=== PATIENT | male | born 1945 | race Caucasian/White ===

== ENCOUNTER 2019-11-03 12:44 | Emergency (ER) | payer BC, SELFPAY ==
--- NOTE | ~2019-11-03 | XR_ITS ---
EXAMINATION: XR chest 1V portable INDICATION: Weakness and diarrhea TECHNIQUE: Portable AP chest at 1317 hours COMPARISON: None available FINDINGS: The lungs are free of acute opacities. There is no pleural effusion or pneumothorax. The ca rdiomediastinal silhouette is normal. The visualized bones and soft tissues are unremarkable. IMPRESSION: 1. No acute cardiopulmonary abnormality. Reviewed, dictated and finalized at location A.
[2019-11-03 12:49] VITALS: BP 160/79; PULSE 79; RESP 18; TEMP 36.9; O2SAT 100
[2019-11-03] MEDS: LACTATED RINGERS 1,000 ML 999 ML IV CONT ×2 (13:17→15:49)
[2019-11-03 13:22] LABS: Basophils Absolute Auto 0.1 K/mm3 (0.0-0.1); Basophils Percent Auto 0.7 % (0.2-1.2); Eosinophils Absolute Auto 0.4 K/mm3 (0-0.3); Hematocrit 42.8 % (42.0-52.0); Hemoglobin 14.4 g/dL (14.0-18.0); Immature Granulocyte Absolute 0.05 K/mm3 (0.00-0.031); Immature Granulocyte Percent A 0.5 % (0-0.5); Lymphocytes Absolute Auto 2.12 K/mm3 (0.9-3.2); Lymphocytes Percent Auto 22.7 % (18.3-44.2); Mean Corpuscular HGB Conc 33.6 g/dl (32-36); Mean Corpuscular Hemoglobin 29.6 pg (26-34); Mean Corpuscular Volume 87.9 fl (80-100); Monocytes Absolute Auto 1.1 K/mm3 (0.1-0.6); Monocytes Percent Auto 11.5 % (2.6-8.5); Neutrophils Absolute Auto 5.7 K/mm3 (1.3-6.7); Neutrophils Percent Auto 60.6 % (45.5-73.1); Platelet Count Result 369 k/mm3 (150-375); Red Blood Count 4.87 M/mm3 (4.6-6.20); White Blood Count 9.3 K/mm3 (4.5-10.0)
[2019-11-03 14:00] LABS: Alanine Aminotransferase 47 U/L (4-50); Albumin Level 3.7 g/dL (3.5-5.1); Alkaline Phosphatase 71 U/L (38-126); Aspartate Amino Transferase 39 U/L (17-59); Bilirubin,Total 0.2 mg/dL (0.2-1.3); Blood Urea Nitrogen 13 mg/dL (9-20); Calcium 8.3 mg/dL (8.4-10.2); Carbon Dioxide 29 mmol/L (22-30); Chloride 103 mmol/L (98-107); Estimated CRCL calculation 76 ml/min; Estimated Glomerular Filt Rate > 60; Glucose 129 mg/dL (75-110); Lipase 97 U/L (23-300); Potassium 3.8 mmol/L (3.4-5.0); Sodium 138 mmol/L (137-145)
--- NOTE | 2019-11-03 14:07 | ED.NAVMDI ---
HPI - Nausea/Vomiting/Diarrhea General Chief complaint: Nausea/Vomiting/Diarrhea Stated complaint: Diarrhea, Sent From [facility] Time Seen by Provider: 11/03/19 12:51 Source: patient Mode of arrival: ambulatory Limitations: no limitations History of Present Illness HPI Narrative: This patient is a 74 year old male who presents for evaluation fatigue due to diarrhea. PAtient states he developed diarrhea, nausea and vomiting 2 weeks ago. He states these symptoms started after starting Keflex for an abscess on his neck. He was tested for COVID at that time he was found to be negative. He states his symptoms then resolved but they return on Tuesday. He does not have nausea, vomiting or fever any more but he is having multiple episodes of watery, nonbloody diarrhea. He also denies abdominal pain. He called his Primary Care physician, Dr. Barboza because of his symptoms with fatigue. He was informed to come to ER for IV fluids and evaluation for cdiff. Related Data Home Medications Medication Instructions Recorded Confirmed blood-glucose meter,continuous #1 each 04/12/19 10/19/19 losartan 25 mg tablet 25 mg PO DAILY 04/12/19 10/19/19 insulin glargine 100 unit/mL (3 21 unit SUB-Q DAILY ml 06/05/19 10/19/19 mL) subcutaneous pen Allergies Allergy/AdvReac Type Severity Reaction Status Date / Time No Known Allergies Allergy Verified 10/19/19 08:29 Review of Systems Constitutional: Constitutional: Denies chills, Reports fatigue, Reports fever(s) and Reports weakness ENT: Denies epistaxis and Denies sore throat Cardiovascular: Cardiovascular: Denies chest pain Respiratory: Respiratory: Denies cough and Denies dyspnea Gastrointestinal: Gastrointestinal: Reports diarrhea, Reports nausea and Reports vomiting Musculoskeletal: Musculoskeletal: Denies myalgias [facility] Past Medical History Medical History Erectile dysfunction HLD (hyperlipidemia) HTN (hypertension) Lumbar post-laminectomy syndrome Type 2 diabetes mellitus Surgical History Surgical History Subcutaneous mass of back Social History Social History Smoking status: Former smoker Smoking end date: 05/23/99 Alcohol intake: current Drinks per week: 2 Substance use: never Gender identity (if verbalized by the patient): Male Exam Narrative: Exam Narrative: GENERAL: Well-appearing, well-nourished, and in no acute distress. HEAD: Normocephalic, atraumatic EYES: EOMI, conjunctiva clear without discharge THROAT:Mucous membranes moist, NECK: Supple, without lymphadenopathy or mass RESPIRATORY: No respiratory distress, Airway patent, Respirations non-labored, Clear to auscultation without rales, rhonchi or wheeze HEART: Regular rate and rhythm. No murmur heard. Normal peripheral pulses. ABDOMEN: Soft, nontender, nondistended, normal active bowel sounds. No masses. No rebound or guarding, No organomegaly. EXTREMITIES: No edema, normal strength with full range of motion. SKIN: Warm, dry, normal color without rash NEURO: Alert and oriented x3. CN 2-12 grossly intact. No focal deficits. PSYCH: Normal mood and affect. Course Reevaluation(s) Reevaluation #1: Patient states he feels much better after IVF. His labs are unremarkable. He has not had any diarrhea in ER but he will be sent out with cholestyramine at PCP request . Dr. Barboza will follow up with c diff evaluation. Date: 11/03/19 Time: 15:57 Vital Signs Vital signs: Vital Signs Temperature 98.5 F 11/03/19 12:49 Pulse Rate 79 11/03/19 12:49 Respiratory Rate 18 11/03/19 12:49 Blood Pressure 160/79 H 11/03/19 12:49 Pulse Oximetry 100 11/03/19 12:49 Temperature 98.5 F 11/03/19 12:49 Pulse Rate 78 11/03/19 15:26 Respiratory Rate 18 11/03/19 15:26 Blood Pressure 139/77 06
[2019-11-03 14:20] VITALS: BP 146/75; PULSE 76
[2019-11-03 14:21] VITALS: BP 142/73; PULSE 77
[2019-11-03 14:22] VITALS: BP 143/77; PULSE 79
[2019-11-03 15:26] VITALS: BP 139/77; PULSE 78; RESP 18; O2SAT 99
[2019-11-03 15:38] LABS: Add Urine Microscopic? YES; Amorphous Sediment Urine Few; Appearance Urine Clear (Clear); Bilirubin Urine Negative (Negative); Blood Urine Negative (Negative); Color Urine Yellow (Yellow); Glucose Urine UA Negative (Negative); Ketones Urine Trace mg/dL (Negative); Leukocyte Esterase Ur Negative LEU/UL (Negative); Mucus Urine Rare /lpf; Nitrate Urine Negative (Negative); Protein Urine 1+ mg/dL (Negative); RBC Urine 0-2 /hpf (0-2); Specific Grav Ur 1.028 (1.001-1.035); Squamous Epithelial Cell Urine Rare /hpf (Few); WBC Urine 0-3 /hpf
--- NOTE | 2019-11-09 22:40 | PC.NURSE ---
LATE ENTRY This note is being entered to document information to the patient's record. The following information was omitted on [11/09/2019], by [nicolette weeks rn lr stopped at 16:49]
== END 2019-11-03 16:27 | disposition home or self-care (01) ==
PROVIDERS: Emergency Provider General Practice; PCP Internal Medicine
DX: R19.7 Diarrhea, unspecified (principal); E78.5 Hyperlipidemia, unspecified; I10 Essential (primary) hypertension; E11.9 Type 2 diabetes mellitus without complications; Z87.891 Personal history of nicotine dependence; Z79.4 Long term (current) use of insulin
CPT/HCPCS: 36415; 71045; 80053; 81001; 83690; 85025; 96360; 96361; 99283; J7120

== ENCOUNTER 2019-11-16 15:37 | Outpatient (CLI) | payer BC, SELFPAY ==
[2019-11-16 17:31] LABS: Erythrocyte Sedimentation Rate 17 mm/hr (0-20)
[2019-11-20 20:16] LABS: Gliadin AB, IgG 3 Units (<20); Reticulin IgA Negative (Negative); TTG IGA AB 1 U/mL (<4)
== END 2019-11-16 15:38 | disposition home or self-care (01) ==
LOC: ANHLAB 15:37
PROVIDERS: PCP Internal Medicine; Visit Provider Clinical Nurse Specialist
DX: R19.7 Diarrhea, unspecified (principal)
CPT/HCPCS: 36415; 83516; 85652; 86255; 87045; 87046; 87177; 87209; 87427; 89055

== ENCOUNTER 2020-01-02 11:50 | Outpatient (CLI) | payer BC, SELFPAY ==
[2020-01-02 12:03] LABS: Basophils Absolute Auto 0.1 K/mm3 (0.0-0.1); Basophils Percent Auto 0.9 % (0.2-1.2); Eosinophils Absolute Auto 0.4 K/mm3 (0-0.3); Eosinophils Percent Auto 4.1 % (0-4.4); Hematocrit 45.9 % (42.0-52.0); Hemoglobin 15.3 g/dL (14.0-18.0); Immature Granulocyte Absolute 0.03 K/mm3 (0.00-0.031); Immature Granulocyte Percent A 0.3 % (0-0.5); Lymphocytes Absolute Auto 2.12 K/mm3 (0.9-3.2); Lymphocytes Percent Auto 23.1 % (18.3-44.2); Mean Corpuscular HGB Conc 33.3 g/dl (32-36); Mean Corpuscular Hemoglobin 29.4 pg (26-34); Mean Corpuscular Volume 88.1 fl (80-100); Mean Platelet Volume 8.5 fl (7.4-10.4); Monocytes Absolute Auto 0.9 K/mm3 (0.1-0.6); Monocytes Percent Auto 9.5 % (2.6-8.5); Neutrophils Absolute Auto 5.7 K/mm3 (1.3-6.7); Neutrophils Percent Auto 62.1 % (45.5-73.1); Platelet Count Result 339 k/mm3 (150-375); Red Blood Count 5.21 M/mm3 (4.6-6.20); Red Cell Distribution Width 13.8 % (11.5-14.5); White Blood Count 9.2 K/mm3 (4.5-10.0)
[2020-01-02 12:15] LABS: Anion Gap 9 mmol/L (8-16); Blood Urea Nitrogen 15 mg/dL (9-20); Calcium 8.9 mg/dL (8.4-10.2); Carbon Dioxide 29 mmol/L (22-30); Chloride 99 mmol/L (98-107); Estimated Glomerular Filt Rate > 60; Glucose 179 mg/dL (75-110); Hemoglobin A1C 6.1 % (<5.7); Potassium 4.3 mmol/L (3.4-5.0); Sodium 137 mmol/L (137-145)
== END 2020-01-02 11:51 | disposition home or self-care (01) ==
PROVIDERS: PCP Internal Medicine; Visit Provider Internal Medicine
DX: E11.9 Type 2 diabetes mellitus without complications (principal); Z79.4 Long term (current) use of insulin
CPT/HCPCS: 36415; 80048; 83036; 85025

== ENCOUNTER 2020-02-23 01:27 | Outpatient (CLI) | payer BC, SELFPAY ==
[2020-02-23 17:59] LABS: SARS-CoV-2 RNA PCR Negative
== END 2020-02-23 01:28 | disposition home or self-care (01) ==
LOC: ANHCOVIDDT 01:28
PROVIDERS: PCP Internal Medicine; Visit Provider Surgery
DX: Z01.812 Encounter for preprocedural laboratory examination (principal); Z20.828 Contact with and (suspected) exposure to other viral communicable diseases
CPT/HCPCS: 87635; C9803; U0003

== ENCOUNTER 2020-02-23 08:51 | Outpatient (CLI) | payer BC, SELFPAY ==
--- NOTE | 2020-02-23 09:06 | ECG_ITS ---
Measurements Intervals [place] Rate: 72 P: 45 CO: 185 QRS: 1 QRSD: 99 T: 10 QT: 387 QTc: 425 Interpretive Statements SINUS RHYTHM BORDERLINE T WAVE ABNORMALITY- INFERIOR LEADS BORDERLINE ECG Electronically Signed On 02-23-2020 15:05:28 CDT by Jose De Jesus Gould D.O.
== END 2020-02-23 08:52 | disposition home or self-care (01) ==
LOC: ANHIMG 08:52
PROVIDERS: PCP Internal Medicine; Visit Provider Nurse Practitioner
DX: Z01.818 Encounter for other preprocedural examination (principal); I10 Essential (primary) hypertension
CPT/HCPCS: 93005

== ENCOUNTER 2020-02-25 01:58 | Day surgery (SDC) | payer BC, SELFPAY ==
[2020-02-22 14:24] VITALS: BMI 28.1
--- NOTE | 2020-02-25 08:01 | PM.HPGS ---
History of Present Illness History of Present Illness Consent: Risks, benefits, and alternatives of excision of 2 subcutaneous masses on his back have been discussed and questions answered. Patient agrees to proceed with procedure. Chief complaint: Back Mass times two Narrative: Jermain Scanlon is a 74 year old male who has been seen in the office several times since September of this year. Initially he had developed what appeared to be infected epidermal cyst and 1 site on his back. This had to be drained in the office and subsequently packed. After that he was dealing with some low back pain and some diarrhea which she had to get situated with his medical doctor. He now has these under better control and wishes to proceed with complete excision of the subcutaneous masses thought to be possible epidermal cyst on his mid back. At the time of his last office visit in late September of this year-----Jermain returned to the office 5 weeks after an I&D of a back abscess on 10/12/2019. Patient reported at that time that he was doing well. Patient reported that he had finished the antibiotics that were prescribed for him. He reported two weeks before that he had to go to the ER due to having persistent diarrhea x 2 weeks and was placed on antibiotics and Questrin powder. He reported that he finished these medications and then he was starting to have diarrhea again. He reports that the problem that day may have been that he ate the wrong food the day before. He last had a Cologaurd test he believes last year (2018) through his PCP. He reports that he is no longer packing the area on the back. Denies any complaints or issues with his back incision and states it is no longer tender or bothering him. Once these issues were under control the patient called our office and he is now scheduled to have complete excision of the non inflamed subcutaneous masses on its back. Review of Systems Constitutional: Constitutional: Reports no additional constitutional complaints, Reports fatigue and Denies malaise Eyes: Eyes: Denies change in vision and Denies loss of vision ENT: Reports Normal hearing present, Denies change in voice, Denies dizziness, Denies hoarseness and Denies sore throat Cardiovascular: Cardiovascular: Denies chest pain, Denies leg edema and Denies dyspnea Comments: Known history of hyperlipidemia and hypertension under control with medication. Respiratory: Respiratory: Denies cough, Denies dyspnea and Denies wheezing Gastrointestinal: Gastrointestinal: Denies hematochezia, Denies change in bowel habits and Denies heartburn Genitourinary: Genitourinary: Denies urinary frequency and Denies urinary incontinence Musculoskeletal: Comments: Patient has been having some back pain. This is somewhat improved with physical therapy. He will be having an MRI of the back in 2 days. Neurologic: Reports Normal hearing present, Denies confusion, Denies dizziness, Denies loss of vision, Denies memory loss and Denies seizure-like activity Psychiatric: Psychiatric: Denies confusion, Denies depression and Denies memory loss Endocrine: Endocrine: Denies cold intolerance and Reports fatigue Comments: Has known diabetes mellitus takes insulin and blood sugars are under fairly good control. Hematologic/Lymphatic: Hematologic/Lymphatic: Denies easy bleeding and Denies easy bruising Allergic/Immunologic: Allergic/Immunologic: Denies wheezing PMFSH Past Medical History Medical History Erectile dysfunction HLD (hyperlipidemia) HTN (hypertension) Lumbar post-laminectomy syndrome Type 2 diabetes mellitus Family History Family History Father Family history of malignant neoplasm of bone, Onset Age: 76 Mother Family history of malignant neoplasm of breast in first degree relative, Onset Age: 68 Sibling Benign brain tumor Social History Social History (Re
--- NOTE | 2020-02-25 12:19 | WPDANESEPPF ---
Anes - Initial Pre Proc Eval Procedure: Operation Date: 02/25/20 13:30 Proposed Procedures p Excision Upper Back Mass Times Two - Michael Gallagher MD Date/Time: 02/25/20 12:19 Surgeon: Michael Gallagher MD Pre Op Diagnosis: Back Mass times two Patient Data Age: 74 Gender: M Height: 1.7 m Weight: 81.65 kg Allergies Allergy/AdvReac Type Severity Reaction Status Date / Time aspirin Allergy Unknown Hives Verified 02/22/20 14:09 cephalexin AdvReac Unknown Gastrointestinal Verified 02/22/20 14:08 Upset Home Medications Medication Instructions Recorded Confirmed Type blood-glucose sensor #3 each 06/22/19 02/14/20 Rx pen needle, diabetic 30 gauge x #100 each 07/09/19 02/14/20 Rx 5/16 atorvastatin 20 mg tablet 20 mg PO DAILY #90 tablet 10/08/19 02/22/20 Rx blood-glucose meter,continuous #1 each 11/16/19 02/14/20 Rx blood-glucose transmitter #1 each 11/19/19 02/14/20 Rx metformin 500 mg tablet 1,000 mg PO BID #120 tablet 12/05/19 02/22/20 Rx insulin glargine 100 unit/mL (3 16 unit SUB-Q .HS #15 ml 01/03/20 02/22/20 Rx mL) subcutaneous pen losartan 25 mg tablet 25 mg PO DAILY #90 tablet 02/19/20 02/22/20 Rx Patient hx anesthesia problems: none Family hx anesthesia problems: none PMFSH Past Medical History Medical History Erectile dysfunction HLD (hyperlipidemia) HTN (hypertension) Lumbar post-laminectomy syndrome Type 2 diabetes mellitus Family History Family History Father Family history of malignant neoplasm of bone, Onset Age: 76 Mother Family history of malignant neoplasm of breast in first degree relative, Onset Age: 68 Sibling Benign brain tumor Social History Social History Smoking status: Never smoker Smoking end date: 05/23/99 Alcohol intake: current Drinks per week: 2 Alcohol use details: WINE Substance use: never Living arrangements: with family Gender identity (if verbalized by the patient): Male Spiritual care concerns: No Anes - Eval Final PreProcedure Day of Procedure 02/25/20 12:19 Patient weight: overweight Heart: regular rate and rhythm Lungs: clear to auscultation and normal air movement Airway: Mallampati scale class III Neurological: alert and oriented Last oral intake: >/= 8 hours ASA classification: III Emergent: no Anesthetic plan: proceed Anesthesia type and monitoring: general GIVS and standard monitoring Informed Consent: The patient's anesthetic plan and its attendant risks and benefits were discussed with the patient/family/POA. Questions were solicited and answers provided to the satisfaction of the patient/family/POA.
[2020-02-25 12:38] VITALS: BP 172/83; PULSE 72; RESP 16; TEMP 36.2; O2SAT 99
[2020-02-25 12:38] LABS: Glucose Point of Care 106 (65-105)
[2020-02-25] MEDS: LACTATED RINGERS 1,000 ML 30 ML IV CONT (12:57)
--- NOTE | 2020-02-25 13:05 | WPDHPUPDATE1 ---
History and Physical Update Update Date/Time: 02/25/20 13:05 History and Physical has been reviewed, including an updated exam of the patient. There are NO changes in the patient's condition. Risks, benefits, and alternatives of excision of 2 subcutaneous masses upper mid back have been discussed and questions answered. Patient agrees to proceed with procedure.
[2020-02-25] MEDS: CLINDAMYCIN 900 MG/NS 50 ML 900 MG/50 ML PIGGYBACK 50 MG IVPB (13:17)
[2020-02-25] MEDS: BUPIVACAINE/EPINEPHRINE 0.5% 10 ML VIAL INFILTRATE (13:30)
--- NOTE | 2020-02-25 14:20 | PM.PROC ---
Procedure Note - Detailed Date of procedure: 02/25/20 Pre-op diagnosis: Back Mass times two 1. 3 x 5 cm epidermal cyst( just to left of spinous processes upper back) 2. 3 x 2.5 cm epidermal cyst ( overlying the spinous processes mid upper back). Post-op diagnosis: same Procedure performed: Excision of 2 subcutaneous masses upper mid back. Description of procedure: The patient was placed in the right lateral decubitus position. prior to rolling into that position and LMA was placed by anesthesia and G IV S anesthesia induced. After a surgical time out confirming patient and procedure the patient was prepped and draped in the usual sterile fashion. Local anesthetic was administered subcutaneously. The 2 lesions measured The more superior: 5 x 3 cm and the more inferior midline lesion 3 x 2.5 cm. I 1st addressed the more superior lesion which was the larger. Elliptical excision dyan was made around this with the lesion centered in a vertical oriented ellipse. An elliptical incision was made around the lesion taking a thin margin circumferentially. I dissected down to the deep subcutaneous tissues and then completely excised the lesion. Bleeding was controlled with electrocautery. The wound was closed in two layers. An un-dyed 2-0 vicryl deep dermal and then a 4-0 undyed Monocryl running subcuticular closure was completed. I then addressed the more midline lesion which had previously been infected but had an indentation in it. I outlined in oriented ellipse somewhat angled in order to center the lesion and the previous site of drainage in the ellipse. An elliptical incision was made around the lesion taking a thin margin circumferentially. I dissected down to the deep subcutaneous tissues and then completely excised the lesion. Bleeding was controlled with electrocautery. The wound was closed in two layers. An un-dyed 2-0 vicryl deep dermal and then a 4-0 undyed Monocryl running subcuticular closure was completed. Surgical glue applied as dressing On top of both incisions. Estimated blood loss approximately 10 cc Patient tolerated this well. Implants: none Anesthesia: GLMA Surgeon: Michael Gallagher MD Medical Technologist Prn: ALEJANDRO Gambino, OR 1st assist Estimated blood loss (mL): 10 Drains: No Packing: No Pathology: yes ( both subcutaneous cysts sent for pathology ( suspected epidermal cysts)) Complications: No immediate complications Condition: stable Disposition: same day Findings: 2 non- infected epidermal cysts of the skin and subcutaneous tissue of upper back the more superior 1 without previous infection the more central 1 slightly more inferior with previous history of infection and some scarring in indentation at its upper right corner
[2020-02-25 14:21] VITALS: BP 102/60; PULSE 68; RESP 15; O2SAT 94
[2020-02-25 14:32] LABS: Glucose Point of Care 92 (65-105)
[2020-02-25 14:50] VITALS: BP 139/75; PULSE 65; O2SAT 96
[2020-02-25 15:20] VITALS: BP 152/78; PULSE 60
== END 2020-02-25 15:35 | disposition home or self-care (01) ==
PROVIDERS: PCP Internal Medicine; Visit Provider Surgery
PROC: (CPT 11406; principal; 2020-02-25 13:30)
DX: L72.0 Epidermal cyst (principal); I10 Essential (primary) hypertension; E11.9 Type 2 diabetes mellitus without complications; E78.5 Hyperlipidemia, unspecified; Z79.84 Long term (current) use of oral hypoglycemic drugs; Z79.4 Long term (current) use of insulin
CPT/HCPCS: 11406 ×2; 12032; 88304; J2704; J3010; J7120

== ENCOUNTER 2020-02-27 16:52 | Outpatient (CLI) | payer BC, SELFPAY ==
--- NOTE | ~2020-02-27 | MR_ITS ---
EXAMINATION: MR lumbar spine wo [facility] EXAM DATE: 02/27/2020 17:38 INDICATION: Postlaminectomy syndrome. TECHNIQUE: Multi-sequential, multiplanar MR images of the lumbar spine were obtained without contrast . Sagittal T1, T2, T2 fat saturation images. Axial T2 weighted images. Comparison is made to prior examination from 04/17/2010. FINDINGS: Evidence of remote right laminotomy at L2-3. There is heterogeneous bone marrow signal, wit h some small scattered hemangiomas as well. Moderate to severe disc disease L1-2, L2-3 and L4-5, mode rate at L3-4 and mild to moderate at L5-S1. There is 2 mm retrolisthesis L2 on L3, 3 mm anterolisthes is L5 on S1 without spondylolysis suspected. The conus medullaris terminates at the T12-L1 level and has normal signal intensity and morphology. There is mild diffuse loss of lumbar vertebral body heig hts. Bilateral renal fluid signal intensity lesions consistent with cysts. Level by level evaluation: T12-L1: Disc does not extend beyond the endplate margin. Facet arthropathy: Mild bilateral. Neural foraminal stenosis: No stenosis. Central canal stenosis: No stenosis. L1-L2: There is a mild to moderate diffuse disc bulge. Facet arthropathy: Mild to moderate. Neural foraminal stenosis: Mild to moderate right, mild left. Central canal stenosis: Mild. L2-L3: There is a moderate diffuse disc bulge. Facet arthropathy: Mild to moderate. Neural foraminal stenosis: Moderate bilateral. Central canal stenosis: Mild to moderate. L3-L4: There is a moderate diffuse disc bulge. Facet arthropathy: Mild to moderate . Ligamentum flavum enlargement. Neural foraminal stenosis: Moderate left, mild to moderate right. Central canal stenosis: Moderate. L4-L5: There is a large diffuse disc bulge. Facet arthropathy: Moderate . Ligamentum flavum enlargement. Neural foraminal stenosis: Moderate to severe left, moderate right. Central canal stenosis: Moderate to severe. L5-S1: There is a moderate diffuse disc bulge. Facet arthropathy: Severe. Neural foraminal stenosis: Moderate left, mild to moderate right. Central canal stenosis: Mild to moderate. IMPRESSION: 1. L4-5 moderate to severe central canal stenosis, moderate at L3-4. 2. Moderate to severe multilevel disc disease. Reviewed, dictated and finalized at location B.
== END 2020-02-27 16:53 | disposition home or self-care (01) ==
PROVIDERS: PCP Internal Medicine; Visit Provider Nurse Practitioner
DX: M96.1 Postlaminectomy syndrome, not elsewhere classified (principal)
CPT/HCPCS: 72148

== ENCOUNTER 2020-03-25 09:57 | Outpatient (CLI) | payer BC, SELFPAY ==
--- NOTE | ~2020-03-25 | US_ITS ---
EXAMINATION: US abdomen limited EXAM DATE: 03/25/2020 10:47 INDICATION: R10.11 - Right upper quadrant pain . TECHNIQUE: Multiple grayscale and Doppler images of the abdomen right upper quadrant were obtained (b y a technologist who performed the scan) and subsequently reviewed. There is no prior study for ashley ceballos. FINDINGS: The pancreatic head and body are normal in appearance. The pancreatic tail is not visualized. The l iver has normal echogenicity and contour. Suspect left liver lobe lesion measuring 3.6 cm. Liver les ions are nonspecific by ultrasound. There is no evidence of intrahepatic biliary duct dilation. Por je venous flow was seen in the hepatopedal, normal direction and has normal Doppler waveform. No ri ght-sided hydronephrosis. There is 3 cm right renal cyst. Common bile duct measures 2 mm, which is normal. The gallbladder is moderately distended with severel y thickened wall at 6 mm, possible trace pericholecystic fluid. There is cholelithiasis suspected at the gallbladder neck. Patient didn't demonstrate a sonographic Reddy's sign. IMPRESSION: 1. Probable nonspecific left liver lobe lesion; follow-up CT or MRI with contrast. 2. Findings consistent with acute cholecystitis. STAT hold and call. I confirmed with Genia that patient is in waiting room, and who is notifying ord ering doctor of results. Patient will be given instructions at that time. Reviewed, dictated and finalized at location B. DRAFTSMAN IMPRESSION: 1. Probable nonspecific left liver lobe lesion; follow-up CT or MRI with contr ast. 2. Findings consistent with acute cholecystitis. STAT hold and call. I confirmed with Genia that patient is in waiting room, an d who is notifying ordering doctor of results. Patient will be given instructio ns at that time.
== END 2020-03-25 09:58 | disposition home or self-care (01) ==
LOC: ANHIMG 09:58
PROVIDERS: PCP Internal Medicine; Visit Provider Nurse Practitioner
DX: R10.11 Right upper quadrant pain (principal); R93.89 Abnormal findings on diagnostic imaging of other specified body structures
CPT/HCPCS: 76705

== ENCOUNTER 2020-03-25 12:27 | Day surgery (SDC) | payer BC, SELFPAY ==
[2020-03-25] VITALS (13 sets, daily range): BP systolic 129–156; BP diastolic 63–94; PULSE 84–106; RESP 16–20; TEMP 36.2–36.7; O2SAT 94–100
--- NOTE | 2020-03-25 12:48 | ED.ABDPAIN ---
HPI - Abdominal Pain General Chief Complaint: Abdominal Pain Stated Complaint: Inflanned Gallbladder Time Seen by Provider: 03/25/20 12:40 Source: patient History of Present Illness HPI narrative: 74-year-old male presents to emergency department for cholecystitis. Patient states he has had epigastric pain that has moved to the right upper quadrant since Tuesday. Has not had this type of pain before in the past. Took ibuprofen this morning to help with the pain. Patient saw his family doctor this morning, and was sent in for an ultrasound today, which showed cholecystitis. Patient denies nausea and vomiting. No fever or chills. No chest pain or shortness of breath. Related Data Allergies Allergy/AdvReac Type Severity Reaction Status Date / Time aspirin Allergy Unknown Hives Verified 03/25/20 15:25 cephalexin AdvReac Unknown Gastrointestinal Verified 03/25/20 15:25 Upset Review of Systems Review of Systems: Narrative: CONSTITUTIONAL: Denies fever, chills, or sweats. EYES: Denies visual changes, redness, or discharge. ENT: Denies rhinorrhea, congestion, sore throat, or otalgia. CARDIOVASCULAR: Denies chest pain, palpitations, or edema. RESPIRATORY: Denies cough or dyspnea. GASTROINTESTINAL: Denies abdominal pain, nausea, vomiting, or diarrhea. GENITOURINARY: Denies dysuria or hematuria. SKIN: Denies rash or itching. MUSCULOSKELETAL: Denies back pain, joint pain, or myalgia. NEUROLOGIC: Denies headache, numbness, dizziness, or weakness. PSYCHIATRIC: Denies anxiety or depression. All systems reviewed & are unremarkable except as noted in HPI and below (ROS) [facility] Past Medical History Medical History (Updated 03/25/20 @ 20:59 by Raffi Camargo DO) Erectile dysfunction HLD (hyperlipidemia) HTN (hypertension) Lumbar post-laminectomy syndrome Type 2 diabetes mellitus (Unknown) Surgical History Surgical History Subcutaneous mass of back Family History Family History Father Family history of malignant neoplasm of bone, Onset Age: 76 Mother Family history of malignant neoplasm of breast in first degree relative, Onset Age: 68 Sibling Benign brain tumor Social History Social History Smoking status: Never smoker Smoking end date: 05/23/99 Alcohol intake: current Drinks per week: 2 Substance use: never Gender identity (if verbalized by the patient): Male Spiritual care concerns: No Exam Narrative: Exam Narrative: GENERAL: Well-appearing, well-nourished, and in no acute distress. HEAD: Normocephalic, atraumatic. EYES: PERRLA and EOMI. ENT: Nares clear, no rhinorrhea or epistaxis. Mucous membranes moist. NECK: Supple. CHEST: Clear to auscultation. No respiratory distress. HEART: Regular rate and rhythm. No murmur heard. Normal peripheral pulses. ABDOMEN: Right upper quadrant TTP EXTREMITIES: Normal range of motion. No edema. SKIN: Warm, dry, no rash. NEURO: No focal deficits. Alert and oriented x3. PSYCH: Normal mood and affect. Course Consultations Consultation #1: [id number] - discussed case wtih Dr. Fritz, accepts admission [id number] - discussed case with Dr. Gallagher, agrees to consult Vital Signs Vital signs: Vital Signs Temperature 36.2 C L 03/25/20 12:33 Pulse Rate 106 H 03/25/20 12:33 Respiratory Rate 18 03/25/20 12:33 Blood Pressure 136/71 03/25/20 12:33 Pulse Oximetry 98 03/25/20 12:33 Temperature 36.7 C 03/25/20 17:58 Pulse Rate 86 03/25/20 19:50 Respiratory Rate 20 03/25/20 19:50 Blood Pressure 134/84 03/25/20 19:50 Pulse Oximetry 94 03/25/20 18:50 MDM - Abdominal Pain Medical Records Attestation: I reviewed the patient's medical records. Lab Data Attestation: I reviewed the patient's lab results. Result diagrams: 03/25/20 13:01 03/25/20 13:01
[2020-03-25 13:16] LABS: Basophils Absolute Auto 0.1 K/mm3 (0.0-0.1); Basophils Percent Auto 0.3 % (0.2-1.2); Eosinophils Absolute Auto 0.1 K/mm3 (0-0.3); Eosinophils Percent Auto 0.9 % (0-4.4); Hematocrit 43.5 % (42.0-52.0); Immature Granulocyte Absolute 0.05 K/mm3 (0.00-0.031); Immature Granulocyte Percent A 0.3 % (0-0.5); Lymphocytes Absolute Auto 1.49 K/mm3 (0.9-3.2); Mean Corpuscular HGB Conc 34.5 g/dl (32-36); Mean Corpuscular Hemoglobin 29.6 pg (26-34); Mean Platelet Volume 8.7 fl (7.4-10.4); Monocytes Absolute Auto 1.5 K/mm3 (0.1-0.6); Monocytes Percent Auto 9.7 % (2.6-8.5); Neutrophils Absolute Auto 11.7 K/mm3 (1.3-6.7); Neutrophils Percent Auto 78.8 % (45.5-73.1); Platelet Count Result 312 k/mm3 (150-375); Red Blood Count 5.06 M/mm3 (4.6-6.20); Red Cell Distribution Width 12.8 % (11.5-14.5); White Blood Count 14.9 K/mm3 (4.5-10.0)
[2020-03-25 13:28] LABS: Alanine Aminotransferase 20 U/L (4-50); Albumin Level 4.2 g/dL (3.5-5.1); Alkaline Phosphatase 107 U/L (38-126); Anion Gap 12 mmol/L (8-16); Aspartate Amino Transferase 23 U/L (17-59); Bilirubin,Total 0.7 mg/dL (0.2-1.3); Blood Urea Nitrogen 22 mg/dL (9-20); Calcium 9.2 mg/dL (8.4-10.2); Carbon Dioxide 29 mmol/L (22-30); Chloride 96 mmol/L (98-107); Estimated CRCL calculation 58 ml/min; Estimated Glomerular Filt Rate > 60; Glucose 160 mg/dL (75-110); Potassium 3.7 mmol/L (3.4-5.0); Sodium 137 mmol/L (137-145)
[2020-03-25 13:29] LABS: Lactic Acid Reflex 1.3 mmol/L (0.7-2.1); Lipase 16 U/L (23-300)
[2020-03-25] MEDS: SODIUM CHLORIDE 0.9% IV 1,000 ML 999 ML IV CONT (14:11)
--- NOTE | 2020-03-25 14:45 | PM.IMHP ---
H&P: HPI History of Present Illness Date/Time: 03/25/20 14:45 Chief complaint: Leslye Narrative: Jermain Scanlon is a 74 year old male who is well-known to me as a recent patient now presents to emergency department for acute cholecystitis with cholelithiasis noted on an outpatient ultrasound done today when ordered by his PCP.. Patient states he has had epigastric pain that has moved to the right upper quadrant since Tuesday. Patient states that he had pulled pork and a cheese potato salad on Tuesday evening around 7:00 p.m. and then was awakened from sleep with epigastric and mid abdominal pain about midnight Tuesday night and Tuesday. He has not had this type of pain before in the past. He stated that he took ibuprofen this morning to help with the pain. Patient saw his family doctor this morning, and was sent in for an ultrasound today, which showed cholecystitis With cholelithiasis. Patient denies nausea and vomiting. No fever or chills. No chest pain or shortness of breath. he is also not noted any dark-colored urine or yellowing of the skin. Also seen on the ultrasound and discussed with the patient and his in the ER is a pox possible 3.5 cm mass on the left lobe of the liver. I will plan to evaluate this during surgery and decide whether not is Sineff it is appropriate to do a wedge or a core needle biopsy of this. It could be a hemangioma of the liver and I explained to the patient his that I would not biopsy it if it looks like that Review of Systems Constitutional: Constitutional: Reports as per HPI and Denies headache(s) Eyes: Eyes: Denies loss of vision and Denies eye pain ENT: Reports Normal hearing present, Denies change in voice, Denies dizziness and Denies headache(s) Cardiovascular: Cardiovascular: Denies chest pain and Denies dyspnea Comments: Known history of elevated lipids an on Atorvstatin 20 mg once a day. Respiratory: Respiratory: Denies dyspnea and Denies wheezing Gastrointestinal: Gastrointestinal: Reports abdominal pain ( Mainly in the upper mid and right upper quadrant of the abdomen), Denies nausea and Denies vomiting Musculoskeletal: Musculoskeletal: Denies back pain and Denies arthralgias Integumentary/Breasts: Comments: history of 2 large epidermal cyst on his back which have now been excised. He still has a small opening 1 of the incision sites that is draining serosanguineous fluid. Neurologic: Reports Normal hearing present, Denies dizziness, Denies headache(s), Denies loss of vision and Denies memory loss Psychiatric: Psychiatric: Denies memory loss and Denies panic attacks Endocrine: Endocrine: Reports no additional endocrine complaints Comments: Known type 2 diabetes mellitus on metformin. Also takes insulin at HS. Hematologic/Lymphatic: Hematologic/Lymphatic: Reports no additional hematologic/lymphatic complaints Allergic/Immunologic: Allergic/Immunologic: Denies wheezing PMFSH Past Medical History Medical History (Updated 03/25/20 @ 15:02 by Michael Gallagher MD) Erectile dysfunction HLD (hyperlipidemia) HTN (hypertension) Lumbar post-laminectomy syndrome Type 2 diabetes mellitus (Unknown) Surgical History Surgical History Subcutaneous mass of back Family History Family History Father Family history of malignant neoplasm of bone, Onset Age: 76 Mother Family history of malignant neoplasm of breast in first degree relative, Onset Age: 68 Sibling Benign brain tumor Social History Social History Smoking status: Never smoker Smoking end date: 05/23/99 Alcohol intake: current Drinks per week: 2 Substance use: never Gender identity (if verbalized by the patient): Male Spiritual care concerns: No Meds Home Medications and Allergies Home Medications Medication I
--- NOTE | 2020-03-25 14:59 | WPDANESEPPF ---
Anes - Initial Pre Proc Eval Procedure: Operation Date: 03/25/20 15:00 Proposed Procedures p Laparoscopic Cholecystectomy, Possible Intraoperative Cholangiograms, Possible Liver Biopsy - Michael Gallagher MD Date/Time: 03/25/20 14:59 Surgeon: Michael Gallagher MD Pre Op Diagnosis: Leslye Patient Data Age: 74 Gender: M Height: 1.68 m Weight: 81.6 kg Last Vital Signs Temp 36.2 C L 03/25/20 12:33 Pulse 90 03/25/20 14:15 Resp 16 03/25/20 14:15 BP 129/79 03/25/20 14:15 Pulse Ox 99 03/25/20 14:15 Allergies Allergy/AdvReac Type Severity Reaction Status Date / Time aspirin Allergy Unknown Hives Verified 03/25/20 09:02 cephalexin AdvReac Unknown Gastrointestinal Verified 03/25/20 09:02 Upset Home Medications Medication Instructions Recorded Confirmed Type atorvastatin 20 mg tablet 20 mg PO DAILY #90 tablet 10/08/19 03/13/20 Rx blood-glucose meter,continuous #1 each 11/16/19 03/13/20 Rx insulin glargine 100 unit/mL (3 16 unit SUB-Q .HS #15 ml 01/03/20 03/13/20 Rx mL) subcutaneous pen losartan 25 mg tablet 25 mg PO DAILY #90 tablet 02/19/20 03/13/20 Rx blood-glucose sensor #3 each 02/26/20 03/13/20 Rx metformin 500 mg tablet 1,000 mg PO BID #120 tablet 02/26/20 03/13/20 Rx pen needle, diabetic 30 gauge x #100 each 02/26/20 03/13/20 Rx 10/05 blood-glucose transmitter #1 each 03/25/20 03/25/20 Rx Laboratory Tests 03/25/20 03/25/20 03/25/20 13:01 13:01 13:01 WBC 14.9 K/mm3 H K/mm3 (4.5-10.0) RBC 5.06 M/mm3 M/mm3 (4.6-6.20) Hgb 15.0 g/dL g/dL (14.0-18.0) Hct 43.5 % % (42.0-52.0) MCV 86.0 fl fl (80-100) MCH 29.6 pg pg (26-34) MCHC 34.5 g/dl g/dl (32-36) RDW 12.8 % % (11.5-14.5) Plt Count 312 k/mm3 k/mm3 (150-375) MPV 8.7 fl fl (7.4-10.4) Immature Gran % (Auto) 0.3 % % (0-0.5) Neut % (Auto) 78.8 % H % (45.5-73.1) Lymph % (Auto) 10.0 % L % (18.3-44.2) Banner % (Auto) 9.7 % H % (2.6-8.5) Eos % (Auto) 0.9 % % (0-4.4) Baso % (Auto) 0.3 % % (0.2-1.2) Lymph # (Auto) 1.49 K/mm3 K/mm3 (0.9-3.2) Banner # (Auto) 1.5 K/mm3 H K/mm3 (0.1-0.6) Eos # (Auto) 0.1 K/mm3 K/mm3 (0-0.3) Baso # (Auto) 0.1 K/mm3 K/mm3 (0.0-0.1) Abs Immat Gran (auto) 0.05 K/mm3 H K/mm3 (0.00-0.031) Absolute Neuts (auto) 11.7 K/mm3 H K/mm3 (1.3-6.7) Absolute Nucleated RBC 0.0 K/mm3 K/mm3 (0.0-0.012) Nucleated RBC % 0.0 % % (0.0-0.2) Sodium 137 mmol/L mmol/L (137-145) Potassium 3.7 mmol/L mmol/L (3.4-5.0) Chloride 96 mmol/L L mmol/L (98-107) Carbon Dioxide 29 mmol/L mmol/L (22-30) Anion Gap 12 mmol/L mmol/L (8-16) BUN 22 mg/dL H mg/dL (9-20) Creatinine 0.90 mg/dL mg/dL (0.7-1.3) Estim Creat Clear Calc 58 ml/min ml/min Estimated GFR > 60 (59 - ) Glucose 160 mg/dL H mg/dL (75-110) Lactic Acid 1.3 mmol/L mmol/L (0.7-2.1) Calcium 9.2 mg/dL mg/dL (8.4-10.2) Total Bilirubin 0.7 mg/dL mg/dL (0.2-1.3) AST 23 U/L U/L (17-59) ALT 20 U/L U/L (4-50) Alkaline Phosphatase 107 U/L U/L (38-126) Total Protein 8.0 g/dL g/dL (6.3-8.2) Albumin 4.2 g/dL g/dL (3.5-5.1) Lipase 03/25/20 13:01 WBC RBC Hgb Hct MCV MCH MCHC RDW Plt Count MPV Immature Gran % (Auto) Neut % (Auto) Lymph % (Auto) Banner % (Auto) Eos % (Auto) Baso % (Auto) Lymph # (Auto) Banner # (Auto) Eos # (Auto) Baso # (Auto) Abs Immat Gran (auto) Absolute Neuts (auto) Absolute Nucleated RBC Nucleated RBC % Sodium Potas
[2020-03-25] MEDS: LACTATED RINGERS 1,000 ML 30 ML IV CONT ×2 (15:00→17:58)
[2020-03-25] MEDS: AMPICILLIN SULB 3 GM/NS 100 ML 3 GM/100 ML VIAL IVPB (15:08)
--- NOTE | 2020-03-25 15:28 | WPDHPUPDATE1 ---
History and Physical Update Update Date/Time: 03/25/20 15:28 History and Physical has been reviewed, including an updated exam of the patient. There are NO changes in the patient's condition. Risks, benefits, and alternatives have been discussed and questions answered. Patient agrees to proceed with procedure.
[2020-03-25] MEDS: BUPIVACAINE/EPINEPHRINE 0.25% 50 ML VIAL INFILTRATE (16:01)
--- NOTE | 2020-03-25 16:33 | SUR.OPER ---
Bile culture and sensitivity handed off to Lilliam @ [phone]
--- NOTE | 2020-03-25 18:07 | PM.PROC ---
Procedure Note - Detailed Date of procedure: 03/25/20 Pre-op diagnosis: Leslye Acute Cholecystitis with Cholelithiasis Skin lesion slightly below left of umbilicus anterior abdomen Post-op diagnosis: same Procedure performed: Laparoscopic Cholecystectomy Excision of skin lesion left lower abdomen Description of procedure: Patient was seen preoperatively in the holding area and risks, benefits and alternatives confirmed. Patient was taken to the operating room and general anesthesia was induced. A time out was then preformed with the surgery team confirming patient and site of surgery. The abdomen was prepped and draped in the usual sterile fashion. Incision was made just below the umbilicus with an 11 blade knife. I placed 2 stay sutures of O- Vicryl on either side of the mid-line fascia beneath the umbilicus and was then able to slide in the Tovar cannula through the fascial defect into the peritoneum. First under low flow and then under high flow the abdomen was insufflated with carbon dioxide never exceeding a pressure of 14. Three 5 mm trocars were then introduced under direct vision. The following trocars were introduced under direct vision: a 5 mm in the epigastrium and two 5 mm trocars along the right costal margin laterally in the subcostal area. There was significant omental adhesions to the underside of the gallbladder. These were taken down with blunt and sharp dissection using some Bovie cautery for hemostasis. We were able to dissect this completely away from the neck of the gallbladder. I then carefully used the L-shaped cautery, the 10 mm Right angle instrument and the [place] dissector to dissect out the triangle of Calot. I then was able to dissect out both the cystic duct and cystic artery and identify a window of safety. There was significant inflammation in the area of the triangle of DOLLY also pole with diligent careful dissection the structures appeared to be well delineated. The gall bladder was grasped and the cystic duct and artery were dissected free and clipped with an 10 mm endo-clip early childhood specialist. The cystic duct and artery were clipped with use of 2 clips on the patient's side 1 on the gallbladder side utilizing a 10 mm endoclip-early childhood specialist. The cystic duct was then transected. The cystic artery was also transected at this point. The gall bladder was removed using electrocautery and then removed from the abdomen using an endobag . In order to get the large stone out of the abdomen within the gallbladder I did make the fascial defect slightly larger with Driscoll scissors. Following this the defect in the fascia was about 3 cm. At this point with all the trocar still in we carefully inspected both the anterior and posterior surface of the left lobe of the liver and no obvious lesions could be identified. Therefore no liver biopsy was done. (will ask for the patient to get a CT scan of the abdomen with a hemangioma protocol approximately 1 month after his procedure). The trocars were removed visualizing hemostasis and the remaining gas evacuated. The large trocar site at the umbilicus was closed with use of the 2 stay sutures of 0 Vicryl mentioned above and also a total of 300 and 1. Vicryl sutures to bring the fascial defect back together in the midline. The 2 stay sutures mentioned above on either side of the fascia were also tied together to help approximate this midline fascia. Further local anesthetic was placed into each incision for postop pain control. The skin incisions were closed with subcuticular suture of 4-0 Monocryl. Surgical glue then was applied to all the incisions. There was an approximate 6 x 5 mm skin lesion with a 5 mm base that was amputated with a 15 blade at the end of the procedure. Local anesthetic was infiltrated underneath the prior to excision and it bled hardly at all. Surgical glue was applied over the wound and will heal in by secondary intention. Patient tolerated the procedure well was taken to the r
[2020-03-25 18:12] LABS: Glucose Point of Care 165 (65-105)
--- NOTE | 2020-03-25 18:43 | SUR.PHASEI ---
1835 - Dr. Gallagher at bedside talking with patient
--- NOTE | 2020-03-25 23:51 | PM.EVENT ---
Event Note Event Note Event Note: The patient was initially admitted to the hospitalist service with general surgery consulting, however he went to the OR from the emergency department and was able to be discharged home post cholecystectomy. Thus the patient was not seen or evaluated by the hospitalist service.
== END 2020-03-25 20:07 | disposition home or self-care (01) ==
LOC: ANHED 14:32 → ANHSURGERY 14:51
PROVIDERS: Emergency Provider Emergency Medicine; PCP Internal Medicine; Visit Provider Surgery
PROC: 0FT44ZZ Resection of Gallbladder, Percutaneous Endoscopic Approach (ICD-10-PCS; CPT 47562; principal; 2020-03-25 15:00)
DX: K80.00 Calculus of gallbladder with acute cholecystitis without obstruction (principal); L91.8 Other hypertrophic disorders of the skin; I10 Essential (primary) hypertension; E78.5 Hyperlipidemia, unspecified; E11.9 Type 2 diabetes mellitus without complications; N52.9 Male erectile dysfunction, unspecified; Z79.4 Long term (current) use of insulin; Z79.84 Long term (current) use of oral hypoglycemic drugs
CPT/HCPCS: 47562; 11403; 36415; 80053; 83605; 83690; 85025; 87040; 87070; 87075; 87205; 88304; 88305; 99285; C1713; J0295; J1100; J1165; J2405; J2704; J2710; J3010; J7030; J7120

== ENCOUNTER 2020-04-25 10:59 | Outpatient (CLI) | payer BC, SELFPAY ==
--- NOTE | ~2020-04-25 | CT_ITS ---
EXAMINATION: CT abdomen wo/w con EXAM DATE: 04/25/2020 11:52 INDICATION: Hepatomegaly. Liver mass. TECHNIQUE: Spiral CT of the abdomen was performed without and then with intravenous injection of 100 mL Omnipaque 350. Axial, coronal and sagittal images were reviewed. The dose-length product (DLP) for this examination was 1279.75 mGy-cm. The exposure was tailored according to patient size (auto m A exposure control), and iterative reconstruction (ASIR) was used as additional dose reduction techni que. Correlation is made to ultrasound dated 03/25/2020. FINDINGS: There is hypervascular arterially enhancing mass in the left liver lobe measuring up to 4.1 cm. This could be a malignancy such as primary hepatocellular cancer, carcinoid or other hypervascul ar metastatic lesion. Consider ultrasound-guided biopsy. There are cholecystectomy clips. Portal an d splenic veins are patent. Kidneys enhance symmetrically. There is no hydronephrosis. Bilateral re nal cysts, largest in the superior pole of the left kidney measuring 3.9 cm. There is no retroperit aguilera lymphadenopathy. The stomach and small bowel are unremarkable. There is expected amount of colonic stool. No free i ntraperitoneal gas. The heart is normal in size. There are no pericardial or pleural effusions. T he lung bases are unremarkable. There are no osteoblastic or osteolytic lesions identified. There is advanced lumbar spondylosis and mild to moderate thoracolumbar levoscoliosis. IMPRESSION: Hypervascular left liver lobe mass suspicious for malignancy; consider ultrasound-guided biopsy. Reviewed, dictated and finalized at location A. OR VIDEOTAPE EDITOR IMPRESSION: Hypervascular left liver lobe mass suspicious for malignancy; consi arnoldo ultrasound-guided biopsy.
[2020-04-25 11:30] LABS: Estimated Glomerular Filt Rate > 60
== END 2020-04-25 11:00 | disposition home or self-care (01) ==
LOC: ANHIMG 11:00
PROVIDERS: PCP Internal Medicine; Visit Provider Surgery
DX: K76.89 Other specified diseases of liver (principal)
CPT/HCPCS: 74170; Q9967

== ENCOUNTER 2020-05-02 11:00 | Outpatient (CLI) | payer BC, SELFPAY ==
[2020-05-02 11:49] LABS: Hemoglobin A1C 6.7 % (<5.7)
[2020-05-02 11:54] LABS: Anion Gap 8 mmol/L (8-16); Blood Urea Nitrogen 17 mg/dL (9-20); Calcium 9.1 mg/dL (8.4-10.2); Carbon Dioxide 31 mmol/L (22-30); Chloride 101 mmol/L (98-107); Cholesterol 155 mg/dL (0-200); Estimated Glomerular Filt Rate > 60; Glucose 143 mg/dL (75-110); HDL Direct 35 mg/dL; Potassium 4.2 mmol/L (3.4-5.0); Sodium 140 mmol/L (137-145); Triglycerides 119 mg/dL (<150)
[2020-05-02 12:05] LABS: LDL Cholesterol Direct 94 mg/dL
[2020-05-02 12:06] LABS: Creatinine Urine 173.5 mg/dL
[2020-05-02 12:10] LABS: MALB Creatinine Ratio 23.3 mg/g (0-30); Microalbumin Urine Random 40.4 mg/L (0-16.7)
== END 2020-05-02 11:01 | disposition home or self-care (01) ==
PROVIDERS: PCP Internal Medicine; Visit Provider Internal Medicine
DX: E11.9 Type 2 diabetes mellitus without complications (principal)
CPT/HCPCS: 36415; 80048; 80061; 82043; 83036

== ENCOUNTER 2020-05-05 02:00 | Outpatient (CLI) | payer BC, SELFPAY ==
[2020-05-05 18:35] LABS: SARS-CoV-2 RNA PCR Negative
== END 2020-05-05 02:01 | disposition home or self-care (01) ==
LOC: ANHCOVIDDT 02:00
PROVIDERS: PCP Internal Medicine; Visit Provider Surgery
DX: Z01.812 Encounter for preprocedural laboratory examination (principal); Z20.828 Contact with and (suspected) exposure to other viral communicable diseases
CPT/HCPCS: 87635; C9803; U0003

== ENCOUNTER 2020-05-09 10:50 | Outpatient (CLI) | payer BC, SELFPAY ==
--- NOTE | ~2020-05-09 | MR_ITS ---
EXAMINATION: MR abdomen wo/w con DATE: 05/09/2020 12:20 INDICATION: Liver mass. Hepatomegaly. TECHNIQUE: Magnetic resonance imaging (MRI) of the abdomen was performed without and with 15 mL Multi Jen intravenous contrast. Sequences included coronal T2-weighted FS FSE, coronal and axial FS FIEST A, axial T2-weighted FSE, coronal LAVA-flex, axial STIR FSE, axial DWI, axial dual-echo T1-weighted F SPGR, and axial LAVA. Postcontrast sequences included coronal LAVA-flex and a time course of axial LA VA. COMPARISON: CT abdomen 04/25/20, ultrasound 03/25/2020 FINDINGS: There is a 4.7 cm mass in left hepatic lobe. The mass demonstrates heterogeneous arterial hyperenhanc ement and washout. The gallbladder is absent. The spleen, pancreas, and adrenal glands are normal. Th ere are cysts in the kidneys measuring up to 4.2 cm on the left. There are no dilated loops of bowel. There are no pathologically enlarged lymph nodes. There is no free intraperitoneal fluid. IMPRESSION: 1. 4.7 cm liver mass suspicious for malignancy such as hepatocellular carcinoma or metastatic disease . Ultrasound-guided core needle biopsy is recommended. Reviewed, dictated and finalized at location A. T HISTORY CLERK IMPRESSION: 1. 4.7 cm liver mass suspicious for malignancy such as hepatocellular carcinoma or metastatic disease. Ultrasound-guided core needle biopsy is recommended.
== END 2020-05-09 10:51 | disposition home or self-care (01) ==
PROVIDERS: PCP Internal Medicine; Visit Provider Internal Medicine
DX: R16.0 Hepatomegaly, not elsewhere classified (principal)
CPT/HCPCS: 74183; A9577

== ENCOUNTER 2020-05-13 14:48 | Outpatient (CLI) | payer BC, SELFPAY ==
[2020-05-13 15:13] LABS: Hematocrit 43.3 % (42.0-52.0); Hemoglobin 14.9 g/dL (14.0-18.0); Mean Corpuscular HGB Conc 34.4 g/dl (32-36); Mean Corpuscular Hemoglobin 30.1 pg (26-34); Mean Corpuscular Volume 87.5 fl (80-100); Mean Platelet Volume 8.3 fl (7.4-10.4); Platelet Count Result 380 k/mm3 (150-375); Red Blood Count 4.95 M/mm3 (4.6-6.20); Red Cell Distribution Width 12.8 % (11.5-14.5); White Blood Count 8.3 K/mm3 (4.5-10.0)
[2020-05-13 15:24] LABS: Prothrombin Time 13.6 Seconds (11.1-14.7)
[2020-05-13 15:25] LABS: Partial Thromboplastin Time 28.1 SECONDS (22.3-36.8)
== END 2020-05-13 14:49 | disposition home or self-care (01) ==
LOC: ANHLAB 14:49
PROVIDERS: PCP Internal Medicine; Visit Provider Internal Medicine
DX: Z01.812 Encounter for preprocedural laboratory examination (principal)
CPT/HCPCS: 36415; 85027; 85610; 85730

== ENCOUNTER → 2020-07-28 06:57 | Outpatient (CLI) | payer BC, SELFPAY ==
[2020-07-29 22:47] LABS: SARS-CoV-2 RNA PCR Negative
== END ==
PROVIDERS: PCP Internal Medicine; Visit Provider Internal Medicine
DX: Z01.812 Encounter for preprocedural laboratory examination (principal); Z20.822 Contact with and (suspected) exposure to COVID-19
CPT/HCPCS: C9803; U0003; U0005

== ENCOUNTER 2021-04-26 15:51 | Observation (INO) | payer BC, SELFPAY ==
[2021-04-26] VITALS (29 sets, daily range): BP systolic 152–177; BP diastolic 73–101; PULSE 63–80; RESP 12–20; TEMP 36.2; O2SAT 92–100
--- NOTE | ~2021-04-26 | CT_ITS ---
EXAMINATION: CTA brain carotid DATE: 04/26/2021 17:23 INDICATION: Left-sided numbness. TECHNIQUE: Computed tomographic angiography (CTA) of the head was performed without and with 100 mL O mnipaque-350 intravenous contrast. CTA of the neck was performed with intravenous contrast. Automated exposure control and iterative reconstruction technique were employed. The dose-length product was 1 917.11 mGy-cm. Maximum intensity projection and volume rendered 3D-reconstructions were created by gretel sawant technologist on a separate workstation. COMPARISON: None. FINDINGS: HEAD CTA: There is no intracranial hemorrhage, acute infarction, or abnormal intracranial mass lesion . The ventricles are normal in size. There is mucosal thickening in the paranasal sinuses. The orbits are normal. The mastoid air cells are normal. Right vertebral artery is dominant. There is no signif icant stenosis of basilar artery or the posterior cerebral arteries. There is no significant stenosis of the intracranial internal carotid arteries or anterior or middle cerebral arteries. Anterior comm unicating artery is normal. The posterior communicating arteries are normal. There is no aneurysm. NECK CTA: There are no pathologically enlarged lymph nodes. There is no significant stenosis of the v ertebral arteries. There is plaque in the proximal internal carotid arteries. There is 0% stenosis of the proximal right internal carotid artery relative to normal distal artery lumen diameter (NASCET c riteria). There is 0% stenosis of the proximal left internal carotid artery relative to normal distal artery lumen diameter. There is moderate cervical spondylosis. IMPRESSION: 1. Normal brain. No aneurysm or significant intracranial arterial stenosis. 2. 0% stenosis of the proximal internal carotid arteries relative to normal distal artery lumen diame ters (NASCET criteria). Reviewed, dictated and finalized at location A. CORE DRILL OPERATOR IMPRESSION: 1. Normal brain. No aneurysm or significant intracranial arterial stenosis. 2. 0% stenosis of the proximal internal carotid arteries relative to normal dis je artery lumen diameters (NASCET criteria).
--- NOTE | ~2021-04-26 | US_ITS ---
EXAMINATION: US carotid duplex BI DATE: 04/27/2021 10:00 INDICATION: Left-sided hemiparesis and disturbance of skin sensation TECHNIQUE: Grayscale, color Doppler, and pulsed Doppler images of the cervical carotid arteries were obtained. The degree of vessel stenosis is placed in one of the following categories: normal, <50%, 5 0-69%, >=70% but less than near-occlusion, near-occlusion, or total occlusion. Note that percent sten osis relative to normal distal artery lumen diameter is indirectly measured from velocity measurement s as described by Tre, et al. Radiology 2003; 229:340-346. COMPARISON: Carotid CT angiogram dated 04/26/2021 FINDINGS: RIGHT: The right common carotid artery (CCA) peak systolic velocity (PSV) is 67 cm/s. The right internal car otid artery (ICA) PSV is 64 cm/s. The right ICA end-diastolic velocity (EDV) is 20 cm/s. The right IC A/CCA PSV ratio is 1.0. Grayscale and color Doppler images yield an estimate of <50% diameter reducti on from plaque in the ICA. The external carotid artery (ECA) PSV is 44 cm/s. There is antegrade flow in the right vertebral artery. LEFT: The left CCA PSV is 83 cm/s. The left ICA PSV is 65 cm/s. The left ICA EDV is 10 cm/s. The left ICA/C CA PSV ratio is 0.8. Grayscale and color Doppler images yield an estimate of <50% diameter reduction from plaque in the ICA. The ECA PSV is 56 cm/s. There is antegrade flow in the left vertebral artery. IMPRESSION: 1. Mild stenosis in the right internal carotid artery. 2. Mild stenosis in the left internal carotid artery. Reviewed, dictated and finalized at location B. S AND EVENTS COORDINATOR
--- NOTE | ~2021-04-26 | XR_ITS ---
EXAMINATION: XR knee LT 2V DATE: 04/26/2021 21:13 INDICATION: Left knee numbness. Difficulty ambulating. TECHNIQUE: 2 views of left knee were obtained. COMPARISON: None. FINDINGS: Bone alignment is normal. No fracture. There is mild osteoarthritis of medial and patellofe moral compartments characterized by tiny marginal osteophytes. No joint space narrowing. No knee join t effusion. IMPRESSION: 1. Mild left knee osteoarthritis. Reviewed, dictated and finalized at location A. 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
--- NOTE | ~2021-04-26 | XR_ITS ---
EXAMINATION: XR chest 1V portable DATE: 04/26/2021 16:16 INDICATION: Hand and knee numbness. TECHNIQUE: A single frontal view of the chest was obtained. COMPARISON: Chest single view 11/03/2019, CT abdomen 04/25/2020 FINDINGS: The chest demonstrates clear lungs without pneumonia, pleural effusion, or pneumothorax. Th e heart size is normal. IMPRESSION: 1. No acute cardiopulmonary disease. Reviewed, dictated and finalized at location A. GY MEMBER
--- NOTE | ~2021-04-26 | MR_ITS ---
EXAMINATION: MR brain/brain stem wo/w con DATE: 04/27/2021 09:19 INDICATION: Left-sided numbness. TECHNIQUE: Magnetic resonance imaging (MRI) of the brain and brainstem was performed without and with 15 mL MultiHance intravenous contrast. Sequences included sagittal and axial T1-weighted FSE, axial diffusion-weighted FS EPI, axial T2*-weighted GRE, axial T2-weighted FLAIR Propeller, and axial T2-we ighted Propeller. Postcontrast sequences included axial, sagittal, and coronal T1-weighted FSE. Appar ent diffusion coefficient (ADC) maps were created. COMPARISON: Head CT 04/26/2021 FINDINGS: There is an acute infarct in right thalamus. There are scattered areas of nonspecific incre ased T2-weighted signal intensity in the cerebral white matter. There is no intracranial hemorrhage o r abnormal mass lesion. The ventricles are normal in size. There is mucosal thickening in the paranas al sinuses. The orbits are normal. There is a trace right mastoid effusion. IMPRESSION: 1. Acute infarct in right thalamus. 2. Mild nonspecific cerebral white matter disease, which likely represents chronic small vessel ische jeff disease. Reviewed, dictated and finalized at location A. ICE TECH/WELDER IMPRESSION: 1. Acute infarct in right thalamus. 2. 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
--- NOTE | 2021-04-26 15:59 | ECG_ITS ---
Measurements Intervals [place] Rate: 77 P: 40 IN: 169 QRS: 4 QRSD: 92 T: 13 QT: 357 QTc: 406 Interpretive Statements SINUS RHYTHM INCOMPLETE RIGHT BUNDLE BRANCH BLOCK BASELINE ARTIFACT- II, III, AVR, AVF, V1-V6 BORDERLINE ECG Electronically Signed On 04-26-2021 17:09:54 LEAD NITRATE PROCESSOR by Jose De Jesus Gould D.O.
[2021-04-26 16:22] LABS: Basophils Absolute Auto 0.1 K/mm3 (0.0-0.1); Basophils Percent Auto 0.8 % (0.2-1.2); Eosinophils Absolute Auto 0.3 K/mm3 (0-0.3); Hematocrit 40.3 % (42.0-52.0); Immature Granulocyte Absolute 0.02 K/mm3 (0.00-0.031); Immature Granulocyte Percent A 0.2 % (0-0.5); Lymphocytes Absolute Auto 1.76 K/mm3 (0.9-3.2); Lymphocytes Percent Auto 21.1 % (18.3-44.2); Mean Corpuscular HGB Conc 34.7 g/dl (32-36); Mean Corpuscular Hemoglobin 30.5 pg (26-34); Mean Corpuscular Volume 87.8 fl (80-100); Mean Platelet Volume 8.4 fl (7.4-10.4); Monocytes Absolute Auto 0.7 K/mm3 (0.1-0.6); Monocytes Percent Auto 8.6 % (2.6-8.5); Neutrophils Absolute Auto 5.5 K/mm3 (1.3-6.7); Neutrophils Percent Auto 66.3 % (45.5-73.1); Platelet Count Result 287 k/mm3 (150-375); Red Blood Count 4.59 M/mm3 (4.6-6.20); Red Cell Distribution Width 12.6 % (11.5-14.5); White Blood Count 8.3 K/mm3 (4.5-10.0)
--- NOTE | 2021-04-26 16:31 | ED.GENADULT ---
HPI - General Adult General Chief complaint: Suspected CVA Stated complaint: left side numbness since yesterday Time Seen by Provider: 04/26/21 16:05 Source: patient History of Present Illness HPI narrative: Patient is a 75 y/o male complaining of left side numbness he notice yesterday morning when he woke up. He states that he was fine when he went to sleep around 11:00 PM 2 days ago (04/24/21). There is no known alleviating or exacerbating factor. He has not difficulty with speech. He noticed some left knee weakness today. However, he is able to walk. Related Data Allergies Allergy/AdvReac Type Severity Reaction Status Date / Time cephalexin AdvReac Unknown Diarrhea Verified 04/26/21 19:16 Review of Systems Constitutional: Constitutional: Denies chills, Denies fever(s), Denies headache(s) and Denies weakness Eyes: Eyes: Denies blurry vision ENT: Denies headache(s) and Denies neck pain Cardiovascular: Cardiovascular: Denies chest pain and Denies dyspnea Respiratory: Respiratory: Denies cough and Denies dyspnea Gastrointestinal: Gastrointestinal: Denies abdominal pain, Denies diarrhea, Denies nausea and Denies vomiting Genitourinary: Genitourinary: Denies hematuria and Denies dysuria Musculoskeletal: Musculoskeletal: Denies back pain and Denies neck pain Neurologic: Denies headache(s), Reports paresthesias and Reports weakness PMFSH Past Medical History Medical History (Updated 04/26/21 @ 23:30 by Pia Rudd MD) Erectile dysfunction Hepatocellular carcinoma determined by biopsy of liver HLD (hyperlipidemia) HTN (hypertension) Lumbar post-laminectomy syndrome Type 2 diabetes mellitus (Unknown) Surgical History Surgical History (Updated 04/26/21 @ 21:03 by Stephanie Raymundo NP) H/O laminectomy Hx laparoscopic cholecystectomy Subcutaneous mass of back Family History Family History Father Family history of malignant neoplasm of bone, Onset Age: 76 Mother Family history of malignant neoplasm of breast in first degree relative, Onset Age: 68 Sibling Benign brain tumor Social History Social History (Updated 04/26/21 @ 21:05 by Stephanie Raymundo NP) Social History: The patient lives with his and has 4 children. 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 Patient's lifelong nonsmoker does not use any alcohol marijuana or illicit drugs. Smoking end date: 05/23/99 Alcohol intake: current Drinks per week: 2 Alcohol use details: WINE Substance use: never Gender identity (if verbalized by the patient): Male Spiritual care concerns: No Exam Const: General: no acute distress and well developed Orientation/consciousness: oriented to person, oriented to place, oriented to time and patient oriented x3 HENMT: Head: normocephalic Ears: external ears normal General nose exam: Normal external nose present Eyes: General: appearance normal, both eyes and all related structures Conjunctivae: conjunctivae normal Neck: Neck: normal visual inspection and full ROM Chest: Chest palpation & inspection: normal inspection of the chest and no tenderness Resp: Effort & Inspection: normal respiratory effort Auscultation: clear to auscultation bilaterally Cardio: Rate: regular rate Rhythm: regular rhythm GI: GI Palp: No abdominal tenderness and Yes Soft to palpation Skin: General skin exam: normal color and turgor normal Neuro: General: oriented to person, oriented to place, oriented to time and patient oriented x3 Cognition (Neuro): normal cognition Extrem: General: normal to inspection, full ROM and no pedal edema Psych: Appearance: grossly normal Mental Status: mental status grossly normal Affect: normal affect Course Consultations Consultation #1: Discussed with LADONNA Brown, who agrees to admit. Date: 04/26/21 Time: 18:22 Vital Signs Vital signs: Vital Signs Temperature 36.2 C L 04/26/21 15:56 Pulse Rate 77
[2021-04-26 16:37] LABS: INR 0.9; Prothrombin Time 11.7 Seconds (11.1-14.7)
[2021-04-26 16:44] LABS: Troponin I < 0.012 ng/mL (0.000-0.034)
[2021-04-26 16:55] LABS: Alanine Aminotransferase 16 U/L (4-50); Albumin Level 4.3 g/dL (3.5-5.1); Alkaline Phosphatase 62 U/L (38-126); Anion Gap 9 mmol/L (8-16); Aspartate Amino Transferase 26 U/L (17-59); Bilirubin,Total 0.4 mg/dL (0.2-1.3); Blood Urea Nitrogen 16 mg/dL (9-20); Calcium 8.7 mg/dL (8.4-10.2); Carbon Dioxide 25 mmol/L (22-30); Chloride 101 mmol/L (98-107); Estimated CRCL calculation 55 ml/min; Estimated Glomerular Filt Rate > 60; Glucose 107 mg/dL (65-110); Potassium 4.2 mmol/L (3.4-5.0); Sodium 135 mmol/L (137-145)
--- NOTE | 2021-04-26 20:53 | PM.IMHP ---
H&P: HPI History of Present Illness Date/Time: 04/26/21 20:53 this is a 75-year-old male patient has a history of diabetes type 2. The patient came to the emergency room because he started having numbness and tingling to his left hand yesterday morning when he woke up. The patient's last known normal was around 11:00 p.m. 2 days. The patient stated that he was doing something in the ER today and his left knee felt like it was going out. He stated that he was just feeling weak on his left side. He has no prior history of TIAs or CVAs. He does not take a daily aspirin. Head neck CTA was read as normal brain. No aneurysm and significant intracranial arterial stenosis. 0% stenosis in the proximal internal carotid arteries relative to normal distal artery lumen diameters. Chest x-ray read as no acute cardiopulmonary disease. The patient is being admitted to observation on 04/26/2020. Chief Complaint: Left knee weakness Review of Systems Review of Systems: All systems reviewed & are unremarkable except as noted in HPI and below Constitutional: Constitutional: Reports as per HPI and Reports no additional constitutional complaints Eyes: Eyes: Reports as per HPI and Reports no additional eye complaints ENT: Reports system reviewed and no additional complaints, except as documented and Reports Normal hearing present Cardiovascular: Cardiovascular: Reports no additional cardiovascular complaints Respiratory: Respiratory: Reports no additional respiratory complaints and Reports no additional respiratory complaints Gastrointestinal: Gastrointestinal: Reports as per HPI and Reports no additional gastrointestinal complaints Musculoskeletal: Musculoskeletal: Reports no additional musculoskeletal complaints Integumentary/Breasts: Skin/Breast: Reports system reviewed and no additional complaints, except as docu and Reports as per HPI Neurologic: Reports system reviewed and no additional complaints, except as documented, Reports as per HPI and Reports Normal hearing present Psychiatric: Psychiatric: Reports no additional psychiatric complaints and Reports as per HPI Endocrine: Endocrine: Reports no additional endocrine complaints Hematologic/Lymphatic: Hematologic/Lymphatic: Reports no additional hematologic/lymphatic complaints Allergic/Immunologic: Allergic/Immunologic: Reports no additional allergic/immunologic complaints [facility] Past Medical History Medical History (Updated 04/26/21 @ 21:09 by Stephanie Raymundo NP) Erectile dysfunction Hepatocellular carcinoma determined by biopsy of liver HLD (hyperlipidemia) HTN (hypertension) Lumbar post-laminectomy syndrome Type 2 diabetes mellitus (Unknown) Surgical History Surgical History (Updated 04/26/21 @ 21:03 by Stephanie Raymundo NP) H/O laminectomy Hx laparoscopic cholecystectomy Subcutaneous mass of back Family History Family History Father Family history of malignant neoplasm of bone, Onset Age: 76 Mother Family history of malignant neoplasm of breast in first degree relative, Onset Age: 68 Sibling Benign brain tumor Social History Social History (Updated 04/26/21 @ 21:05 by Stephanie Raymundo NP) Social History: The patient lives with his and has 4 children. 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 Patient's lifelong nonsmoker does not use any alcohol marijuana or illicit drugs. Smoking end date: 05/23/99 Alcohol intake: current Drinks per week: 2 Alcohol use details: WINE Substance use: never Gender identity (if verbalized by the patient): Male Spiritual care concerns: No Meds Home Medications and Allergies Home Medications Medication Instructions Recorded Confirmed Type pen needle, diabetic 30 gauge x #100 each 02/26/20 03/17/21 Rx 5/16 lancets #100 ea 06/30/20 03/17/21 Rx blood sugar diagnostic #100 ea 07/03/20 03/17/21 Rx blood-glucose meter #1 ea 07/03/2002/21
[2021-04-26] MEDS: ATORVASTATIN 20 MG TABLET PO (22:22)
[2021-04-26] MEDS: LOSARTAN POTASSIUM 25 MG TABLET PO (22:22)
[2021-04-26 22:23] LABS: Glucose Point of Care 100 mg/dl (65-105)
[2021-04-26] MEDS: INSULIN GLARGINE (*BKC) 100 UNITS/ML 16 UNITS SUB-Q (23:56)
[2021-04-27] VITALS (15 sets, daily range): BP systolic 147–162; BP diastolic 67–80; PULSE 60–84; RESP 17–19; TEMP 36–36.6; O2SAT 93–98; BMI 27.4
--- NOTE | 2021-04-27 04:32 | ADMGEN ---
This patient, Jermain Scanlon, was admitted to Medical Room 345-01. Patient/family oriented to hospital policies and general routines including ID bracelet, bed and alarms, visiting hours, pain management, procedures, bathroom and other care routines, personal items, smoking policy, room service/diet, and visiting hours. Information on how to activate the Rapid Response Team has been discussed. Patient/Family are encouraged to report perceived risks to care and to ask questions if they do not understand what they are told or what they should do.
[2021-04-27 04:54] LABS: Glucose Point of Care 131 mg/dl (65-105)
--- NOTE | 2021-04-27 06:00 | ECHO_ITS ---
Patient Info Name: Jermain Scanlon Age: 75 years : 1945 Gender: Male Ht: 68 in Wt: 174 lbs BSA: 1.96 m2 HR: 69 bpm BP: 147 / 67 mmHg Technical Quality: Good Exam Date: 04/27/2021 10:30 AM Exam Location: [facility] Patient Status: Outpatient Admit Date: 04/26/2021 Staff Ordering Physician: Pia Rudd MD Gear Changer: Katarina Dickson RDCS Attending Provider: Livia Cole MD Referring Physician: Tobin CAMPOS; Exam Type: CA echo doppler color flow Study Info Indications - TIA Complete two-dimensional, color flow and Doppler transthoracic echocardiogram is performed. Summary 1. Complete two-dimensional, color flow and Doppler transthoracic echocardiogram is performed. 2. Left ventricular chamber dimension is normal. 3. Left ventricular systolic function is normal, estimated at 60-65%. 4. The left ventricular diastolic function is grade I diastolic dysfunction. 5. E/e' 11 is mildly elevated. 6. Left atrial chamber dimension is mildly enlarged. 7. There is mild aortic valve sclerosis. 8. The mitral valve has mildly calcified annulus. 9. There is trace tricuspid valve regurgitation. 10. No pulmonary hypertension, estimated pulmonary arterial systolic pressure is 34 mmHg. Left Ventricle E/e' 11 is mildly elevated. Left ventricular chamber dimension is normal. Left ventricular systolic function is normal, estimated at 60-65%. The left ventricular diastolic function is grade I diastolic dysfunction. Right Ventricle Right ventricular chamber dimension is normal. Right ventricular systolic function is normal. Left Atria Left atrial chamber dimension is mildly enlarged. Right Atria Right atrial chamber dimension is normal. Aortic Valve The aortic valve is trileaflet. There is mild aortic valve sclerosis. There is no aortic valve stenosis. There is no aortic valve regurgitation. Pulmonic Valve There is no pulmonic regurgitation. Mitral Valve The mitral valve has mildly calcified annulus. There is no mitral valve stenosis. There is no mitral valve regurgitation. Tricuspid Valve There is trace tricuspid valve regurgitation. No pulmonary hypertension, estimated pulmonary arterial systolic pressure is 34 mmHg. Pericardium/Pleural There is no pericardial effusion. Inferior Vena Cava Normal inferior vena cava with >50% collapse upon inspiration consistent with normal right atrial pressure, 5 mmHg. Aorta The aortic root size at the sinus of Valsalva is normal. Left Ventricular Outflow Tract Name Value Normal LVOT 2D LVOT Diameter 2.0 cm LVOT Doppler LVOT Peak Gradient 4 mmHg LVOT Mean Gradient 2 mmHg LVOT VTI 26 cm LVOT VTI/AV VTI Ratio 0.9 LVOT Stroke Volume 83 ml LVOT CO 5.5 l/min LVOT CI 2.8 l/min/m2 Pulmonic Valve Name Value Norm
[2021-04-27 06:03] LABS: Basophils Absolute Auto 0.1 K/mm3 (0.0-0.1); Eosinophils Absolute Auto 0.3 K/mm3 (0-0.3); Eosinophils Percent Auto 4.3 % (0-4.4); Hematocrit 41.1 % (42.0-52.0); Hemoglobin 14.1 g/dL (14.0-18.0); Immature Granulocyte Absolute 0.02 K/mm3 (0.00-0.031); Immature Granulocyte Percent A 0.3 % (0-0.5); Lymphocytes Absolute Auto 1.86 K/mm3 (0.9-3.2); Mean Corpuscular HGB Conc 34.3 g/dl (32-36); Mean Corpuscular Hemoglobin 29.7 pg (26-34); Mean Corpuscular Volume 86.5 fl (80-100); Mean Platelet Volume 8.5 fl (7.4-10.4); Monocytes Absolute Auto 0.7 K/mm3 (0.1-0.6); Monocytes Percent Auto 9.7 % (2.6-8.5); Neutrophils Percent Auto 57.7 % (45.5-73.1); Platelet Count Result 307 k/mm3 (150-375); Red Blood Count 4.75 M/mm3 (4.6-6.20); Red Cell Distribution Width 12.1 % (11.5-14.5); White Blood Count 6.9 K/mm3 (4.5-10.0)
--- NOTE | 2021-04-27 06:05 | PCDIET ---
CONTACTED DR. CRUMP 0600 FOR PT CONSULT PUT IN BY MARCELO 04/26. DR STATED HE WOULD BE IN TO SEE PT
[2021-04-27 06:12] LABS: Lactic Acid Reflex 0.8 mmol/L (0.7-2.1)
[2021-04-27 06:15] LABS: Alanine Aminotransferase 14 U/L (4-50); Alkaline Phosphatase 66 U/L (38-126); Anion Gap 7 mmol/L (8-16); Aspartate Amino Transferase 21 U/L (17-59); Bilirubin,Total 0.3 mg/dL (0.2-1.3); Blood Urea Nitrogen 16 mg/dL (9-20); Calcium 8.6 mg/dL (8.4-10.2); Carbon Dioxide 27 mmol/L (22-30); Chloride 99 mmol/L (98-107); Estimated CRCL calculation 61 ml/min; Estimated Glomerular Filt Rate > 60; Glucose 128 mg/dL (65-110); Lactate Dehydrogenase 329 U/L (313-618); Lipase 52 U/L (23-300); Magnesium 1.8 mg/dL (1.6-2.3); Potassium 3.8 mmol/L (3.4-5.0); Sodium 133 mmol/L (137-145)
[2021-04-27 07:49] LABS: Glucose Point of Care 129 mg/dl (65-105)
[2021-04-27 07:56] LABS: Free T4 Free Thyroxine Reflex 0.92 ng/dL (0.78-2.19)
[2021-04-27] MEDS: metFORMIN HCL 500 MG TABLET 1000 MG PO (08:13)
[2021-04-27] MEDS: ASPIRIN 81 MG ENTERIC TABLET PO (08:13)
--- NOTE | 2021-04-27 11:18 | WPDNEUROPN ---
Progress Note: A&P Additional Plan 1. Right thalamic acute infarct with negative evaluation for the large vessel disease needs to be treated for with aspirin, antihypertensive medication and anticholesterol medication if necessary Time Spent With Patient Time with patient: 25 - 35 minutes Subjective Date/time seen: 04/27/21 11:18 75 years old has been admitted to the hospital through the emergency room for the complaints of tingling and numbness of his left hand and giving out weakness of left lower extremity at the knee initial CTA of the head and neck was normal without aneurysm or any extra or intracranial disease chest x-ray was normal as well, patient does have ongoing history of 1. Type 2 diabetes mellitus 2. 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 Hypertension 4. Hepatocellular carcinoma documented by the biopsy of liver and has undergone laparoscopic cholecystectomy as well Review of Systems Review of Systems: All systems reviewed & are unremarkable except as noted in HPI and below Exam Const: General: cooperative, healthy appearing, comfortable and no acute distress Nutritional Appearance: average body habitus and well nourished Orientation/consciousness: oriented to person, oriented to place and oriented to time Limitations: no limitations HENMT: Head: normal to inspection Ears: hearing grossly normal bilaterally General nose exam: Normal external nose present Face and sinus: normal facial exam Mouth: Yes Normal oral and palatal mucosa present Eyes: General: appearance normal, both eyes and all related structures Visual Parada: normal visual parada by confrontation Alignment and Position: alignment normal Periorbital: periorbital findings normal Eyelids: eyelids normal Conjunctivae: conjunctivae normal Sclera: sclerae normal Cornea: corneas normal Pupils: Equal, round and reactive pupils present EOM: EOMs intact bilaterally Neck: Neck: normal visual inspection, full ROM and no lymphadenopathy Carotids: normal carotid upstroke Lymphatic: no lymphadenopathy noted Resp: Effort & Inspection: normal respiratory effort and able to speak in complete sentences Auscultation: clear to auscultation bilaterally Cardio: Jugular venous distension: no JVD Rate: regular rate Rhythm: regular rhythm Neuro: General: oriented to person, oriented to place and oriented to time Cranial nerves: Yes CN's II-XII intact bilaterally Cognition (Neuro): normal cognition Speech: normal speech Motor exam (neuro): Pronator motor function not present, No tremor noted and Normal motor muscle tone present throughout Sensory Exam: Sensory deficit (Neuro) Deep tendon reflexes (DTR's): Right triceps reflex intensity grade: 1+, Left triceps reflex intensity grade: 1+, Rt Biceps (C5, C6): 1+, Left biceps reflex intensity grade: 1+, Right brachioradialis reflex intensity grade: 1+, Left brachioradialis reflex intensity grade: 1+, Right patellar reflex intensity grade: 1+, Left patellar reflex intensity grade: 1+, Right ankle reflex intensity grade: 1+ and Left ankle reflex intensity grade: 1+ Plantar Reflex Responses: downgoing: right and left Coordination: [id number] test normal Objective Data Vital Signs Vital Signs: Vital Signs - 24 hr 04/26/21 15:56 04/26/21 16:06 04/26/21 16:07 Temperature 36.2 C L Pulse Rate 77 79 78 Respiratory Rate 18 16 15 Blood Pressure 174/81 H 177/89 H 177/89 H Pulse Oximetry 98 04/26/21 16:15 04/26/21 16:30 04/26/21 17:00 Temperature Pulse Rate 79 74 71 Respiratory Rate 19 18 17 Blood Pressure Pulse Oximetry 99 96 04/26/21 19:16 04/26/21 20:42 04/26/21 20:44 Temperature Pulse Rate 80 74 68 Respiratory Rate 16 19 14 Blood Pressure 168/74 H Pulse Oximetry 100 97 98 04/26/21 20:45 04/26/21 20:46 04/26/21 20:47 Temperature Pulse Rate 65 67 65 Respiratory Rate 17 15 Blood Pressure 175/101 H Pulse Oximetry 92 96 96 04/26/21 20:50 04/26/21
[2021-04-27 11:34] LABS: Glucose Point of Care 124 mg/dl (65-105)
--- NOTE | 2021-04-27 13:25 | PM.IMPN ---
Progress Note: A&P Assessment and Plan (1) Weakness: Code(s): R53.1 - Weakness Status: Acute Assessment and Plan: The patient does not appear to have any significant neurological deficits. The patient stated when he walks his left knee gives out, which is likely related to knee arthritis, which was conformed with an x-ray of his left knee. Patient i was evaluated by Neurology. echo reported normal systolic function. MRI reveals acute right thalamic stroke. Carotid Dopplers were was only significant for mild bilateral start oral status of the internal carotid arteries. (2) HTN (hypertension): Qualifiers: Hypertension type: essential hypertension Qualified Code(s): I10 - Essential (primary) hypertension Code(s): I10 - Essential (primary) hypertension Status: Acute Assessment and Plan: Currently blood pressure is uncontrolled. BP measured at 147/67-162/80. Continue with losartan. 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 Accu-Chek in the 124-131 range. Check accu-Cheks AC and HS. Continue with glargine Subjective Date/time seen: 75-year-old male patient has a history of diabetes type 2 admitted with numbness and tingling to his left hand yesterday morning when he woke up. He does not take a daily aspirin. Head neck CTA was read as normal brain. MRI reveals right thalamic ischemic stroke. 04/27/21 13:25 S: -Examined at the bedside. He reports persistent numbness and tingling of his left hand. No other complaint. There is no muscular weakness. Review of Systems Review of Systems: All systems reviewed & are unremarkable except as noted in HPI and below Constitutional: Constitutional: Reports as per HPI and Reports no additional constitutional complaints Eyes: Eyes: Reports as per HPI and Reports no additional eye complaints ENT: Reports system reviewed and no additional complaints, except as documented and Reports Normal hearing present Cardiovascular: Cardiovascular: Reports no additional cardiovascular complaints Respiratory: Respiratory: Reports no additional respiratory complaints and Reports no additional respiratory complaints Gastrointestinal: Gastrointestinal: Reports as per HPI and Reports no additional gastrointestinal complaints Musculoskeletal: Musculoskeletal: Reports no additional musculoskeletal complaints Integumentary/Breasts: Skin/Breast: Reports system reviewed and no additional complaints, except as docu and Reports as per HPI Neurologic: Reports system reviewed and no additional complaints, except as documented, Reports as per HPI and Reports Normal hearing present Psychiatric: Psychiatric: Reports no additional psychiatric complaints and Reports as per HPI Endocrine: Endocrine: Reports no additional endocrine complaints Hematologic/Lymphatic: Hematologic/Lymphatic: Reports no additional hematologic/lymphatic complaints Allergic/Immunologic: Allergic/Immunologic: Reports no additional allergic/immunologic complaints Exam Const: General: cooperative, healthy appearing, comfortable, no acute distress, well developed, alert, awake and Physically active Nutritional Appearance: average body habitus and well nourished Orientation/consciousness: oriented to person,
--- NOTE | 2021-04-27 13:33 | PM.DS ---
DS: Admitting Diagnosis Discharge Date 04/27/2021 Admitting Diagnosis (1) Acute thalamic stroke. (2) HTN (hypertension): (3) HLD (hyperlipidemia): (4) Type 2 diabetes mellitus: DS: Discharge Diagnosis Discharge Diagnosis (1) Thalamic stroke: Code(s): I63.9 - Cerebral infarction, unspecified Status: Acute Assessment and Plan: Head CT shows normal brain no aneurysm or significant intracranial arterial stenosis. there is zero % stenosis of the proximal internal carotid arteries relative to normal distal artery lumen diameters (NASCET criteria). Acute infarct in right thalamus. Mild nonspecific cerebral white matter disease, which likely represents chronic small vessel ischemic disease. Brain MRI: 1. Acute infarct in right thalamus. 2. Mild nonspecific cerebral white matter disease, which likely represents chronic small vessel ischemic disease. (2) Weakness: Code(s): R53.1 - Weakness Status: Acute Assessment and Plan: The patient does not appear to have any significant neurological deficits. The patient stated when he walks his left knee gives out, which is likely related to knee arthritis, which was conformed with an x-ray of his left knee. Patient i was evaluated by Neurology. echo reported normal systolic function. MRI reveals acute right thalamic stroke. Carotid Dopplers were was only significant for mild bilateral start oral status of the internal carotid arteries. (3) HTN (hypertension): Qualifiers: Hypertension type: essential hypertension Qualified Code(s): I10 - Essential (primary) hypertension Code(s): I10 - Essential (primary) hypertension Status: Acute Assessment and Plan: Currently blood pressure is uncontrolled. BP measured at 147/67-162/80. Continue with losartan. 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 Accu-Chek in the 124-131 range. Check accu-Cheks AC and HS. Continue with glargine DS: Summary Hospital Course Reason for hospitalization: Left knee weakness. Hospital Course: Please refer to admission H& P. Briefly, this is a 75-year-old male patient has a history of diabetes type 2. The patient came to the emergency room because he started having numbness and tingling to his left hand yesterday morning when he woke up. The patient's last known normal was around 11:00 p.m. 2 days. The patient stated that he was doing something in the ER today and his left knee felt like it was going out. He stated that he was just feeling weak on his left side. He has no prior history of TIAs or CVAs. He does not take a daily aspirin. Head neck CTA was read as normal brain. No aneurysm and significant intracranial arterial stenosis. 0% stenosis in the proximal internal carotid arteries relative to normal distal artery lumen diameters. Chest x-ray read as no acute cardiopulmonary disease. The patient was being admitted to observation on 04/26/2020. Head CT was normal. MRI revealed a right thalamic acute infarct. Patient was evaluated by Neurology. Plan for aspirin and Plavix for 3 weeks, continue antihypertensive medication and identify anticholesterol regimen. On physical exam the patient was stable. He did not appear to have a significant neurological deficits. Carotid Dop
== END 2021-04-27 16:38 | disposition home or self-care (01) ==
LOC: ANHED 19:26 → ANH3MEDSUR 19:48 → ANH3MED 04-27 04:10
PROVIDERS: Family Medicine; Nurse Practitioner; Admitting Provider Internal Medicine; Emergency Provider Emergency Medicine; PCP Internal Medicine; Visit Provider Internal Medicine
DX: I63.9 Cerebral infarction, unspecified (principal); M17.12 Unilateral primary osteoarthritis, left knee; I10 Essential (primary) hypertension; E78.5 Hyperlipidemia, unspecified; E11.9 Type 2 diabetes mellitus without complications; Z79.4 Long term (current) use of insulin
CPT/HCPCS: 36415; 70496; 70498; 70553; 71045; 73560; 80053; 82948; 83605; 83615; 83690; 83735; 84439; 84443; 84480; 84484; 85025; 85610; 85730; 93005; 93306; 93880; 99285; A9270; A9577; G0378; J1815; Q9967

== ENCOUNTER 2021-06-17 10:51 | Outpatient (CLI) | payer BC, SELFPAY ==
[2021-06-17 12:52] LABS: Hemoglobin A1C 6.5 % (<5.7)
[2021-06-24 01:29] LABS: Alpha Fetoprotein Tumor Marker 8.5 ng/mL (<6.1)
== END 2021-06-17 10:52 | disposition home or self-care (01) ==
PROVIDERS: PCP Internal Medicine; Visit Provider Internal Medicine
DX: E11.9 Type 2 diabetes mellitus without complications (principal); Z79.4 Long term (current) use of insulin; E03.9 Hypothyroidism, unspecified; C22.0 Liver cell carcinoma
CPT/HCPCS: 36415; 82105; 83036; 84443

== ENCOUNTER 2022-02-18 01:57 | Day surgery (SDC) | payer BC, SELFPAY ==
[2022-01-29 10:50] VITALS: BMI 25.9
[2022-01-29 14:41] VITALS: BMI 25.9
[2022-02-18 10:19] VITALS: BP 137/73; PULSE 70; RESP 18; TEMP 36.1; O2SAT 100; BMI 26.7
[2022-02-18] MEDS: LACTATED RINGERS 1,000 ML 150 ML IV CONT (10:29)
[2022-02-18 10:33] LABS: Glucose Point of Care 114 mg/dl (65-105)
--- NOTE | 2022-02-18 10:42 | PM.HPGS ---
History of Present Illness History of Present Illness Consent: Risks, benefits, and alternatives have been discussed and questions answered. Patient agrees to proceed with procedure. Chief complaint: neoplasm screening Narrative: Jermain Scanlon is a 76 year old male Referred for colon cancer screening. He has had resection of hepatocellular carcinoma. He is being considered for liver transplant. Review of Systems Review of Systems: All systems reviewed & are unremarkable except as noted in HPI and below PMFSH Past Medical History Medical History Erectile dysfunction Hepatocellular carcinoma determined by biopsy of liver HLD (hyperlipidemia) HTN (hypertension) Lumbar post-laminectomy syndrome Major depressive disorder with single episode Thalamic stroke Type 2 diabetes mellitus (Unknown) Surgical History Surgical History H/O laminectomy H/O resection of liver 07/2020 Hx laparoscopic cholecystectomy Subcutaneous mass of back Family History Family History Father Family history of malignant neoplasm of bone, Onset Age: 76 Mother Family history of malignant neoplasm of breast in first degree relative, Onset Age: 68 Sibling Benign brain tumor Social History Social History Social History: The patient lives with his and has 4 children. 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 Patient's lifelong nonsmoker does not use any alcohol marijuana or illicit drugs. Smoking packs per day: 1 Smoking cigarettes per day: 20.0 Years smoked: 25 Smoking pack-years: 25.00 Smoking status: Never smoker Tobacco type: cigarettes Smoking end date: 05/23/99 Alcohol intake: current Drinks per week: 2 Alcohol use details: WINE Substance use: never Substance use type: does not use Living arrangements: with family Gender identity (if verbalized by the patient): Male Spiritual care concerns: No Meds Home Medications and Allergies Home Medications Medication Instructions Recorded Confirmed Type lancets (OneTouch UltraSoft #100 ea 06/30/20 06/16/21 Rx Lancets) blood sugar diagnostic (Contour #100 ea 07/03/20 02/18/22 Rx Next Test Strips) blood-glucose meter (Contour Next #1 ea 07/03/20 02/18/22 Rx Meter) flash glucose scanning reader #1 ea 04/13/21 02/18/22 Rx (FreeStyle Daniele 14 Day [place]) flash glucose sensor (FreeStyle #1 ea 04/13/21 06/16/21 Rx Daniele 14 Day Sensor kit) pen needle, diabetic 30 gauge x #100 ea 05/06/21 06/16/21 Rx 5/16 atorvastatin 40 mg tablet 40 mg PO HS #90 tabs 06/18/21 01/29/22 Rx losartan 25 mg tablet 25 mg PO HS #90 tabs 06/18/21 01/29/22 Rx insulin glargine-yfgn 100 unit/mL 16 unit (0.16 mL) subcut QPM #15 mL 02/04/22 02/18/22 Rx (3 mL) subcutaneous pen (Semglee (insulin glargine-yfgn) Pen) metformin 500 mg tablet See Rx Instructions .Route 02/11/22 02/18/22 Rx .COMPLEX #360 tabs Allergies Allergy/AdvReac Type Severity Reaction Status Date / Time cephalexin AdvReac Unknown Diarrhea Verified 02/18/22 10:18 Vital Signs Vital Signs - 24 hr 02/18/22 10:19 Temperature 36.1 C L Pulse Rate 70 Respiratory Rate 18 Blood Pressure 137/73 Pulse Oximetry 100 Oxygen Delivery Room Air Exam Const: General: alert Orientation/consciousness: patient oriented x3 Resp: Auscultation: clear to auscultation bilaterally Cardio: Rhythm: regular rhythm GI: GI Palp: Yes Soft to palpation and No Tenderness to palpation present (GI) Neuro: General: patient oriented x3 Assessment and Plan Assessment and plan (1) Colon cancer screening: Code(s): Z12.11 - Encounter for screening for malignant neoplasm of colon Status: Acute Assessment and Plan: Colonoscopy with possible biopsy or polype
--- NOTE | 2022-02-18 11:08 | WPDANESEPPF ---
Anes - Initial Pre Proc Eval Procedure: Operation Date: 02/18/22 11:30 Proposed Procedures p Screening Colonoscopy - Darryl Blancas MD Date/Time: 02/18/22 11:08 Surgeon: Darryl Blancas MD Pre Op Diagnosis: neoplasm screening Patient Data Age: 76 Gender: M Height: 1.7 m Weight: 77.5 kg Last Vital Signs Temp 97 F L 02/18/22 10:19 Pulse 70 02/18/22 10:19 Resp 18 02/18/22 10:19 BP 137/73 02/18/22 10:19 Pulse Ox 100 02/18/22 10:19 O2 Del Method Room Air 02/18/22 10:19 Allergies Allergy/AdvReac Type Severity Reaction Status Date / Time cephalexin AdvReac Unknown Diarrhea Verified 02/18/22 10:18 Home Medications Medication Instructions Recorded Confirmed Type lancets (OneTouch UltraSoft #100 ea 06/30/20 06/16/21 Rx Lancets) blood sugar diagnostic (Contour #100 ea 07/03/20 02/18/22 Rx Next Test Strips) blood-glucose meter (Contour Next #1 ea 07/03/20 02/18/22 Rx Meter) flash glucose scanning reader #1 ea 04/13/21 02/18/22 Rx (FreeStyle Daniele 14 Day [place]) flash glucose sensor (FreeStyle #1 ea 04/13/21 06/16/21 Rx Daniele 14 Day Sensor kit) pen needle, diabetic 30 gauge x #100 ea 05/06/21 06/16/21 Rx 5/16 atorvastatin 40 mg tablet 40 mg PO HS #90 tabs 06/18/21 01/29/22 Rx losartan 25 mg tablet 25 mg PO HS #90 tabs 06/18/21 01/29/22 Rx insulin glargine-yfgn 100 unit/mL 16 unit (0.16 mL) subcut QPM #15 mL 02/04/22 02/18/22 Rx (3 mL) subcutaneous pen (Semglee (insulin glargine-yfgn) Pen) metformin 500 mg tablet See Rx Instructions .Route 02/11/22 02/18/22 Rx .COMPLEX #360 tabs Laboratory Tests 02/18/22 10:28 POC Capillary Glucose 114 mg/dl H mg/dl (65-105) Patient hx anesthesia problems: none Family hx anesthesia problems: none Results Review: All pre-operative results and documents have been reviewed as part of the pre-operative evaluation. [facility] Past Medical History Medical History Erectile dysfunction Hepatocellular carcinoma determined by biopsy of liver HLD (hyperlipidemia) HTN (hypertension) Lumbar post-laminectomy syndrome Major depressive disorder with single episode Thalamic stroke Type 2 diabetes mellitus (Unknown) Surgical History Surgical History H/O laminectomy H/O resection of liver 07/2020 Hx laparoscopic cholecystectomy Subcutaneous mass of back Family History Family History Father Family history of malignant neoplasm of bone, Onset Age: 76 Mother Family history of malignant neoplasm of breast in first degree relative, Onset Age: 68 Sibling Benign brain tumor Social History Social History Social History: The patient lives with his and has 4 children. 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 Patient's lifelong nonsmoker does not use any alcohol marijuana or illicit drugs. Smoking packs per day: 1 Smoking cigarettes per day: 20.0 Years smoked: 25 Smoking pack-years: 25.00 Smoking status: Never smoker Tobacco type: cigarettes Smoking end date: 05/23/99 Alcohol intake: current Drinks per week: 2 Alcohol use details: WINE Substance use: never Substance use type: does not use Living arrangements: with family Gender identity (if verbalized by the patient): Male Spiritual care concerns: No Anes - Eval Final PreProcedure Day of Procedure 02/18/22 11:08 Patient weight: normal Heart: regular rate and rhythm Lungs: clear to auscultation Airway: Mallampati scale class II Neurological: alert and oriented Last oral intake: >/= 8 hours ASA classification: III Emergent: no Anesthetic plan: proceed Anesthesia type and monitoring: general GIVS and standard monitoring Results Review: All pre-operative results and documents have been reviewed a
[2022-02-18 11:42] VITALS: BP 127/66; PULSE 65; RESP 16; O2SAT 97
== END 2022-02-18 12:20 | disposition home or self-care (01) ==
PROVIDERS: PCP Internal Medicine; Visit Provider Internal Medicine Gastroenterology
PROC: 0DJD8ZZ Inspection of Lower Intestinal Tract, Via Natural or Artificial Opening Endoscopic (ICD-10-PCS; CPT 45378; principal; 2022-02-18 11:30)
DX: Z12.11 Encounter for screening for malignant neoplasm of colon (principal); K57.30 Diverticulosis of large intestine without perforation or abscess without bleeding; Z79.890 Hormone replacement therapy; Z79.4 Long term (current) use of insulin; E78.5 Hyperlipidemia, unspecified; I10 Essential (primary) hypertension; E11.9 Type 2 diabetes mellitus without complications; Z86.718 Personal history of other venous thrombosis and embolism; Z90.49 Acquired absence of other specified parts of digestive tract; Z87.891 Personal history of nicotine dependence
CPT/HCPCS: 45378; 82948; J2704; J7120

== ENCOUNTER 2022-04-21 14:59 | Outpatient (CLI) | payer BC, SELFPAY ==
[2022-04-21 18:51] LABS: Basophils Absolute Auto 0.1 K/mm3 (0.0-0.1); Basophils Percent Auto 0.6 % (0.2-1.2); Eosinophils Absolute Auto 0.2 K/mm3 (0-0.3); Eosinophils Percent Auto 2.2 % (0-4.4); Hematocrit 42.3 % (42.0-52.0); Hemoglobin 14.4 g/dL (14.0-18.0); Immature Granulocyte Absolute 0.02 K/mm3 (0.00-0.031); Immature Granulocyte Percent A 0.2 % (0-0.5); Lymphocytes Absolute Auto 1.77 K/mm3 (0.9-3.2); Mean Corpuscular Hemoglobin 30.1 pg (26-34); Mean Corpuscular Volume 88.3 fl (80-100); Mean Platelet Volume 8.8 fl (7.4-10.4); Monocytes Absolute Auto 0.7 K/mm3 (0.1-0.6); Monocytes Percent Auto 7.6 % (2.6-8.5); Neutrophils Absolute Auto 6.1 K/mm3 (1.3-6.7); Neutrophils Percent Auto 69.4 % (45.5-73.1); Platelet Count Result 327 k/mm3 (150-375); Red Blood Count 4.79 M/mm3 (4.6-6.20); Red Cell Distribution Width 12.9 % (11.5-14.5); White Blood Count 8.8 K/mm3 (4.5-10.0)
[2022-04-21 18:53] LABS: Prothrombin Time 12.8 Seconds (11.1-14.7)
[2022-04-21 19:04] LABS: Alanine Aminotransferase 25 U/L (6-50); Albumin Level 4.6 g/dL (3.5-5.1); Alkaline Phosphatase 109 U/L (38-126); Anion Gap 7 mmol/L (8-16); Aspartate Amino Transferase 48 U/L (17-59); Bilirubin,Total 0.5 mg/dL (0.2-1.3); Blood Urea Nitrogen 12 mg/dL (9-20); Calcium 8.9 mg/dL (8.4-10.2); Carbon Dioxide 30 mmol/L (22-30); Chloride 100 mmol/L (98-107); Estimated Glomerular Filt Rate > 60; Glucose 109 mg/dL (65-110); Potassium 4.3 mmol/L (3.4-5.0); Sodium 137 mmol/L (137-145)
[2022-04-27 23:13] LABS: Alpha Fetoprotein Tumor Marker 2.7 ng/mL (<6.1)
== END 2022-04-21 15:00 | disposition home or self-care (01) ==
LOC: ANHGOSHLAB 15:04
PROVIDERS: PCP Internal Medicine
DX: C22.0 Liver cell carcinoma (principal)
CPT/HCPCS: 36415; 80053; 82105; 85025; 85610

== ENCOUNTER 2022-06-08 12:31 | Outpatient (CLI) | payer MEDICARE, SELFPAY ==
[2022-06-08 20:46] LABS: Prostate Specific Antigen 3.2 ng/mL (< OR = 4.0)
[2022-06-10 11:35] LABS: Hemoglobin A1C 6.8 % (<5.7)
== END 2022-06-08 12:32 | disposition home or self-care (01) ==
LOC: ANHGOSHLAB 12:33
PROVIDERS: PCP Internal Medicine; Visit Provider Internal Medicine
DX: E11.9 Type 2 diabetes mellitus without complications (principal); Z12.5 Encounter for screening for malignant neoplasm of prostate
CPT/HCPCS: 36415; 83036; 84153; G0103

== ENCOUNTER 2022-07-28 09:55 | Outpatient (CLI) | payer MEDICARE, SELFPAY ==
[2022-07-28 17:29] LABS: Prothrombin Time 12.7 Seconds (11.1-14.7)
[2022-07-28 18:38] LABS: Alanine Aminotransferase 22 U/L (6-50); Albumin Level 4.4 g/dL (3.5-5.1); Alkaline Phosphatase 99 U/L (38-126); Anion Gap 6 mmol/L (8-16); Aspartate Amino Transferase 30 U/L (17-59); Bilirubin,Total 0.6 mg/dL (0.2-1.3); Blood Urea Nitrogen 19 mg/dL (9-20); Calcium 8.8 mg/dL (8.4-10.2); Carbon Dioxide 30 mmol/L (22-30); Chloride 103 mmol/L (98-107); Estimated Glomerular Filt Rate > 60; Glucose 198 mg/dL (65-110); Potassium 4.7 mmol/L (3.4-5.0); Sodium 139 mmol/L (137-145)
[2022-08-04 15:28] LABS: Alpha Fetoprotein Tumor Marker 2.9 ng/mL (<6.1)
== END 2022-07-28 09:56 | disposition home or self-care (01) ==
LOC: ANHGOSHLAB 09:59
PROVIDERS: PCP Internal Medicine
DX: C22.0 Liver cell carcinoma (principal)
CPT/HCPCS: 36415; 80053; 82105; 85610

== ENCOUNTER 2023-03-10 09:33 | Outpatient (CLI) | payer MEDICARE, SELFPAY ==
[2023-03-10 18:42] LABS: Anion Gap 9 mmol/L (8-16); Blood Urea Nitrogen 17 mg/dL (9-20); Calcium 8.9 mg/dL (8.4-10.2); Carbon Dioxide 28 mmol/L (22-30); Chloride 100 mmol/L (98-107); Estimated Glomerular Filt Rate 59; Glucose 219 mg/dL (65-110); Potassium 4.8 mmol/L (3.4-5.0); Sodium 137 mmol/L (137-145)
[2023-03-11 08:15] LABS: Hemoglobin A1C 7.3 % (<5.7)
[2023-03-14 04:29] LABS: Apolipoprotein B 101 mg/dL (<90)
[2023-03-14 11:45] LABS: Testosterone Free 39.7 pg/mL (30.0-135.0); Testosterone Total 253 ng/dL (250-1100)
== END 2023-03-10 09:34 | disposition home or self-care (01) ==
PROVIDERS: PCP Internal Medicine; Visit Provider Internal Medicine
DX: E11.9 Type 2 diabetes mellitus without complications (principal); Z79.4 Long term (current) use of insulin; R53.83 Other fatigue
CPT/HCPCS: 36415; 80048; 82172; 83036; 84402; 84403

== ENCOUNTER 2024-02-16 11:42 | Outpatient (CLI) | payer MEDICARE, SELFPAY ==
[2024-02-16 14:50] LABS: Hematocrit 47.1 % (42.0-52.0); Mean Corpuscular HGB Conc 31.8 g/dl (32-36); Mean Corpuscular Hemoglobin 27.4 pg (26-34); Mean Corpuscular Volume 85.9 fl (80-100); Mean Platelet Volume 8.8 fl (7.4-10.4); Platelet Count Result 263 k/mm3 (150-375); Red Blood Count 5.48 M/mm3 (4.6-6.20); Red Cell Distribution Width 13.8 % (11.5-14.5); White Blood Count 4.2 K/mm3 (4.5-10.0)
[2024-02-16 15:35] LABS: Alanine Aminotransferase 13 U/L (6-50); Albumin Level 4.3 g/dL (3.5-5.1); Alkaline Phosphatase 78 U/L (38-126); Anion Gap 6 mmol/L (4-12); Aspartate Amino Transferase 47 U/L (17-59); Bilirubin,Total 0.6 mg/dL (0.2-1.3); Blood Urea Nitrogen 19 mg/dL (9-20); Calcium 8.7 mg/dL (8.4-10.2); Carbon Dioxide 30 mmol/L (22-30); Chloride 99 mmol/L (98-107); Estimated Glomerular Filt Rate 59; Glucose 165 mg/dL (65-110); Potassium 4.1 mmol/L (3.4-5.0); Sodium 135 mmol/L (137-145)
[2024-02-16 16:07] LABS: Prostate Specific Antigen 8.5 ng/mL (< OR = 4.0)
[2024-02-16 17:17] LABS: Hemoglobin A1C 8.3 % (<5.7)
[2024-02-21 15:04] LABS: Testosterone Free 122.3 pg/mL (30.0-135.0); Testosterone Total 562 ng/dL (250-1100)
== END 2024-02-16 11:43 | disposition home or self-care (01) ==
LOC: ANHGOSHLAB 11:44
PROVIDERS: PCP Internal Medicine; Visit Provider Nurse Practitioner
DX: E11.9 Type 2 diabetes mellitus without complications (principal); E29.1 Testicular hypofunction; Z79.890 Hormone replacement therapy; E16.2 Hypoglycemia, unspecified; I10 Essential (primary) hypertension; Z12.5 Encounter for screening for malignant neoplasm of prostate
CPT/HCPCS: 36415; 80053; 83036; 84153; 84402; 84403; 85027

== ENCOUNTER 2024-03-01 09:12 | Outpatient (CLI) | payer MEDICARE, SELFPAY ==
[2024-03-01 17:51] LABS: Creatinine Urine 85.3 mg/dL
[2024-03-01 17:56] LABS: MALB Creatinine Ratio 107.7 mg/g (0-30); Microalbumin Urine Random 91.9 mg/L (0-16.7)
[2024-03-01 18:19] LABS: Prostate Specific Antigen 7.5 ng/mL (< OR = 4.0)
== END 2024-03-01 09:13 | disposition home or self-care (01) ==
LOC: ANHGOSHLAB 09:14
PROVIDERS: PCP Internal Medicine; Visit Provider Internal Medicine
DX: R97.20 Elevated prostate specific antigen [PSA] (principal); E11.65 Type 2 diabetes mellitus with hyperglycemia
CPT/HCPCS: 36415; 82043; 84153

== ENCOUNTER 2024-03-09 10:14 | Outpatient (CLI) | payer MEDICARE, SELFPAY ==
[2024-03-12 08:02] LABS: Kit Draw Collected
== END 2024-03-09 10:15 | disposition home or self-care (01) ==
LOC: ANHGOSHLAB 10:15
PROVIDERS: PCP Internal Medicine; Visit Provider Internal Medicine
DX: Z76.89 Persons encountering health services in other specified circumstances (principal)
CPT/HCPCS: 36415

== ENCOUNTER 2024-06-20 14:40 | Outpatient (CLI) | payer MEDICARE, SELFPAY ==
--- NOTE | ~2024-06-20 | XR_ITS ---
EXAMINATION: XR chest 2V Exam Date/Time: 06/20/2024 14:44 HOMICIDE INVESTIGATOR HISTORY: R06.02 - Shortness of breath Comparison: 04/26/2021. RESULT: Lines, tubes, and devices: Surgical clips over the right upper quadrant and midline abdomen. Lungs and pleura: Senescent change, otherwise clear. Cardiomediastinal silhouette: Stable. Other: No acute osseous or upper abdominal finding. IMPRESSION: No acute cardiopulmonary process. Reviewed, dictated and finalized at location K. CIDE INVESTIGATOR
== END 2024-06-20 14:41 | disposition home or self-care (01) ==
LOC: GOSHIMG 14:42
PROVIDERS: PCP Internal Medicine; Visit Provider Clinical Nurse Specialist
DX: R06.02 Shortness of breath (principal)
CPT/HCPCS: 71046

== ENCOUNTER 2024-08-24 12:30 | Outpatient (RCR) | payer MEDICARE, SELFPAY ==
--- NOTE | 2024-08-21 15:57 | OPREHPOC ---
Outpatient Therapy Plan of Care This is a Multidisciplinary Plan of Care that may contain components documented by all disciplines (PT, OT, and ST.) PT Problem 1 PT Problem #1 Knowledge Deficit PT Goal 1 Goal / Goal Update Welcome with HEP Target Visit 4 PT Problem 2 PT Problem #2 Impaired Vestibular System PT Goal 1 Goal / Goal Update 1. Patient will demonstrate negative [place]-Halpike bilaterally 2. Patient will demonstrate independence with Estelle maneuver
--- NOTE | 2024-08-21 15:57 | PTOPEVAL1 ---
Assessment and note entered by Leonel Matos, PT Evaluation Information Assessment Status Evaluation ICD-10 Condition Codes (PT) BPPV H81.12 Onset 08/18/24 Subjective Information Reports that he woke up Tuesday morning with severe spinning and dizziness. He felt the room spinning around him when he looked down or rolled over. When he was turning over in bed he became significantly worse on what he believes was the right side. Denies recent head trauma but report that he is coming off of a sinus infection. Went through a liver transplant 1.5 years ago. Denies headaches or neck pain. Reported Pain Level Pain Score 0: Self Report Assessment PT Clinical Summary Patient presented with positive left sided Chani- Halpike this date and resultant nystagmus. Treated with Estelle maneuver x 3 to left side with symptom resolution. Patient has some residual nausea which was improved by conclusion of visit. Will follow up as needed and educate in Estelle maneuver during follow up visits. Plan of Care Interventions Electrical Stimulation,Neuro Re-education, Therapeutic Activities,Therapeutic Exercise PT Services Indicated Yes Treatment Frequency and 1x/week for 4 visits Duration These treatments will address the objective and functional deficits as defined above. The patient will be advanced safely and appropriately in order for the patient to progress towards his/her prior level of function. Additional exercises will be introduced and as well as a comprehensive home exercise program upon discharge, if needed, ?to ensure carryover of functional gains achieved in the clinic. This treatment plan has been reviewed and agreement upon by the patient.
--- NOTE | 2024-09-25 08:47 | PTOPDC ---
Assessment and note entered by Leonel Matos, PT Evaluation Information Assessment Status Discharge - Pt Not Present ICD-10 Condition Codes (PT) BPPV H81.12 Onset 08/18/24 Subjective Information Followed up with patient prior to his vacation the second week of August. He reported symptom resolution. Reports that he will call in if symptoms return following vacation. Assessment PT Clinical Summary Patient chart has been held for 1 month. No call received as patient would have called should symptoms return. Patient will be discharged at this time. Plan of Care PT Services Indicated Yes
== END 2024-09-25 10:26 | disposition home or self-care (01) ==
LOC: ANHGOSHPT 12:30
PROVIDERS: PCP Internal Medicine; Visit Provider Internal Medicine
DX: H81.12 Benign paroxysmal vertigo, left ear (principal)
CPT/HCPCS: 95992; 97112; 97161

== ENCOUNTER 2025-01-22 12:50 | Outpatient (CLI) | payer MEDICARE, SELFPAY ==
--- OUTSIDE RECORDS SUMMARY | 2025-01-22 13:01 | XMS_ITS | Encounter Summary ---
Author Organization [facility] Health Address [address] [place] [address] Care Team Providers Care Semiconductor Wafers Etcher Stripper Name Role Phone Jonathan Barboza DO Primary Care Provider Encounter Details Date Type Department Care Team (Late Contact Info) Description 11/14/2024 Lab Requisition [facility] - DermPath Lab [address] [place] [id number] Vanessa Figueroa MD [address] [facility] [address] [place] [address] Social History Tobacco Use Types Packs/Day Years Used Date Smoking Tobacco: Former Smokeless Tobacco: Never Sex and Gender Information Value Date Recorded Sex Assigned at Not on file Legal Sex Male 10:50 AM CDT Gender Identity Not on file Sexual Orientation Not on file documented as of this encounter Plan of Treatment Upcoming Encounters Date Type Department Care Team (Late Contact Info) Description 02/25/2025 10:30 AM CDT Office Visit [facility] - Dermatology [address] [place] [id number] documented as of this encounter Procedures Procedure Name Priority Date/Time Associated Diagnosis Comments DERMATOPATHOLOGY Routine 11/14/2024 11:1 4 AM CDT documented in this encounter Results * DERMATOPATHOLOGY (11/14/2024 11:14 AM CDT) Case Report Dermatopathology Report Case: [id number] Authorizing Provider: Vanessa Figueroa MD Collected: 11/14/2024 11:14 AM Ordering Location: [facility] - Received: 11/16/2024 08:00 AM DermPath Lab Pathologist: Yady Corona MD Specimens: A) - Skin, right crown B) - Skin, right crown post C) - Skin, right forearm D) - Skin, right forearm distal 1:39 PM T DERMATOPATHOLOGY LABORATORY Final Diagnosis Specimen A. SKIN, right crown: ACTINIC KERATOSIS, ERODED AND INFLAMED (L57.0) ULCER WITH SUPERFICIAL DERMAL NECROSIS (L98.499) (see microscopic description) Specimen B. 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 SKIN, right forearm: BASAL CELL CARCINOMA, NODULAR TYPE (C44.612) Specimen D. 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 The specimen consists of a shave biopsy measuring 11x9x2 mm. Jar 0. Specimen B: Received is one formalin filled container labeled with the patient's name and designated right crown post. The specimen consists of a shave biopsy measuring 98i59j1 mm. Jar 0. Specimen C: Received is one formalin filled container labeled with the patient's name and designated right forearm. The specimen consists of a shave biopsy measuring 8x6x2 mm. Jar 0. Specimen D: Received is one formalin filled container labeled with the patient's name and designated right forearm distal. The specimen consists of a shave biopsy measuring 8x8x3 mm. Jar 0. 1:39 PM CDT DERMATOPATHOLOGY LABORATORY Microscopic Description Specimen A. SKIN, right crown: There is alternating orthokeratosis and parakeratosis. The epidermis is focally eroded. Along the undersurface of the epidermis, there are buds of atypical keratinocytes in a disorderly arrangement. There is a lymphohistiocytic infiltrate within the dermis. There is an ulcer, beneath which there are vascular proliferation, fibroblasts, and an edematous stroma. Focal dermal fibrosis is also present. Specimen B. SKIN, right crown post: The epidermis shows parakeratosis, full thickness disorderly maturation of keratinocytes, mitoses at different levels, and dyskeratotic cells. Specimen C. SKIN, right forearm: Within the dermis there are aggregates of basaloid cells with a high nuclear to cytoplasmic ratio and peripheral palisading. Specimen D. SKIN, right forearm distal: The epidermis shows parakeratosis, full thickness disorderly maturation of keratinocytes, mitoses at different levels, and dyskeratotic cells. 1:39 PM CDT DERMATOPATHOLOGY LABORATORY Disclaimer An external and internal positive and negative controls are appropriate for the histochemical, immunohistochemical and immunofluorescence stain(s) in this case (if any), except where stated explicitly. The performance characteristics of the stain(s) cited in this report were developed and its performance characteristic determined by the Dermatopathology Laboratory at [facility], directed by Dr. Charly Mistry. These tests need not be, and therefore are not, approved by the [place] Food and Drug Administration. The tests are used for clinical purposes. Billing Codes Specimen Charges Stain Charges 12656 [id number] [id number] 1 1 1 1 5 1:39 PM CDT DERMATOPATHOLOGY LABORATORY Embedded Images 1:39 PM CDT DERMATOPATHOLOGY LABORATORY Pathology/Cytology TISSUE SPECIMEN FROM SKIN / Unknown 11/14/2024 11:14 AM CDT 11/16/2024 8:00 AM CDT Miscellaneous samples (specimen) TISSUE SPECIMEN FROM SKIN / Unknown 11/14/2024 11:14 AM CDT 11/16/2024 8:00 AM CDT Miscellaneous samples (specimen) TISSUE SPECIMEN FROM SKIN / Unknown 11/14/2024 11:14 AM CDT 11/16/2024 8:00 AM CDT Miscellaneous samples (specimen) TISSUE SPECIMEN FROM SKIN / Unknown 11/14/2024 11:14 AM CDT 11/16/2024 8:00 AM CDT us Vanessa Figueroa MD LAB - PATHOLOGY/CYTOLOGY ORD ERABLES Final Result DERMATOPATHOLOGY LABORATORY [facility] - Department of Dermatology [facility] [address] [place] [address], [address] [phone] documented in this encounter Visit Diagnoses Not on filedocumented in this encounter Care Teams Semiconductor Wafers Etcher Stripper Relationship Specialty Start Date End Date Jonathan Barboza DO [address] [place] [id number] PCP - General Internal Medicine 07/20/23 documented as of this encounter
--- OUTSIDE RECORDS SUMMARY | 2025-01-22 13:02 | XMS_ITS | Clinical Summary ---
Author Organization [facility] Address [address] [place] [address] Phone Care Team Providers Care Department Specialist Name Role Phone Ghadamaryam Jonathan Raffi Primary Care Provider Allergies Active Allergy Reactions Criticality Noted Date Comments Adhesive Rash Medium 07/23/2020 Cephalexin Diarrhea Low 07/23/2020 Diarrhea causing dehydration and severe hypoglycemia (<30) Medications atorvastatin (LIPITOR) 20 mg tablet Take 20 mg by mouth daily at bedtime. 0 Active flash glucose scanning reader (FreeStyle Daniele 14 Day [place]) Misc CHANGE EVERY 14 DAYS 1 Active flash glucose sensor (FreeStyle Daniele 14 Day Sensor) Kit CHANGE EVERY 14 DAYS 1 Active insulin glargine (Basaglar KwikPen U-100 Insulin) 100 unit/mL pen syringe Inject 16 Units by subcutaneous injection daily at bedtime. 0 Active lancets (OneTouch UltraSoft Lancets) USE TO CHECK BLOOD SUGAR DIRECTED 1 Active losartan (COZAAR) 25 mg tablet Take 25 mg by mouth. 0 Active metFORMIN (GLUCOPHAGE) 500 mg tablet Take by mouth 2 times daily. 0 Active oxyCODONE (ROXICODONE) 5 mg tablet Take 5 mg by mouth. 1 Active Insulin [place], Disposable, (BD Ultra-Fine Short Pen Needle) 31 gauge x 5/16 Needle USE ONCE D WITH BASAGLAR 0 Active Active Problems No known active problems Social History Tobacco Use Types Packs/Day Years Used Date Smoking Tobacco: Some Days Cigars Smokeless Tobacco: Current Alcohol Use Standard Drinks/Week Comments Yes 1 (1 standard drink = 0.6 oz pur e alcohol) Sex and Gender Information Value Date Recorded Sex Assigned at Not on file Legal Sex Male 10:57 AM TECHNICAL SERVICE ENGINEER Gender Identity Not on file Sexual Orientation Not on file Last Filed Vital Signs Vital Sign Reading Time Taken Comments Blood Pressure 160/90 06/03/2021 9:03 AM TECHNICAL SERVICE ENGINEER Pulse 97 06/03/2021 9:03 AM TECHNICAL SERVICE ENGINEER Temperature - - Respiratory Rate - - Oxygen Saturation 98% 06/03/2021 9:03 AM TECHNICAL SERVICE ENGINEER Inhaled Oxygen Concentration - - Weight 81.2 kg (179 lb) 06/03/2021 9:03 AM TECHNICAL SERVICE ENGINEER Height - - Body Mass Index - - Plan of Treatment Health Maintenance Due Date Last Done Comments DIABETES ANNUAL FOOT EXAM 1964 DIABETES ANNUAL RETINAL EXAM 1964 DIABETES MICROALBUMIN ANNUAL SCREEN 1964 LDL CHOLESTEROL ANNUAL 1964 DTAP/TDAP/TD VACCINES (1 - Tdap) 1965 PNEUMOCOCCAL VACCINE 50+ YEA RS (1 of 2 - PCV) 1965 ZOSTER VACCINE (1 of 2) 1965 DIABETES HBA1C Q 6 MONTHS 02/01/2021 08/01/2020 RSV VACCINE (60+ or ) (1 - 1-dose 75+ series) 2021 INFLUENZA VACCINE (#1) 2024 03/08/2020, 2017 Insurance [facility] PREFERRED Care Teams Department Specialist Relationship Specialty Start Date End Date Jonathan Barboza DO [address] [place] [address] PCP - General Internal Medicine 06/03/21
--- OUTSIDE RECORDS SUMMARY | 2025-01-22 13:02 | XMS_ITS | Encounter Summary ---
Author Organization [facility] Health Address [address] [facility] [place] [address] Care Team Providers Care Insurance Account Executive Name Role Phone Jonathan Barboza DO Primary Care Provider Encounter Details Date Type Department Care Team (Late Contact Info) Description 06/28/2023 Lab Requisition [facility] - DermPath Lab [address] [facility], [place] [phone] Vanessa Figueroa MD [address] [facility] 3 [place] [address] Social History Tobacco Use Types Packs/Day Years [...] Group - Dermatology [address] , [facility] [address] [place] [phone] documented as of this encounter Procedures Procedure Name Priority Date/Time Associated Diagnosis Comments DERMATOPATHOLOGY Routine 06/28/2023 8:49 AM OIL GAUGER documented in this encounter Results * DERMATOPATHOLOGY (06/28/2023 8:49 AM OIL GAUGER) Case Report Dermatopathology Report Case: [id number] Authorizing Provider: Vanessa Figueroa MD Collected: 06/28/2023 08:49 AM Ordering Location: [facility] DermPath Lab Received: 06/29/2023 07:49 AM Pathologist: Citlaly Mistry MD Specimens: A) - Skin, left crown B) - Skin, crown midline C) - Skin, right crown 5:20 PM [facility] DERMATOPATHOLOGY LABORATORY Final Diagnosis Specimen A. 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 The specimen consists of a shave biopsy measuring 9x8x4 mm. Jar 0. Specimen B: Received is one formalin filled container labeled with the patient's name and designated crown midline. The specimen consists of a shave biopsy measuring 9x8x3 mm. Jar 0. Specimen C: Received is one formalin filled container labeled with the patient's name and designated right crown. The specimen consists of a shave biopsy measuring 9x7x3 mm. Jar 0. 5:20 PM [facility] DERMATOPATHOLOGY LABORATORY Microscopic Description Specimen A. SKIN, left crown: The epidermis shows parakeratosis, full thickness disorderly maturation of keratinocytes, mitoses at different levels, and dyskeratotic cells. There is a column of marked compact hyperkeratosis. Specimen B. SKIN, crown midline: The epidermis shows parakeratosis, full thickness disorderly maturation of keratinocytes, mitoses at different levels, and dyskeratotic cells. There is a column of marked compact hyperkeratosis. Specimen C. SKIN, right crown: The epidermis shows parakeratosis, full thickness disorderly maturation of keratinocytes, mitoses at different levels, and dyskeratotic cells. There is a column of marked compact hyperkeratosis. 4 5:20 PM [facility] DERMATOPATHOLOGY LABORATORY Disclaimer An external and internal positive and negative controls are appropriate for the histochemical, immunohistochemical and immunofluorescence stain(s) in this case (if any), except where stated explicitly. The performance characteristics of the stain(s) cited in this report were developed and its performance characteristic determined by the Dermatopathology Laboratory at [facility], directed by Dr. Charly Mistry. These tests need not be, and therefore are not, approved by the [place] Food and Drug Administration. The tests are used for clinical purposes. Billing Codes Specimen Charges Stain Charges 82200 81264 40773 1 1 1 4 5:20 PM [facility] DERMATOPATHOLOGY LABORATORY Embedded Images 4 5:20 PM [facility]IL [facility] DERMATOPATHOLOGY LABORATORY Pathology/Cytology TISSUE SPECIMEN FROM SKIN / Unknown 06/28/2023 8:49 AM OIL GAUGER 06/29/2023 7:49 AM OIL GAUGER Miscellaneous samples (specimen) TISSUE SPECIMEN FROM SKIN / Unknown 06/28/2023 8:49 AM OIL GAUGER 06/29/2023 7:49 AM OIL GAUGER Miscellaneous samples (specimen) TISSUE SPECIMEN FROM SKIN / Unknown 06/28/2023 8:49 AM OIL GAUGER 06/29/2023 7:49 AM OIL GAUGER Vanessa Figueroa MD LAB - PATHOLOGY/CYTOLOGY ORD ERABLES Final Result DERMATOPATHOLOGY LABORATORY [facility] - Department of Dermatology [facility] Specialized Medicine [address] [place] [address], [address] [phone] documented in this encounter Visit Diagnoses Not on filedocumented in this encounter Care Teams Insurance Account Executive Relationship Specialty Start Date End Date Jonathan Barboza DO [address] [place] [phone] PCP - General Internal Medicine 07/20/23 documented as of this encounter
--- OUTSIDE RECORDS SUMMARY | 2025-01-22 13:02 | XMS_ITS ---
Author Organization [facility] Address [address] [place] [address] Care Team Providers Care Air Control/Anti Air Warfare Officer Name Role Phone Jonathan Barboza DO Primary Care Provider + [phone] Celeste Deutsch MD Unavailable [phone] Parag Stokes MD PhD Unavailable [phone] Lynsey Lima MD Unavailable + [phone] Danna Goss RN Unavailable [phone] Active Problems Patient Care Coordination No te Formatting of this note migh t be different from the original. Pharmacy: [facility]: [phone] Specialty: [facility] Specialty Program Labs: [facility] Labs interface. Place orders with Kareem MORENO Timeframe orders are good for: 1 year Last orders sent to lab on: 10/11/2024 (MD) Standing order: CBC w/diff, CMP, GGT, [place], Evero Bi-weekly HH: [facility] Home Care Problem Noted Date Diagnosed Date Elevated PSA 07/02/2024 Status post liver transplantation 11/10/2022 Diabetes mellitus, type II 06/05/2020 HTN (hypertension) 06/05/2020 Hyperlipidemia 06/05/2020 Current Treatment and Therapy Plans No current plan information found. Past Treatment and Therapy Plans No past plan information found. Lifetime Dose Tracking * Chemical Lifetime Dose Automatic Entry Manual Entr y doxorubicin 102.564 mg/m2 (200 mg) 102.564 mg/m2 (200 mg) 0 mg/m2 (0 mg) Fluoro Time 124.2 minutes 124.2 minutes 0 minutes doxorubicin isotoxic equivalent (Please manually verify calculation) 102.564 mg/m2 (200 mg) 102.564 mg/m2 (200 mg) 0 mg/m2 (0 mg) Air kerma at the reference point (Ka,r) 8,097 mGy 8,097 mGy 0 mGy DLP 2,449 mGycm 2,449 mGycm 0 mGycm Resolved Problems Problem Noted Date Diagnosed Date Resolved Date Hepatic cirrhosis 11/23/2022 11/23/2023 Chronic liver failure without hepatic coma 11/10/2022 11/23/2023 HCC (hepatocellular carcinoma) 11/10/2022 11/23/2023 Hepatocellular carcinoma 09/25/202007/2023 Cancer Staging:Clinical: Unsigned Pathologic stage from 09/25/2020:Stage IB(pT1b, pN0, cM0) - Unsigned Acute postoperative abdominal pain 08/02/2020 11/23/2023 Painful respiration 08/02/2020 11/23/19 24 Liver mass 06/05/2020 11/23/2023
--- OUTSIDE RECORDS SUMMARY | 2025-01-22 13:02 | XMS_ITS | Encounter Summary ---
Author Organization [facility] Health Address [address] [facility] [place] [address] Care Team Providers Care Security Dispatcher Name Role Phone Jonathan Barboza DO Primary Care Provider [phone] Encounter Details Date Type Department Care Team (Late Contact Info) Description 10/04/2023 Lab Requisition [facility] - DermPath Lab [address] [facility], [place] [phone] Vanessa Figueroa MD [address] [facility] 3 [place] [address] Social History Tobacco Use Types Packs/Day Years [...] Group - Dermatology [address] , [facility] 200 [place] [phone] documented as of this encounter Procedures Procedure Name Priority Date/Time Associated Diagnosis Comments DERMATOPATHOLOGY Routine 10/04/2023 10:3 8 AM CDT documented in this encounter Results * DERMATOPATHOLOGY (10/04/2023 10:38 AM CDT) Case Report Dermatopathology Report Case: [id number] Authorizing Provider: Vanessa Figueroa MD Collected: 10/04/2023 10:38 AM Ordering Location: [facility] - Received: 10/04/2023 03:48 PM DermPath Lab Pathologist: Citlaly Mistry MD Specimens: A) - Skin, mid crowns B) - Skin, right posterior crown 3:48 PM CDT DERMATOPATHOLOGY LABORATORY Final Diagnosis Specimen A. 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 SKIN, right posterior crown: HYPERPLASTIC (HYPERTROPHIC) ACTINIC KERATOSIS (L57.0) OVERLYING CUTANEOUS HORN (L85.8) 3:48 PM CDT DERMATOPATHOLOGY LABORATORY at 1548 CDT Clinical History A-B: r/o SCC 3:48 PM CDT DERMATOPATHOLOGY LABORATORY Gross Description Specimen A: Received is one formalin filled container labeled with the patient's name and designated mid crowns. The specimen consists of a shave biopsy measuring 7x6x1 mm. Jar 0. Specimen B: Received is one formalin filled container labeled with the patient's name and designated right posterior crown. The specimen consists of a shave biopsy measuring 10x6x2 mm. Jar 0. 3:48 PM CDT DERMATOPATHOLOGY LABORATORY Microscopic Description Specimen A. SKIN, mid crowns: The epidermis shows parakeratosis, full thickness disorderly maturation of keratinocytes, mitoses at different levels, and dyskeratotic cells. The lesion extends to the base of the biopsy. COMMENT: An invasive squamous cell carcinoma cannot be ruled out. Specimen B. SKIN, right posterior crown: There is hyperkeratosis alternating with parakeratosis. There is epidermal hyperplasia with disorderly maturation of keratinocytes with nuclear pleomorphism confined to the lower half of the epidermis. There is a column of marked compact hyperkeratosis. 3:48 PM CDT DERMATOPATHOLOGY LABORATORY Disclaimer An external and internal positive and negative controls are appropriate for the histochemical, immunohistochemical and immunofluorescence stain(s) in this case (if any), except where stated explicitly. The performance characteristics of the stain(s) cited in this report were developed and its performance characteristic determined by the Dermatopathology Laboratory at [facility], directed by Dr. Charly Mistry. These tests need not be, and therefore are not, approved by the [place] Food and Drug Administration. The tests are used for clinical purposes. Billing Codes Specimen Charges Stain Charges 67521 86814 1 1 4 3:48 PM CDT DERMATOPATHOLOGY LABORATORY Embedded Images 3:48 PM CDT DERMATOPATHOLOGY LABORATORY Pathology/Cytology TISSUE SPECIMEN FROM SKIN / Unknown 10/04/2023 10:38 AM CDT 10/04/2023 3:48 PM CDT Miscellaneous samples (specimen) TISSUE SPECIMEN FROM SKIN / Unknown 10/04/2023 10:38 AM CDT 10/04/2023 3:48 PM CDT Vanessa Figueroa MD LAB - PATHOLOGY/CYTOLOGY ORD ERABLES Final Result DERMATOPATHOLOGY LABORATORY [facility] - Department of Dermatology [facility] Specialized Medicine [address] [place] [address] [phone] documented in this encounter Visit Diagnoses Not on filedocumented in this encounter Care Teams Security Dispatcher Relationship Specialty Start Date End Date Jonathan Barboza DO [address] [place] [phone] PCP - General Internal Medicine 07/20/23 documented as of this encounter
--- OUTSIDE RECORDS SUMMARY | 2025-01-22 13:02 | XMS_ITS | Encounter Summary ---
Author Organization [facility] Health Address [address] [place] [address] Care Team Providers Care Complaint Investigations Officer Name Role Phone Jonathan Barboza DO Primary Care Provider Encounter Details Date Type Department Care Team (Late Contact Info) Description 02/07/2024 Lab Requisition [facility] - DermPath Lab [address] [facility], [place] [phone] Vanessa Figueroa MD [address] [facility] 3 [place] [address] Social History Tobacco Use Types Packs/Day Years [...] Group - Dermatology [address] , [facility] 200 [place] [phone] documented as of this encounter Procedures Procedure Name Priority Date/Time Associated Diagnosis Comments DERMATOPATHOLOGY Routine 02/07/2024 9:58 AM CDT documented in this encounter Results * DERMATOPATHOLOGY (02/07/2024 9:58 AM CDT) Case Report Dermatopathology Report Case: [id number] Authorizing Provider: Vanessa Figueroa MD Collected: 02/07/2024 09:58 AM Ordering Location: [facility] - Received: 02/07/2024 03:25 PM DermPath Lab Pathologist: Citlaly Mistry MD Specimens: A) - Skin, right sikhism B) - Skin, right back 2:15 PM CDT DERMATOPATHOLOGY LABORATORY Final Diagnosis Specimen A. SKIN, right sikhism: SQUAMOUS CELL CARCINOMA IN SITU, ACANTHOLYTIC; PRESENT AT THE BASE OF THE SPECIMEN (D04.39) (see microscopic description and comment) Specimen B. SKIN, right back: BASAL CELL CARCINOMA, NODULAR TYPE (C44.519) 2:15 PM CDT DERMATOPATHOLOGY LABORATORY at 1415 CDT Clinical History BCC vs SCC 2:15 PM CDT DERMATOPATHOLOGY LABORATORY Gross Description Specimen A: Received is one formalin filled container labeled with the patient's name and designated right sikhism. The specimen consists of a shave biopsy measuring 5x5x1 mm. Jar 0. Specimen B: Received is one formalin filled container labeled with the patient's name and designated right back. The specimen consists of a shave biopsy measuring 7x6x2 mm. Jar 0. 2:15 PM CDT DERMATOPATHOLOGY LABORATORY Microscopic Description Specimen A. SKIN, right sikhism: The epidermis shows parakeratosis, full thickness disorderly maturation of keratinocytes, mitoses at different levels, and dyskeratotic cells. The lesion extends to the base of the biopsy. COMMENT: An invasive squamous cell carcinoma cannot be ruled out. Specimen B. SKIN, right back: Within the dermis there are aggregates of basaloid cells with a high nuclear to cytoplasmic ratio and peripheral palisading. 2:15 PM CDT DERMATOPATHOLOGY LABORATORY Disclaimer An external and internal positive and negative controls are appropriate for the histochemical, immunohistochemical and immunofluorescence stain(s) in this case (if any), except where stated explicitly. The performance characteristics of the stain(s) cited in this report were developed and its performance characteristic determined by the Dermatopathology Laboratory at [facility], directed by Dr. Charly Mistry. These tests need not be, and therefore are not, approved by the [place] Food and Drug Administration. The tests are used for clinical purposes. Billing Codes Specimen Charges Stain Charges 12173 39429 1 1 4 2:15 PM CDT DERMATOPATHOLOGY LABORATORY Embedded Images 4 2:15 PM CDT DERMATOPATHOLOGY LABORATORY Pathology/Cytology TISSUE SPECIMEN FROM SKIN / Unknown 02/07/2024 9:58 AM CDT 02/07/2024 3:25 PM CDT Miscellaneous samples (specimen) TISSUE SPECIMEN FROM SKIN / Unknown 02/07/2024 9:58 AM CDT 02/07/2024 3:25 PM CDT us Vanessa Figueroa MD LAB - PATHOLOGY/CYTOLOGY ORD ERABLES Final Result DERMATOPATHOLOGY LABORATORY [facility] - Department of Dermatology [facility] Specialized Medicine [address] [place] [address], [address] [phone] documented in this encounter Visit Diagnoses Not on filedocumented in this encounter Care Teams Complaint Investigations Officer Relationship Specialty Start Date End Date Jonathan Barboza DO [address] [place] [address] PCP - General Internal Medicine 07/20/23 documented as of this encounter
--- OUTSIDE RECORDS SUMMARY | 2025-01-22 13:02 | XMS_ITS | Encounter Summary ---
Author Organization [facility] Health Address [address] [facility] [place] [address] Care Team Providers Care Sealer Aircraft Name Role Phone Jonathan Barboza DO Primary Care Provider Encounter Details Date Type Department Care Team (Late Contact Info) Description 02/27/2024 Lab Requisition [facility] - DermPath Lab [address] [facility] [place] [phone] Vanessa Figueroa MD [address] [facility] 3 [place] [address] Social History Tobacco Use Types Packs/Day Years [...] Dermatology [address] , [facility] [address] [place] [phone] documented as of this encounter Procedures Procedure Name Priority Date/Time Associated Diagnosis Comments DERMATOPATHOLOGY Routine 02/27/2024 8:19 AM CDT documented in this encounter Results * DERMATOPATHOLOGY (02/27/2024 8:19 AM CDT) Case Report Dermatopathology Report Case: [id number] Authorizing Provider: Vanessa Figueroa MD Collected: 02/27/2024 08:19 AM Ordering Location: [facility] - Received: 02/27/2024 10:57 AM DermPath Lab Pathologist: Citlaly Mistry MD Specimen: Skin, right back 2:49 PM CDT DERMATOPATHOLOGY LABORATORY Final Diagnosis Specimen A. SKIN, right back: BASAL CELL CARCINOMA (C44.519) NOT PRESENT AT MARGIN DERMAL SCAR (L90.5) 2:49 PM CDT DERMATOPATHOLOGY LABORATORY at 1449 CDT Clinical History Bx proven BCC 2:49 PM CDT DERMATOPATHOLOGY LABORATORY Gross Description Specimen A: Received is one formalin filled container labeled with the patient's name and designated right back. The specimen consists of a non-oriented ellipse of skin measuring 54t89g4 mm. The epidermal surface is unremarkable. The margin is inked green. The 12 o'clock and 6 o'clock tips are submitted in cassette 1. The remainder of the ellipse is serially sectioned and submitted in cassette 2 -5. Jar 0. 2:49 PM CDT DERMATOPATHOLOGY LABORATORY Microscopic Description Specimen A. SKIN, right back: Within the dermis there are aggregates of basaloid cells with a high nuclear to cytoplasmic ratio and peripheral palisading. This lesion is not present at the margin of the specimen. There are fibroblasts and collagen bundles oriented parallel to the skin surface with elongated blood vessels, some of which are oriented perpendicular to the skin surface. 2:49 PM CDT DERMATOPATHOLOGY LABORATORY Disclaimer An external and internal positive and negative controls are appropriate for the histochemical, immunohistochemical and immunofluorescence stain(s) in this case (if any), except where stated explicitly. The performance characteristics of the stain(s) cited in this report were developed and its performance characteristic determined by the Dermatopathology Laboratory at [facility], directed by Dr. Charly Mistry. These tests need not be, and therefore are not, approved by the [place] Food and Drug Administration. The tests are used for clinical purposes. Billing Codes Specimen Charges Stain Charges 40670 1 2:49 PM CDT DERMATOPATHOLOGY LABORATORY Embedded Images 2:49 PM CDT DERMATOPATHOLOGY LABORATORY Pathology/Cytolo gy TISSUE SPECIMEN FROM SKIN / Unknown 02/27/2024 8:19 AM CDT 02/27/2024 10:57 AM CDT Vanessa Figueroa MD LAB - PATHOLOGY/CYTOLOGY ORD ERABLES Final Result DERMATOPATHOLOGY LABORATORY [facility] - Department of Dermatology [facility] Specialized Medicine [address] [place] [address], [address] [phone] documented in this encounter Visit Diagnoses Not on filedocumented in this encounter Care Teams Sealer Aircraft Relationship Specialty Start Date End Date Jonathan Barboza DO [address] [place] [phone] PCP - General Internal Medicine 07/20/23 documented as of this encounter
--- OUTSIDE RECORDS SUMMARY | 2025-01-22 13:02 | XMS_ITS | Encounter Summary ---
Author Organization [facility] Healthcare Address [address] [place] [address] Care Team Providers Care Vulcan Crewmember Name Role Phone Jonathan Barboza DO Primary Care Provider + [phone] Celeste Deutsch MD Unavailable [phone] Parag Stokes MD PhD Unavailable [phone] Lynsey Lima MD Unavailable + [phone] Danna Goss RN Unavailable [phone] Encounter Details Date Type Department Care Team (Late st Contact Info) Description 11/29/2024 Results Follow-Up [facility] Transplant Liver [address] [facility] [id number] [place] [address] Danna Goss RN [address] [facility] [address] [place] [address] MRI Abdomen W WO Contrast Social History Tobacco Use Types Packs/Day Years Used Date Smoking Tobacco: Former Cigars S tarted: 1965 Passive Smoke Exposure: Never Smokeless Tobacco: Never Comments:quit x 21 years cig arettes, cigar daily Alcohol Use Standard Drinks/Week Comments Yes 0 (1 standard drink = 0.6 oz pur e alcohol) 2 drinks per week OASIS D0700: Social Isolation Answer Da te Recorded Frequency of experiencing loneliness or isolatio n Never 12/16/2022 OASIS A1250: Transportation Answer Date Recorded Lack of Transportation (Medical) No 12/16/2022 Lack of Transportation (Non-Medical) No 12/16/2022 Patient Unable or Declines to Respond No 12/16/2022 OASIS B1300: Health Literacy Answer Dewayne e Recorded Frequency of needing help to read materials from doctor or pharmacy Rarely 12/16/2022 Social Connection and Isolation Panel Answer Date Recorded In a typical week, how many times do you talk on the phone with family, friends, or neighbors? More than three times a week 11/26/2022 How often do you get togethe r with friends or relatives? More than three times a week 11/26/2022 Attends Buddhism Services Not on file 11/26 Active Member of Clubs or Organizations Not on f ile 11/26/2022 Attends Club or Organization Meetings Not on inderjit e 11/26/2022 Are you , , di vorced, , never , or living with a partner? 11/26/2022 AUDIT-C Answer Date Recorded Q1: How often do you have a drink containing alc ohol? 2-4 times a month 10/01/2022 Q2: How many drinks containi ng alcohol do you have on a typical day when you are drinking? 1 or 2 10/01/2022 Q3: How often do you have si x or more drinks on one occasion? Never 10/01/2022 Overall Financial Resource Strain (CARDIA) Answe r Date Recorded How hard is it for you to pa y for the very basics like food, housing, medical care, and heating? Not hard at all 11/26/2022 Hunger Vital Sign Answer Date Recorded Within the past 12 months, y ou worried that your food would run out before you got the money to buy more. Never true 11/27/19 23 Within the past 12 months, t he food you bought just didn't last and you didn't have money to get more. Never true 11/26/2022 PRAPARE - Transportation Answer Date Re corded In the past 12 months, has l ack of transportation kept you from medical appointments or from getting medications? No 11/2022 In the past 12 months, has l ack of transportation kept you from meetings, work, or from getting things needed for daily living? No 11/26/2022 Housing Stability Vital Sign Answer Dewayne e Recorded In the last 12 months, was t here a time when you were not able to pay the mortgage or rent on time? No 12/30/2021 In the last 12 months, how many places have you lived? 1 12/30/2021 In the last 12 months, was t here a time when you did not have a steady place to sleep or slept in a longterm (including now)? No 12/30/2021 Personal Safety Answer Date Recorded Have you ever been in or are you currently in a harmful physical or emotional relationship or is someone making you feel afraid or unsafe? Denies 11/24/2022 Sex and Gender Information Value Date Recorded Sex Assigned at Not on file Legal Sex Male 1:15 PM CDT Gender Identity Not on file Sexual Orientation Not on file documented as of this encounter Plan of Treatment Scheduled Procedures Name Priority Associated Diagnoses Date/Ti me TRANSPLANT LIVER Hepatocellular carcinoma (HCC) documented as of this encounter Visit Diagnoses Not on filedocumented in this encounter Care Teams Vulcan Crewmember Relationship Specialty Start Date End Date Jonathan Barboza DO PCP - General Internal Medicine 03/26/20 Celeste Deutsch MD [address] [facility] [address] DIV SURG TRANSPLANT, [address] [address] Consulting Physician Transplant 09/11/20 Parag Stokes MD PhD [address] [facility] [address] DIV SURG TRANSPLANT, [address] [address] Medical Oncologist/Cover Mat Machine Operator Medical Oncology 12/31/20 Lynsey Lima MD [address] [facility] [address] DIV IM GASTROENTEROLOGY, [address] [address] Referring Physician Gastroenterology 01/01/22 Danna Goss RN [address] [address] Cps Team Lead 11/25/22 documented as of this encounter
--- OUTSIDE RECORDS SUMMARY | 2025-01-22 13:02 | XMS_ITS | Encounter Summary ---
Author Organization [facility] Healthcare Address [address] [place] [address] Care Team Providers Care Rubber Washer Name Role Phone Jonathan Barboza DO Primary Care Provider [phone] Braxton Presley MD Unavailable Celeste Deutsch MD Unavailable [phone] Parag Stokes MD PhD Unavailable [phone] Lynsey Lima MD Unavailable [phone] Charlene Marques RN Unavailable [phone] Danna Goss RN Unavailable [phone] Encounter Details Date Type Department Care Team (Late st Contact Info) Description 10/09/2020 Telephone [facility] [address] [place] [address] Ana Garcia, Social History Tobacco Use Types Packs/Day Years Used Date Smoking Tobacco: Former Cigarettes S tarted: 1965 Cigars Smokeless Tobacco: Never Comments:quit x 21 years cig arettes, cigar daily Alcohol Use Standard Drinks/Week Comments Yes 0 (1 standard drink = 0.6 oz pur e alcohol) 2 drinks per week AUDIT-C Answer Date Recorded Q1: How often do you have a drink containing alc ohol? Monthly or less 07/23/2020 Q2: How many drinks containi ng alcohol do you have on a typical day when you are drinking? 3 or 4 07/23/2020 Q3: How often do you have si x or more drinks on one occasion? Never 07/23/2020 Sex and Gender Information Value Date Recorded [...] on filedocumented in this encounter Care Teams Rubber Washer Relationship Specialty Start Date End Date Jonathan Barboza DO PCP - General Internal Medicine 03/26/20 Braxton Presley MD Referring Physician Internal Medicine 06/19/20 11/24/22 Celeste Deutsch MD [address] [facility] [address] SURG TRANSPLANT, [address] [address] Consulting Physician Transplant 09/11/20 Parag Stokes MD PhD [address] [facility] [address] SURG TRANSPLANT, [address] [address] Medical Oncologist/Supervisor [place] Medical Oncology 12/31/20 Lynsey Lima MD [address] [facility] [address] IM GASTROENTEROLOGY, [address] [address] Referring Physician Gastroenterology 01/01/22 Charlene Marques RN [address] [address] Assistant Plant Manager 04/01/22 Danna Betancourt RN [address] [address] Assistant Plant Manager 11/25/22 documented as of this encounter
--- OUTSIDE RECORDS SUMMARY | 2025-01-22 13:02 | XMS_ITS | Clinical Summary ---
Author Organization [facility] Address [address] [place] [address] Care Team Providers Care Client Services Administrator Name Role Phone Jonathan Barboza DO Primary Care Provider Source Comments [facility] [employer] [facility],non-owned Affiliates and Associated Physician Practices is amultiple site organization consisting of ambulatory clinics and hospital sitesin [place], [place], [place] and [place]. This disclosure is being madepursuant to the Care Everywhere program and may not contain all information available regarding this patient. Last updated 18.[facility] Allergies Active Allergy Reactions Criticality Noted Date Comments Adhesive Sensitivity Rash Medium 07/23/2020 Cephalexin Diarrhea Low 07/23/2020 Diarrhea causing dehydration and severe hypoglycemia (<30) Diarrhea causing dehydration and severe hypoglycemia (<30) Rocuronium Anaphylaxis High 11/25/2022 Got during liver tx surgery, developed Hypotension and a rash with elevated tryptase level Medications * Be aware that medications may not be up to date on this document. Alwaysverify current medications with the patient. everolimus (Zortress) 0.5 MG tablet Take 2 (two) tablets by mouth 2 times daily 01/21/20 23 Active aspirin EC (Ecotrin) 81 MG tablet Take 1 (one) tablet by mouth once daily 30 tablet 11 11/26/19 23 Active atorvastatin (Lipitor) 40 MG tablet Take 1 (one) tablet by mouth at bedtime 04/21/20 23 Active carvedilol (Coreg) 12.5 MG tablet 07/18/19 24 Active metFORMIN (Glucophage) 500 MG tablet Take 2 (two) tablets by mouth 2 times daily 05/31/19 24 Active sulfamethoxazol e-trimethoprim (Bactrim; Septra) 400-80 MG tablet 07/18/19 24 Active Jardiance 25 MG tablet TAKE 1 TABLET BY MOUTH DAILY. START WEEK 2 AND. CONTINUE THEREAFTER 06/26/19 24 Active acetaminophen (Tylenol) 325 MG tablet Take 2 (two) tablets by mouth 4 times daily 11/30/19 23 Active testosterone cypionate (Depo-Testoster one) 200 MG/ML injection 09/08/19 24 Active fluorouracil (Efudex) 5 % cream 10/18/19 24 Active tacrolimus (Prograf) 1 MG capsule Take 1 (one) capsule by mouth 2 times daily 08/23/19 24 Active Continuous Glucose Sensor (Dexcom G6 Sensor) MISC USE TO MONITOR BLOOD SUGAR EVERY 10 DAYS 08/22/19 025 Discontin ued(List Clean-Up) Continuous Glucose Transmitter (Dexcom G6 Transmitter) MISC USE TO CHECK BLOOD SUGAR DIRECTED 09/21/19 025 Discontin ued(List Clean-Up) BD Disp [place] 18G X 1-1/2 MISC USE TO DRAW UP TESTOSTERONE 07/25/19 24 025 Discontin ued(List Clean-Up) B-D 3CC LUER-CARROL SYR 53TM7-6/2 25G X 1-1/2 3 ML MISC USE TO INJECT TESTOSTERONE 07/26/19 24 025 Discontin ued(List Clean-Up) Active Problems Problem Noted Date Diagnosed Date Acrochordon 01/14/2025 Acute cholecystitis 01/14/2025 Back abscess 01/14/2025 Subcutaneous mass of back 01/14/2025 Cholelithiasis and acute cholecystitis without o bstruction 01/14/2025 Diarrhea 01/14/2025 Encounter for surgical after care following surgery on the digestive system 01/14/2025 Epidermal cyst 01/14/2025 Fever of unknown origin (FUO) 01/14/2025 Finger pain 01/14/2025 Hypoglycemia 01/14/2025 Hypothyroid 01/14/2025 Left sided numbness 01/14/2025 Lumbar post-laminectomy syndrome 01/14/2025 Major depressive disorder with single episode Poison clementine dermatitis 01/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 RUQ pain 01/14/2025 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 Trigger finger 01/14/2025 Elevated PSA 07/02/2024 Transplant 11/10/2022 Diabetes mellitus, type II 06/05/2020 HTN (hypertension) 06/05/2020 Hyperlipidemia 06/05/2020 Resolved Problems Problem Noted Date Diagnosed Date Resolved Date Hepatic cirrhosis 11/23/2022 01/14/2025 Chronic liver failure without hepatic coma 11/10/2022 01/14/2025 Hepatocellular carcinoma 09/25/2020 Acute postoperative abdominal pain 08/02/2020 01/14/2025 Painful respiration 08/02/2020 01/15/20 Liver mass 06/05/2020 01/14/2025 Encounters Date Type Department Care Team Description 01/14/2025 9:30 AM CDT Procedure visit [facility] - Dermatology [address] [place] [id number] Mena Hyatt MD 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 [facility] 12/19/2024 Telephone [facility] - Dermatology [address] [place] [address] Mena Hyatt MD Appointment 11/14/2024 Lab Requisition [facility] - Derm[facility] Lab [address] [facility] [place] [id number] Vanessa Figueroa MD from Last 3 Months Social History Tobacco Use Types Packs/Day Years Used Date Smoking Tobacco: Former Smokeless Tobacco: Never Sex and Gender Information Value Date Recorded Sex Assigned at Not on file Legal Sex Male 10:50 AM CDT Gender Identity Not on file Sexual Orientation Not on file Last Filed Vital Signs Vital Sign Reading Time Taken Comments Blood Pressure 162/90 02/21/2018 11:00 AM CDT Pulse 82 02/21/2018 11:00 AM CDT Temperature 36.4 C (97.6 F) 02/21/2018 11:00 AM CDT Respiratory Rate 16 02/21/2018 11:00 AM CDT Oxygen Saturation 97% 02/21/2018 11:00 AM CDT Inhaled Oxygen Concentration - - Weight 79.4 kg (175 lb) 02/21/2018 11:00 AM CDT Height 172.7 cm (5' 8) 02/21/2018 11:00 AM CDT Body Mass Index 26.61 02/21/2018 11:00 AM CDT Plan of Treatment Upcoming Encounters Date Type Department Care Team (Late st Contact Info) Description 02/25/2025 10:30 AM CDT Office Visit [facility] - Dermatology [address] [place] [address] Health Maintenance Due Date Last Done Comments MEDICARE AWV 12 MONTHS 1945 DTAP/TDAP/TD VACCINES (1 - Tdap) 1964 PNEUMOCOCCAL VACCINE 50+ (1 of 2 - PCV) 1965 ZOSTER VACCINE (1 of 2) 1965 Respiratory Syncytial Virus (RSV) Vaccine Pt: or over 60 yrs (1 - 1-dose 75+ series) 2021 DIABETES RETINOPATHY SCREENING 10/31/2023 DIABETES-FOOT EXAM WITH MONOFILAMENT 10/31/2023 DIABETES-SERUM CREATININE 03/01/20242022, 03/01/2023, 02/16/2023 DEPRESSION SCREENING 05/23/2024 DIABETES - URINE PROTEIN SCREENING 05/23/2024 03/01/2023 COVID-19 VACCINE (4 - 2024-2 6 season) 2025 03/23/2021, 07/22/2020, 06/19/2020 INFLUENZA VACCINE (#1) 2025 , 03/20/2019, 03/25/2018 DIABETES-HGB A1C 02/19/2025 08/20/2024, 04/25/2023 HEPATITIS C SCREENING Completed 12/29/2022 HEPATITIS B VACCINE Aged Out No longe r eligible based on patient's age to complete this topic HIB VACCINE Aged Out No longer eligi ble based on patient's age to complete this topic HPV VACCINE Aged Out No longer eligi ble based on patient's age to complete this topic MENINGOCOCCAL (Group B) VACCINE SHARED DECISION-MAKING Aged Out No longer eligible based on patient's age to complete this topic MENINGOCOCCAL GROUPS A/C/Y/W VACCINE Aged Out No longer eligible b ased on patient's age to complete this topic Procedures Procedure Name Priority Date/Time Associated Diagnosis Comments DERMATOPATHOLOGY Routine 11/14/2024 11:1 4 AM CDT from Last 3 Months Results * DERMATOPATHOLOGY (11/14/2024 11:14 AM CDT) Case Report Dermatopathology Report Case: [id number] Authorizing Provider: Vanessa Figueroa MD Collected: 11/14/2024 11:14 AM Ordering Location: [facility] - Received: 11/16/2024 08:00 AM DermPath Lab Pathologist: Yady Corona MD Specimens: A) - Skin, right crown B) - Skin, right crown post C) - Skin, right forearm D) - Skin, right forearm distal 1:39 PM CDT DERMATOPATHOLOGY LABORATORY Final Diagnosis Specimen [...] 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 Jar 0. Specimen C: Received is [...] measuring 8x8x3 mm. Jar 0. 1:39 PM [facility] DERMATOPATHOLOGY LABORATORY Microscopic Description Specimen A. SKIN, [...] different levels, and dyskeratotic cells. 1:39 PM T DERMATOPATHOLOGY LABORATORY Disclaimer An external and internal [...] purposes. Billing Codes Specimen Charges Stain Charges [id number] 1 1 1 1 1:39 PM CDT DERMATOPATHOLOGY LABORATORY Embedded Images 1:39 PM T DERMATOPATHOLOGY LABORATORY Pathology/Cytology TISSUE SPECIMEN FROM SKIN [...] 11:14 AM CDT 11/16/2024 8:00 AM CDT Vanessa Figueroa MD LAB - PATHOLOGY/CYTOLOGY ORD ERABLES Final Result DERMATOPATHOLOGY LABORATORY [facility] - Department of Dermatology [facility] [address] [place] [address], [facility] [phone] from Last 3 Months Insurance MEDICARE [facility] Care Teams Client Services Administrator Relationship Specialty Start Date End Date Jonathan Barboza DO [address] [place] [id number] PCP - General Internal Medicine 07/20/23
--- OUTSIDE RECORDS SUMMARY | 2025-01-22 13:02 | XMS_ITS ---
Author Organization [facility] Address [address] [place] [address] Care Team Providers Care Ornithology Teacher Name Role Phone Jonathan Barboza DO Primary Care Provider + [phone] Celeste Deutsch MD Unavailable [phone] Parag Stokes MD PhD Unavailable [phone] Lynsey Lima MD Unavailable + [phone] Danna Goss RN Unavailable [phone] Transplant Episode Liver Recipient [facility] ([place], [place]) - [facility] Organ Received: Liver Transplanted on 11/24/2022 Marked as Active Follow-up on 11/24/2022 Reason: Transplanted at [facility] Liver CoordinatorDanna Goss RN Fax: N/A Email: N/A [place] Organ Diagnosis Organ Primary Contributory Liver Primary Liver Malignancy: Hepato ma, Hepatocellular Carcinoma (HCC) Donor Information Organ ABO Source Meets Risk Criteria HLA Match Mismatches Cross Match Liver Transplanted A DBD No A: B: DR: Liver Donor Serology Results Anti-CMV CMV IgG: Negative EBV IgG EBV VCA IgG: Positive Anti-HBcAb HBC Total: Negative HBsAg HBsAg: Negative HBV DNA No results on file Anti-HCV HCV: Negative Anti-HIV I/II No results on file Anti-HTLV I/II HTLV: Negative RPR/VDRL RPR: Negative EBV IgM EBV VCA IgM: Not Done HBsAb HBsAb: Not Done EBNA No results on file Toxoplasma Toxoplasma IgG: Negative SARS CoV-2 No results on file Care Team Name Role Phone Fax Email Danna Goss RN Liver Coordinator [phone] N/A N/A Lynsey Lima MD Referring Physician [phone] N/A Events Post-Transplant Pre-Transplant Admitted: 11/23/2022 Referred: 12/03/2021 Transplanted: 11/24/2022 Evaluation began: 2 Discharged: 11/29/2022 Committee: 03/16/2022 Center waitlisted: 2
--- OUTSIDE RECORDS SUMMARY | 2025-01-22 13:02 | XMS_ITS | Clinical Summary ---
Author Organization [facility] Address [address] [place] [address] Care Team Providers Care Greens Cutter Name Role Phone Jonathan Barboza DO Primary Care Provider [phone] Celeste Deutsch MD Unavailable Parag Stokes MD PhD Unavailable [phone] Lynsey iLma MD Unavailable +- [phone] Danna Goss RN Unavailable [phone] Allergies Active Allergy Reactions Criticality Noted Date Comments Adhesive Rash Medium 07/23/2020 Cephalexin Diarrhea Low 07/23/2020 Diarrhea causing dehydration and severe hypoglycemia (<30) Rocuronium Anaphylaxis High 11/25/2022 Got during liver tx surgery, developed Hypotension and a rash with elevated tryptase level Medications atorvastatin (LIPITOR) 40 mg tablet Take 1 tablet (40 mg total) by mouth nightly at bedtime. 2 Active aspirin 81 mg enteric coated tabletIndication s:History of liver transplant (HCC) Take 1 tablet (81 mg total) by mouth daily 30 tablet 11 3 Active acetaminophen (TYLENOL) 325 mg tablet Take 2 tablets (650 mg total) by mouth every 6 (six) hours 30 tablet 3 Active blood-glucose sensor device 3 Cartridges every 14 (fourteen) days Dexcom 6 sensor 1 each 1 3 Active TechLITE Pen Needle 32 gauge x needle USE DIRECTED 3 TIMES A DAY 100 each 3 Active metFORMIN (GLUCOPHAGE) 500 mg tablet TAKE ONE TABLET BY MOUTH EVERY DAY WITH BREAKFAST. PLEASE HAVE PRIMARY CARE PHYSICIAN REFILL IN THE FUTURE 60 tablet 3 Active Jardiance 25 mg tablet TAKE 1 TABLET BY MOUTH DAILY. START WEEK 2 AND. CONTINUE THEREAFTER Active fluorouraciL (EFUDEX) 5 % cream 4 Active Dexcom G6 Transmitter device USE TO CHECK BLOOD SUGAR DIRECTED 4 Active carvediloL (COREG) 12.5 mg tablet Take 1 tablet (12.5 mg total) by mouth daily after lunch for 14 days Please have primary care physician refill 14 tablet 4 Active tacrolimus 1 mg immediate-releas e capsuleIndicatio ns:History of liver transplant (HCC) Take 1 capsule (1 mg total) by mouth 2 (two) times a day Ok for [employer] 60 capsule 11 5 Active doxycycline hyclate 100 mg capsule TAKE 1 CAPSULE BY MOUTH TWICE DAILY FOR 10 DAYS 5 Active losartan (COZAAR) 50 mg tabletIndication s:Primary hypertension Take 1 tablet (50 mg total) by mouth daily 30 tablet 2 5 Active everolimus (ZORTRESS) 0.5 mg tabletIndication s:History of liver transplant (HCC) Take 1 tablet (0.5 mg total) by mouth 2 (two) times a day Swallow whole with a glass of water. Do not take any tablet that is broken or crushed. 60 tablet 11 5 Active Active Problems Patient Care Coordination No te Formatting of this note migh t be different from the original. Pharmacy: [facility] Fx: [phone] Specialty: [facility] Specialty [facility]. [facility] orders with Atif MORENO Timeframe orders are good for: 1 year Last orders sent to lab on: 10/11/2024 ([place]) Standing order: CBC w/diff, CMP, GGT, Tacro, Evero Bi-weekly HH: [facility] Home Care Problem Noted Date Diagnosed Date [...] 08/02/2020 11/23/19 24 Liver mass 06/05/2020 11/23/2023 Encounters Date Type Department Care Team Description 01/15/2025 11:25 AM CDT Lab [address] [address] Liver replaced by transplant (Primary Dx) 01/10/2025 Telephone [facility] Transplant Liver [address] [place] [phone] Danna Goss RN Medication 12/24/2024 Telephone [facility] Transplant Liver [address] [place] [address] Danna Goss RN Cough 12/24/2024 Telephone [facility] Transplant Liver [address] [phone] [place] [address] Francesca Still 12/11/2024 Results Follow-Up [facility] Transplant Liver [address] [place] [address] [place] [phone] [place] [address] Danna Goss RN Everolimus level trough, Tacrolimus level trough, Gamma GT, Additional followed-up results: 4 12/10/2024 11:45 AM CDT Lab [facility] Outpatient Lab at [address] [address] 12/10/2024 11:42 AM CDT - 12/10/2024 11:59 PM CDT Hospital Encounter [address] [address] History of liver transplant (HCC); Encounter for long-term (current) use of high-risk medication Discharge Disposition: Discharge to home or self care 11/29/2024 Documentation [facility] Transplant Liver [address] [facility] [address] [phone] [place] [address] Danna Goss RN Test Results 11/29/2024 Telephone [facility] Transplant Liver [address] [place] [address] [address] [phone] [place] [address] Danna Goss RN Clinic Visit Follow Up 11/29/2024 Results Follow-Up [facility] Transplant Liver [address] [place] [address] Mailstop [phone] [place] [address] Danna Goss RN MRI Abdomen W WO Contrast 11/28/2024 10:01 AM CDT - 11/28/2024 11:59 PM CDT Hospital Encounter [facility] [address] [place] [address] Subacute cough Discharge Disposition: Discharge to home or self care 11/28/2024 10:00 AM CDT Office Visit [facility] Medicine Gastroenterology [address] [facility] 12th [place] [address] [place] [address] Wiliam Callaway MD Status post liver transplantation (HCC) (Primary Dx); Subacute cough; Primary hypertension 11/28/2024 7:56 AM CDT - 11/28/2024 11:59 PM CDT Hospital Encounter [facility] [address] [place] [address] Lynsey Lima MD S/P liver transplant (HCC); Hepatocellular carcinoma (HCC) Discharge Disposition: Discharge to home or self care 11/20/2024 11:00 AM CDT Lab [facility] Outpatient Lab at [address] [address] 11/20/2024 10:56 AM CDT - 11/20/2024 11:59 PM CDT Hospital Encounter [address] [address] History of liver transplant (HCC); Encounter for long-term (current) use of high-risk medication Discharge Disposition: Discharge to home or self care 10/22/2024 9:45 AM CDT Lab [facility] Outpatient Lab at [address] [address] 10/22/2024 9:40 AM CDT - 10/22/2024 11:59 PM CDT Hospital Encounter [address] [address] History of liver transplant (HCC); Encounter for long-term (current) use of high-risk medication Discharge Disposition: Discharge to home or self care from Last 3 Months Immunizations Immunization Administration Dates Next Due Hep A / Hep B 06/23/2022 Hep B Vaccine 02/17/2024,08/12/2022 Influenza, Quad, Adjuvantated, Intramuscular ,03/08/2020 Influenza, Trivalent, High D ose, Split, Preservative Free, Intramuscular 03/25/2018 Surgical History Surgery Date Site/Laterality Comments US GUIDED BIOPSY LIVER 05/15/2020 N/A LAPAROSCOPIC CHOLECYSTECTOMY COLONOSCOPY EMBOLIZATION ORGAN ISCHEMIA OR INFARCTION 07/22/2021 N/A LIVER RESECTION 08/01/2020 Left XI Liver resection - laparoscopic robotic assisted (Left) EMBOLIZATION ORGAN ISCHEMIA OR INFARCTION 10/01/2022 N/A Medical History Medical History Date Comments Diabetes mellitus (HCC) Hypertension Hepatocellular carcinoma (HCC) Hyperlipidemia Family History Medical History Relation Name Comments Diabetes Brother Anesthesia problems Neg Hx Relation Name Status Comments Brother Father Mother Social History Tobacco Use Types Packs/Day Years Used Date Smoking Tobacco: Former Cigars S tarted: 1965 Passive Smoke Exposure: Never Smokeless Tobacco: Never Tobacco Cessation:Counseling Given: Not Answered Comments:quit x 21 years cigarettes, cigar daily Alcohol Use Standard Drinks/Week Comments [...] than three times a week 11/26/2022 Attends [employer] Not on file 11/26 Active Member [...] place to sleep or slept in a half-way (including now)? No 12/30/2021 Personal Safety Answer [...] on file Sexual Orientation Not on file Obstetrics History Last Filed Vital Signs Vital Sign Reading Time Taken Comments Blood Pressure 179/83 11/28/2024 9:22 AM CDT no headaches or dizziness Pulse 72 11/28/2024 9:22 AM CDT Temperature 36.4 C (97.6 F) 11/28/2024 9:22 AM CDT Respiratory Rate 16 08/24/2023 10:0 0 AM CDT Oxygen Saturation 99% 08/24/2023 10: 00 AM CDT Inhaled Oxygen Concentration - - Weight 78.9 kg (174 lb) 11/28/2024 9:22 AM CDT Height 170.2 cm (5' 7) 11/28/2024 9:22 AM CDT Body Mass Index 27.25 11/28/2024 9:22 AM CDT Plan of Treatment Scheduled Procedures Name Priority Associated Diagnoses Date/Ti me TRANSPLANT LIVER Hepatocellular carcinoma (HCC) Health Maintenance Due Date Last Done Comments Albumin Creatinine Ratio, Urine 1945 Depression Screening 1945 Dilated Eye Exam 1945 Foot Exam 1945 DTaP/Tdap/Td Vaccine (1 - Tdap) 1957 Pneumococcal vaccine 65+ (1 of 2 - PCV) 1965 Zoster Vaccine (1 of 2) 1965 Abdominal Aortic Aneurysm (A AA) Screen 07/31/2011 Well Visit 65+ 07/31/2011 Fall Risk Assessment 11/29/2023 11/28/2022 Covid-19 Vaccine (6 - Modern a risk ) 08/09/2024 02/10/2024, 03/18/2023, 03/23/2021, Additional history exists Influenza Vaccine (#1) 2025 , 03/18/2023, 03/01/2022, Additional history exists Hemoglobin A1C 02/19/2025 08/20/2024, 1208/2022, 01/10/2023, Additional history exists Lipid Panel 03/16/2025 03/16/2024, 0910/2023, 01/06/2024, Additional history exists eGFR 01/15/2026 01/15/2025, /05/2024, 11/20/2024, Additional history exists Hepatitis C Screening Completed 12/29/2022 , 11/24/2022, 11/24/2022, Additional history exists Hepatitis B Screening Completed 02/17/2024 , 11/24/2022, 08/12/2022, Additional history exists Medical Devices Implanted Type Area Nursery Teacher Device Identifier Shelf Expiration Date Model / Serial / Lot Angio-Seal Vip 6fr Closere Device - [id number] Implanted:Qty: 1 on 07/22/2021 at [facility] [employer] 04/21/2022 [id number] / / [id number] [employer] Angio-Seal Vip 6fr Closere Device [id number] - [id number] Implanted:Qty: 1 on 10/01/2022 at [facility] [employer] 04/21/2023 [id number] / / [id number] Procedures Procedure Name Priority Date/Time Associated Diagnosis Comments EGFR Routine 01/15/2025 11:42 AM CDT Liver replaced by transplant DIFFERENTIAL AUTO Routine 01/15/2025 11:42 AM CDT Liver replaced by transplant COMPREHENSIVE METABOLIC PANEL Routine 01/15/2025 11:42 AM CDT Liver replaced by transplant GAMMA GT Routine 01/15/2025 11:42 AM CDT Liver replaced by transplant TACROLIMUS LEVEL, TROUGH Routine 01/15/2025 11:42 AM CDT Liver replaced by transplant EVEROLIMUS LEVEL TROUGH Routine 01/15/2025 11:42 AM CDT Liver replaced by transplant CBC WITH AUTO DIFFERENTIAL Routine 01/15/2025 11:42 AM CDT Liver replaced by transplant EGFR Routine 12/10/2024 11:42 AM CDT History of liver transplant (HCC) Encounter for long-term (current) use of high-risk medication DIFFERENTIAL AUTO Routine 12/10/2024 11:42 AM CDT History of liver transplant (HCC) Encounter for long-term (current) use of high-risk medication COMPREHENSIVE METABOLIC PANEL Routine 12/10/2024 11:42 AM CDT History of liver transplant (HCC) Encounter for long-term (current) use of high-risk medication CBC WITH AUTO DIFFERENTIAL Routine 12/10/2024 11:42 AM CDT History of liver transplant (HCC) Encounter for long-term (current) use of high-risk medication GAMMA GT Routine 12/10/2024 11:42 AM CDT History of liver transplant (HCC) Encounter for long-term (current) use of high-risk medication TACROLIMUS LEVEL, TROUGH Routine 12/10/2024 11:42 AM CDT History of liver transplant (HCC) Encounter for long-term (current) use of high-risk medication EVEROLIMUS LEVEL TROUGH Routine 12/10/2024 11:42 AM CDT History of liver transplant (HCC) Encounter for long-term (current) use of high-risk medication XR CHEST PA LATERAL 2 VIEWS Schedule Routine, Read Routine (OP Routine) 11/28/2024 10:06 AM CDT Subacute cough MRI ABDOMEN W WO CONTRAST Schedule Routine, Read Routine (OP Routine) 11/28/2024 8:57 AM CDT S/P liver transplant (HCC) Hepatocellular carcinoma (HCC) EGFR Routine 11/20/2024 10:56 AM CDT History of liver transplant (HCC) Encounter for long-term (current) use of high-risk medication DIFFERENTIAL AUTO Routine 11/20/2024 10:56 AM CDT History of liver transplant (HCC) Encounter for long-term (current) use of high-risk medication CBC WITH AUTO DIFFERENTIAL Routine 11/20/2024 10:56 AM CDT History of liver transplant (HCC) Encounter for long-term (current) use of high-risk medication GAMMA GT Routine 11/20/2024 10:56 AM CDT History of liver transplant (HCC) Encounter for long-term (current) use of high-risk medication TACROLIMUS LEVEL, TROUGH Routine 11/20/2024 10:56 AM CDT History of liver transplant (HCC) Encounter for long-term (current) use of high-risk medication EVEROLIMUS LEVEL TROUGH Routine 11/20/2024 10:56 AM CDT History of liver transplant (HCC) Encounter for long-term (current) use of high-risk medication COMPREHENSIVE METABOLIC PANEL Routine 11/20/2024 10:56 AM CDT History of liver transplant (HCC) Encounter for long-term (current) use of high-risk medication EGFR Routine 10/22/2024 9:40 AM CDT History of liver transplant (HCC) Encounter for long-term (current) use of high-risk medication DIFFERENTIAL AUTO Routine 10/22/2024 9:4 0 AM CDT History of liver transplant (HCC) Encounter for long-term (current) use of high-risk medication COMPREHENSIVE METABOLIC PANEL Routine 10/22/2024 9:40 AM CDT History of liver transplant (HCC) Encounter for long-term (current) use of high-risk medication CBC WITH AUTO DIFFERENTIAL Routine 10/22/2024 9:40 AM CDT History of liver transplant (HCC) Encounter for long-term (current) use of high-risk medication GAMMA GT Routine 10/22/2024 9:40 AM CDT History of liver transplant (HCC) Encounter for long-term (current) use of high-risk medication TACROLIMUS LEVEL, TROUGH Routine 10/22/2024 9:40 AM CDT History of liver transplant (HCC) Encounter for long-term (current) use of high-risk medication EVEROLIMUS LEVEL TROUGH Routine 10/22/2024 9:40 AM CDT History of liver transplant (HCC) Encounter for long-term (current) use of high-risk medication HEMOGLOBIN A1C Routine 08/20/2024 9:41 AM CDT Diabetes mellitus type II, controlled, with no complications (HCC) LIPID PANEL Routine 03/16/2024 10:26 AM CDT Encounter for long-term (current) use of high-risk medication History of liver transplant (HCC) HEPATITIS C RNA, QUANTITATIVE, PCR Routine 12/29/2022 10:04 AM CDT History of liver transplant (HCC) Exposure to blood or body fluid from Last 3 Months or Most Recently Relevant to Health Maintenance Results * Everolimus level trough (01/15/2025 11:42 AM CDT) [facility] Signature Everolimus trough 1.3 ng/mL Comment: Interpretive Data Testing performed by liquid chromatography-tandem mass spectrometry. Therapeutic concentrations vary depending on type of transplanted organ and time elapsed since transplant. Typical trough concentrations range from 3-8 ng/mL. This test was developed and its performance characteristics determined by the [facility] consistent with CLIA requirements. This test has not been cleared or approved by the [place] Food and Drug administration. Current interpretive data last reviewed 2018. Testing performed by: [facility], [address] [place]., [address] Blood 01/15/2025 11:4 2 AM CDT 01/15/2025 6:28 PM CDT Wiliam Callaway MD LAB BLOOD ORDERABLES Final Result Performing Organization Address City/[facility] Co de Phone Number AT[facility] [address] [place] [address] * (ABNORMAL) eGFR (01/15/2025 11:42 AM CDT) eGFR 56(L) >=60 mL/min/1. 73 m2 Comment: Interpretive Data Reference Interval Normal >/= 90 mL/min/1.73m2 Mildly decreased* 60 - 89 mL/min/1.73m2 Mildly to moderately decreased 45 - 59 mL/min/1.73m2 Moderately to severely decreased 30 - 44 mL/min/1.73m2 Severely decreased 15 - 29 mL/min/1.73m2 Kidney Failure < 15 mL/min/1.73m2 *Relative to young adult level Estimated glomerular filtration rate is determined by the 2020 CKD-EPI equation recommended by the National Kidney Foundation (A Unifying Approach to GFR Estimation: Recommendations of the NKF-ASK Task Force on Reassessing the Inclusion of Race in Diagnosing Kidney Disease, JASN 2020). The CKD-EPI equation should not be used for patients with unstable renal function and has not been validated in children and those over 70. Current interpretive data was last reviewed 2021. Blood 01/15/2025 11:4 2 AM CDT 01/15/2025 2:42 PM CDT us Wiliam Callaway MD LAB BLOOD ORDERABLES Final Result [facility] [address] [facility] Department [place] [address] * Differential, auto (01/15/2025 11:42 AM CDT) Neutrophil abs 2.69 1.50 - 6.50 K/cumm Imm gran abs 0.01 0.00 - 0.10 K/cumm [facility] Lymphocyte abs 1.08 0.80 - 3.30 K/cumm [facility] Monocyte abs 0.60 0.20 - 0.80 K/cumm [facility] Eosinophil abs 0.12 0.00 - 0.50 K/cumm [facility] Basophil abs 0.04 0.00 - 0.10 K/cumm [facility] Neutrophil pct 59.3 % [facility] Comment: Interpretive Data Percent cell count reference ranges are not reported, since discordance with absolute values may lead to misinterpretation of CBC data. Current Interpretive Data was last revised on 2017. Imm gran pct 0.2 % [facility] Comment: Interpretive Data Percent cell count reference ranges are not reported, since discordance with absolute values may lead to misinterpretation of CBC data. Current Interpretive Data was last revised on 2017. Lymphocyte pct 23.8 % [facility] Comment: Interpretive Data Percent cell count reference ranges are not reported, since discordance with absolute values may lead to misinterpretation of CBC data. Current Interpretive Data was last revised on 2017. Monocyte pct 13.2 % [facility] Comment: Interpretive Data Percent cell count reference ranges are not reported, since discordance with absolute values may lead to misinterpretation of CBC data. Current Interpretive Data was last revised on 2017. Eosinophil pct 2.6 % [facility] Comment: Interpretive Data Percent cell count reference ranges are not reported, since discordance with absolute values may lead to misinterpretation of CBC data. Current Interpretive Data was last revised on 2017. Basophil pct 0.9 % [facility] Comment: Interpretive Data Percent cell count reference ranges are not reported, since discordance with absolute values may lead to misinterpretation of CBC data. Current Interpretive Data was last revised on 2017. Blood 01/15/2025 11:4 2 AM CDT 01/15/2025 2:43 PM CDT Wiliam Callaway MD LAB BLOOD ORDERABLES Final Result Performing Organization Address [facility] Co de Phone Number [facility] [address] [place] [address] * Tacrolimus level trough (01/15/2025 11:42 AM CDT) [facility] Tacrolimus trough 3.0 ng/mL Comment: Interpretive Data Testing performed by liquid chromatography-tandem mass spectrometry. Therapeutic concentrations vary depending on type of transplanted organ and time elapsed since transplant. Typical trough concentrations range from 5-15 ng/mL. This test was developed and its performance characteristics determined by the [facility] consistent with CLIA requirements. This test has not been cleared or approved by the [place] Food and Drug administration. Current interpretive data last reviewed 2019. Testing performed by: [facility], [address] [place]., [address] Blood 01/15/2025 11:4 2 AM CDT 01/15/2025 6:28 PM CDT Wiliam Callaway MD LAB BLOOD ORDERABLES Final Result Performing Organization Address [facility] de Phone Number [facility] [address] [place] [address] * (ABNORMAL) CBC with auto differential (01/15/2025 11:42 AM CDT) [facility] WBC 4.54 3.80 - 9.90 K/cumm Hgb 12.4(L) 13.0 - 17.5 g/dL [facility] Hct 38.2(L) 38.9 - 50.3 % [facility] Plt 350 150 - 400 K/cumm [facility] MPV 8.8(L) 9.1 - 12.3 fL [facility] RBC 4.48 4.30 - 5.80 M/cumm [facility] MCV 85.3 81.3 - 96.4 fL [facility] MCH 27.7 27.1 - 33.3 pg [facility] MCHC 32.5 32.3 - 35.7 g/dL [facility] RDW CV 13.8 11.1 - 14.9 % [facility] RDW SD 42.5 35.7 - 48.1 fL [facility] NRBC abs 0.00 0.00 - 0.01 K/cumm [facility] Blood 01/15/2025 11:4 2 AM CDT 01/15/2025 2:43 PM CDT Wiliam Callaway MD LAB BLOOD ORDERABLES Final Result [address] [place] [address] * Gamma GT (01/15/2025 11:42 AM CDT) Pathologist [facility] GGT 21 10 - 50 Units/L Blood Venous blood specimen / Unknown 01/15/2025 11:42 AM CDT 01/15/2025 2:42 PM CDT Wiliam Callaway MD LAB BLOOD ORDERABLES Final Result Performing Organization Address City/[facility]/ZIP Co de Phone Number [address] [place] [address] * Comprehensive metabolic panel (01/15/2025 11:42 AM CDT) [facility] Sodium 135 135 - 145 mmol/L Potassium, pl 4.7 3.3 - 4.9 mmol/L [facility] Chloride 100 97 - 110 mmol/L [facility] CO2 24 22 - 32 mmol/L [facility] Anion gap 11 2 - 15 mmol/L [facility] BUN 22 6 - 25 mg/dL [facility] Creatinine 1.30 0.80 - 1.30 mg/dL [facility] Glucose 161 70 - 199 mg/dL [facility] Comment: Interpretive Data Fasting glucose >/= 126 mg/dl is diagnostic for diabetes. Fasting is defined as no caloric intake for at least 8 hours. Fasting glucose between 100 mg/dl to 125 mg/dl is diagnostic of prediabetes. In a patient with classic symptoms of hyperglycemia or hyperglycemic crisis, a random glucose >/= 200 mg/dl is diagnostic for diabetes. In the absence of unequivocal hyperglycemia, results should be confirmed by repeat testing. The classification and Diagnosis of Diabetes Diabetes Care 202; 46: S19-S40. Current interpretive data was last revised 2022. Calcium 9.2 8.5 - 10.3 mg/dL [facility] Bilirubin, total 0.3 0.1 - 1.2 mg/dL [facility] Protein, pl 7.6 6.5 - 8.5 g/dL [facility] Albumin 4.4 3.5 - 5.0 g/dL [facility] Alk phos 71 40 - 130 Units/L [facility] ALT 14 7 - 55 Units/L [facility] AST 19 10 - 50 Units/L [facility] Blood Venous blood specimen / Unknown 01/15/2025 11:42 AM CDT 01/15/2025 2:42 PM CDT Wiliam Callaway MD LAB BLOOD ORDERABLES Final Result [facility] [address] [facility] [place] [address] * Everolimus level trough (12/10/2024 11:42 AM CDT) [facility] Everolimus trough 1.0 ng/mL Comment: Interpretive Data Testing performed by liquid chromatography-tandem mass spectrometry. Therapeutic concentrations vary depending on type of transplanted organ and time elapsed since transplant. Typical trough concentrations range from 3-8 ng/mL. This test was developed and its performance characteristics determined by the [facility] consistent with CLIA requirements. This test has not been cleared or approved by the US Food and Drug administration. Current interpretive data last reviewed 2018. Testing performed by: [facility], [address] [facility] [place] [address] Blood 12/10/2024 11:4 2 AM CDT 12/10/2024 6:50 PM CDT Wiliam aCllaway MD LAB BLOOD ORDERABLES Final Result [facility] [address] [place] [address] * eGFR (12/10/2024 11:42 AM CDT) eGFR 60 >=60 mL/min/1. 73 m2 Comment: Interpretive Data Reference Interval Normal >/= 90 mL/min/1.73m2 Mildly decreased* 60 - 89 mL/min/1.73m2 Mildly to moderately decreased 45 - 59 mL/min/1.73m2 Moderately to severely decreased 30 - 44 mL/min/1.73m2 Severely decreased 15 - 29 mL/min/1.73m2 Kidney Failure < 15 mL/min/1.73m2 *Relative to young adult level Estimated glomerular filtration rate is determined by the 2020 CKD-EPI equation recommended by the National Kidney Foundation (A Unifying Approach to GFR Estimation: Recommendations of the NKF-ASK Task Force on Reassessing the Inclusion of Race in Diagnosing Kidney Disease, JASN 2020). The CKD-EPI equation should not be used for patients with unstable renal function and has not been validated in children and those over 70. Current interpretive data was last reviewed 2021. Blood 12/10/2024 11:4 2 AM CDT 12/10/2024 4:23 PM CDT Wiliam Callaway MD LAB BLOOD ORDERABLES Final Result Performing Organization Address City/[facility]/ZIP Co de Phone Number [facility] [address] [place] [address] * Differential, auto (12/10/2024 11:42 AM CDT) Neutrophil abs 3.24 1.50 - 6.50 K/cumm Imm gran abs 0.03 0.00 - 0.10 K/cumm [facility] Lymphocyte abs 1.20 0.80 - 3.30 K/cumm [facility] Monocyte abs 0.58 0.20 - 0.80 K/cumm [facility] Eosinophil abs 0.14 0.00 - 0.50 K/cumm [facility] Basophil abs 0.04 0.00 - 0.10 K/cumm [facility] Neutrophil pct 61.9 % [facility] Comment: Interpretive Data Percent cell count reference ranges are not reported, since discordance with absolute values may lead to misinterpretation of CBC data. Current Interpretive Data was last revised on 2017. Imm gran pct 0.6 % [facility] Comment: Interpretive Data Percent cell count reference ranges are not reported, since discordance with absolute values may lead to misinterpretation of CBC data. Current Interpretive Data was last revised on 2017. Lymphocyte pct 22.9 % [facility] Comment: Interpretive Data Percent cell count reference ranges are not reported, since discordance with absolute values may lead to misinterpretation of CBC data. Current Interpretive Data was last revised on 2017. Monocyte pct 11.1 % [facility] Comment: Interpretive Data Percent cell count reference ranges are not reported, since discordance with absolute values may lead to misinterpretation of CBC data. Current Interpretive Data was last revised on 2017. Eosinophil pct 2.7 % [facility] Comment: Interpretive Data Percent cell count reference ranges are not reported, since discordance with absolute values may lead to misinterpretation of CBC data. Current Interpretive Data was last revised on 2017. Basophil pct 0.8 % [facility] Comment: Interpretive Data Percent cell count reference ranges are not reported, since discordance with absolute values may lead to misinterpretation of CBC data. Current Interpretive Data was last revised on 2017. Blood 12/10/2024 11:4 2 AM CDT 12/10/2024 3:03 PM CDT us Wiliam Callaway MD LAB BLOOD ORDERABLES Final Result [facility] [address] [place] [address] * Tacrolimus level trough (12/10/2024 11:42 AM CDT) Tacrolimus trough 5.5 ng/mL Comment: Interpretive Data Testing performed by liquid chromatography-tandem mass spectrometry. Therapeutic concentrations vary depending on type of transplanted organ and time elapsed since transplant. Typical trough concentrations range from 5-15 ng/mL. This test was developed and its performance characteristics determined by the [facility] consistent with CLIA requirements. This test has not been cleared or approved by the US Food and Drug administration. Current interpretive data last reviewed 2019. Testing performed by: [facility], [address] [place]., [address] Blood 12/10/2024 11:4 2 AM CDT 12/10/2024 6:50 PM CDT Wiliam Callaway MD LAB BLOOD ORDERABLES Final Result [facility] [address] [place] [address] * (ABNORMAL) CBC with auto differential (12/10/2024 11:42 AM CDT) Pathologist [facility] WBC 5.23 3.80 - 9.90 K/cumm Hgb 12.5(L) 13.0 - 17.5 g/dL [facility] Hct 38.5(L) 38.9 - 50.3 % [facility] Plt 368 150 - 400 K/cumm [facility] MPV 8.6(L) 9.1 - 12.3 fL [facility] RBC 4.59 4.30 - 5.80 M/cumm [facility] MCV 83.9 81.3 - 96.4 fL [facility] MCH 27.2 27.1 - 33.3 pg [facility] MCHC 32.5 32.3 - 35.7 g/dL [facility] RDW CV 12.6 11.1 - 14.9 % [facility] CH RDW SD 37.8 35.7 - 48.1 fL [facility] NRBC abs 0.00 0.00 - 0.01 K/cumm [facility] Blood 12/10/2024 11:4 2 AM CDT 12/10/2024 3:03 PM CDT us Wiliam Callaway MD LAB BLOOD ORDERABLES Final Result Performing Organization Address City/[facility]/ZIP Co de Phone Number [facility] [address] [place] [address] * Gamma GT (12/10/2024 11:42 AM CDT) GGT 20 10 - 50 Units/L Blood 12/10/2024 11:4 2 AM CDT 12/10/2024 3:03 PM CDT Wiliam Callaway MD LAB BLOOD ORDERABLES Final Result Performing Organization Address [facility] de Phone Number [facility] [address] [place] [address] * Comprehensive metabolic panel (12/10/2024 11:42 AM CDT) Pathologist [facility] Sodium 138 135 - 145 mmol/L Potassium, pl 4.5 3.3 - 4.9 mmol/L [facility] Chloride 101 97 - 110 mmol/L [facility] CO2 24 22 - 32 mmol/L [facility] Anion gap 13 2 - 15 mmol/L [facility] BUN 21 6 - 25 mg/dL [facility] Creatinine 1.23 0.80 - 1.30 mg/dL [facility] Glucose 167 70 - 199 mg/dL [facility] Comment: Interpretive Data Fasting glucose >/= 126 mg/dl is diagnostic for diabetes. Fasting is defined as no caloric intake for at least 8 hours. Fasting glucose between 100 mg/dl to 125 mg/dl is diagnostic of prediabetes. In a patient with classic symptoms of hyperglycemia or hyperglycemic crisis, a random glucose >/= 200 mg/dl is diagnostic for diabetes. In the absence of unequivocal hyperglycemia, results should be confirmed by repeat testing. The classification and Diagnosis of Diabetes Diabetes Care 202; 46: S19-S40. Current interpretive data was last revised 2022. Calcium 9.2 8.5 - 10.3 mg/dL [facility] Bilirubin, total 0.3 0.1 - 1.2 mg/dL [facility] Protein, pl 7.9 6.5 - 8.5 g/dL [facility] Albumin 4.3 3.5 - 5.0 g/dL [facility] Alk phos 74 40 - 130 Units/L [facility] ALT 17 7 - 55 Units/L [facility] AST 18 10 - 50 Units/L [facility] Blood 12/10/2024 11:4 2 AM CDT 12/10/2024 3:03 PM CDT Wiliam Callaway MD LAB BLOOD ORDERABLES Final Result [facility] [address] [place] [address] * XR Chest PA Lateral 2 Views (11/28/2024 10:06 AM CDT) Anatomical Region Laterality Modality Body, Chest N/A Computed Radiogr aphy 11/28/2024 10:1 3 AM CDT Impressions 11/28/2024 10:13 AM CDT Comparison is made to 11/24/2022. The endotracheal tube and right jugular catheter has been removed. There is improved aeration in the lung bases. No focal pneumonic consolidation, effusion, or pneumothorax. The heart size is stable. Electronically signed by: Tate Saul M.D. Narrative 11/28/2024 10:13 AM CDT EXAMINATION: 2 view chest radiograph Procedure Note Tate Saul MD - 11/28/2024 EXAMINATION: 2 view chest radiograph IMPRESSION: Comparison is made to 11/24/2022. The endotracheal tube and right jugular catheter has been removed. There is improved aeration in the lung bases. No focal pneumonic consolidation, effusion, or pneumothorax. The heart size is stable. Electronically signed by: Tate Saul M.D. Wiliam Callaway MD IMG XR PROCEDURES Final Re sult * MRI Abdomen W WO Contrast (11/28/2024 8:57 AM CDT) Anatomical Region Laterality Modality Body N/A Magnetic Resonan ce 11/28/2024 11:2 0 AM CDT Impressions 11/28/2024 5:25 PM CDT Postsurgical changes related to liver transplantation. No focal suspicious hepatic lesion. Dictated by: Susan Weeks M.D. The radiology attending physician has personally reviewed this study, and had reviewed and/or edited this written report and agrees with it. Electronically signed by: Reese Palumbo M.D. Narrative 11/28/2024 5:25 PM CDT EXAMINATION: MAGNETIC RESONANCE IMAGING OF THE ABDOMEN WITH AND WITHOUT CONTRAST HISTORY: 79-year-old male with hepatocellular carcinoma status post transplant on 11/24/2022. Surveillance imaging. TECHNIQUE: Magnetic resonance imaging of the abdomen was performed prior to and following the uneventful administration of intravenous contrast. Protocol: Liver Contrast: Dotarem (gadoterate) 14 mL COMPARISON: Multiple prior MRIs with the most recent dated 11/23/2023 FINDINGS: Liver: No hepatic steatosis or iron deposition. Postoperative changes of liver transplantation. - Bile ducts: Mild dilation of the cystic duct remnant. Duct to duct anastomosis. No intrahepatic or extrahepatic biliary ductal dilation. - Focal liver lesions: No focal suspicious hepatic lesion. - Vasculature: Portal and hepatic veins are patent. Hepatic arterial anastomosis is patent. Mild atherosclerotic calcifications within the abdominal aorta. No aneurysm. Gallbladder: Surgically absent. Pancreas: A couple of stable tiny cystic lesions measuring up to 4 mm in the pancreatic body/tail, likely side branch intraductal papillary mucinous neoplasms (series 2, image 19). No main pancreatic ductal dilation. No solid pancreatic lesion. Spleen: Mild iron deposition. Adrenals: Unremarkable. Kidneys: A couple of T2 hyperintense cysts, some of which have a few thin internal enhancing septations. One of the left interpolar cyst has T1 hyperintense layering debris. Compatible with Bosniak I/II cyst. Right peripelvic renal cyst. No hydronephrosis. Other Findings: No suspicious pulmonary nodules. No ascites. No abdominal lymphadenopathy. Multilevel degenerative changes in the imaged spine. Levocurvature of the lumbar spine. Scattered colonic diverticulosis without evidence of diverticulitis. Susceptibility artifact along the anterior abdominal wall likely related to prior surgical procedure. Procedure Note Reese Palumbo MD - 11/28/2024 EXAMINATION: MAGNETIC RESONANCE IMAGING OF THE ABDOMEN WITH AND WITHOUT CONTRAST HISTORY: 79-year-old male with hepatocellular carcinoma status post transplant on 11/24/2022. Surveillance imaging. TECHNIQUE: Magnetic resonance imaging of the abdomen was performed prior to and following the uneventful administration of intravenous contrast. Protocol: Liver Contrast: Dotarem (gadoterate) 14 mL COMPARISON: Multiple prior MRIs with the most recent dated 11/23/2023 FINDINGS: Liver: No hepatic steatosis or iron deposition. Postoperative changes of liver transplantation. - Bile ducts: Mild dilation of the cystic duct remnant. Duct to duct anastomosis. No intrahepatic or extrahepatic biliary ductal dilation. - Focal liver lesions: No focal suspicious hepatic lesion. - Vasculature: Portal and hepatic veins are patent. Hepatic arterial anastomosis is patent. Mild atherosclerotic calcifications within the abdominal aorta. No aneurysm. Gallbladder: Surgically absent. Pancreas: A couple of stable tiny cystic lesions measuring up to 4 mm in the pancreatic body/tail, likely side branch intraductal papillary mucinous neoplasms (series 2, image 19). No main pancreatic ductal dilation. No solid pancreatic lesion. Spleen: Mild iron deposition. Adrenals: Unremarkable. Kidneys: A couple of T2 hyperintense cysts, some of which have a few thin internal enhancing septations. One of the left interpolar cyst has T1 hyperintense layering debris. Compatible with Bosniak I/II cyst. Right peripelvic renal cyst. No hydronephrosis. Other Findings: No suspicious pulmonary nodules. No ascites. No abdominal lymphadenopathy. Multilevel degenerative changes in the imaged spine. Levocurvature of the lumbar spine. Scattered colonic diverticulosis without evidence of diverticulitis. Susceptibility artifact along the anterior abdominal wall likely related to prior surgical procedure. IMPRESSION: Postsurgical changes related to liver transplantation. No focal suspicious hepatic lesion. Dictated by: Susan Weeks M.D. The radiology attending physician has personally reviewed this study, and had reviewed and/or edited this written report and agrees with it. Electronically signed by: Reese Palumbo M.D. Lynsey Lima MD IMG MRI PROCEDURES F inal Result * Everolimus level trough (11/20/2024 10:56 AM CDT) Everolimus trough 4.4 ng/mL Comment: Interpretive Data Testing performed by liquid chromatography-tandem mass spectrometry. Therapeutic concentrations vary depending on type of transplanted organ and time elapsed since transplant. Typical trough concentrations range from 3-8 ng/mL. This test was developed and its performance characteristics determined by the [facility] consistent with CLIA requirements. This test has not been cleared or approved by the US Food and Drug administration. Current interpretive data last reviewed 2018. Testing performed by: [facility], [address] [place]., [address] Blood 11/20/2024 10:5 6 AM CDT 11/20/2024 9:23 PM CDT us Wiliam Callaway MD LAB BLOOD ORDERABLES Final Result [facility] [address] [place] [address] * eGFR (11/20/2024 10:56 AM CDT) eGFR 63 >=60 mL/min/1. 73 m2 Comment: Interpretive Data Reference Interval Normal >/= 90 mL/min/1.73m2 Mildly decreased* 60 - 89 mL/min/1.73m2 Mildly to moderately decreased 45 - 59 mL/min/1.73m2 Moderately to severely decreased 30 - 44 mL/min/1.73m2 Severely decreased 15 - 29 mL/min/1.73m2 Kidney Failure < 15 mL/min/1.73m2 *Relative to young adult level Estimated glomerular filtration rate is determined by the 2020 CKD-EPI equation recommended by the National Kidney Foundation (A Unifying Approach to GFR Estimation: Recommendations of the NKF-ASK Task Force on Reassessing the Inclusion of Race in Diagnosing Kidney Disease, JASN 202). The CKD-EPI equation should not be used for patients with unstable renal function and has not been validated in children and those over 70. Current interpretive data was last reviewed 2021. Blood 11/20/2024 10:5 6 AM CDT 11/20/2024 7:24 PM CDT us Wiliam Callaway MD LAB BLOOD ORDERABLES Final Result [facility] [address] [place] [address] * Differential, auto (11/20/2024 10:56 AM CDT) Neutrophil abs 3.56 1.50 - 6.50 K/cumm Imm gran abs 0.01 0.00 - 0.10 K/cumm [facility] Lymphocyte abs 1.01 0.80 - 3.30 K/cumm [facility] Monocyte abs 0.62 0.20 - 0.80 K/cumm [facility] Eosinophil abs 0.19 0.00 - 0.50 K/cumm [facility] Basophil abs 0.03 0.00 - 0.10 K/cumm [facility] Neutrophil pct 65.7 % [facility] Comment: Interpretive Data Percent cell count reference ranges are not reported, since discordance with absolute values may lead to misinterpretation of CBC data. Current Interpretive Data was last revised on 2017. Imm gran pct 0.2 % [facility] Comment: Interpretive Data Percent cell count reference ranges are not reported, since discordance with absolute values may lead to misinterpretation of CBC data. Current Interpretive Data was last revised on 2017. Lymphocyte pct 18.6 % [facility] Comment: Interpretive Data Percent cell count reference ranges are not reported, since discordance with absolute values may lead to misinterpretation of CBC data. Current Interpretive Data was last revised on 2017. Monocyte pct 11.4 % [facility] Comment: Interpretive Data Percent cell count reference ranges are not reported, since discordance with absolute values may lead to misinterpretation of CBC data. Current Interpretive Data was last revised on 2017. Eosinophil pct 3.5 % [facility] Comment: Interpretive Data Percent cell count reference ranges are not reported, since discordance with absolute values may lead to misinterpretation of CBC data. Current Interpretive Data was last revised on 2017. Basophil pct 0.6 % [facility] Comment: Interpretive Data Percent cell count reference ranges are not reported, since discordance with absolute values may lead to misinterpretation of CBC data. Current Interpretive Data was last revised on 2017. Blood 11/20/2024 10:5 6 AM CDT 11/20/2024 6:52 PM CDT Wiliam Callaway MD LAB BLOOD ORDERABLES Final Result Performing Organization Address [facility] de Phone Number [facility] [address] [place] [address] * Tacrolimus level trough (11/20/2024 10:56 AM CDT) Tacrolimus trough 5.0 ng/mL Comment: Interpretive Data Testing performed by liquid chromatography-tandem mass spectrometry. Therapeutic concentrations vary depending on type of transplanted organ and time elapsed since transplant. Typical trough concentrations range from 5-15 ng/mL. This test was developed and its performance characteristics determined by the [facility] consistent with CLIA requirements. This test has not been cleared or approved by the US Food and Drug administration. Current interpretive data last reviewed 2019. Testing performed by: [facility], [address] [facility], [place]., [address] Blood 11/20/2024 10:5 6 AM CDT 11/20/2024 9:23 PM CDT Wiliam Callaway MD LAB BLOOD ORDERABLES Final Result Performing Organization Address [facility] de Phone Number [facility] [address] [place] [address] * (ABNORMAL) CBC with auto differential (11/20/2024 10:56 AM CDT) WBC 5.42 3.80 - 9.90 K/cumm Hgb 12.1(L) 13.0 - 17.5 g/dL [facility] Hct 39.2 38.9 - 50.3 % [facility] Plt 307 150 - 400 K/cumm [facility] MPV 8.8(L) 9.1 - 12.3 fL [facility] RBC 4.51 4.30 - 5.80 M/cumm [facility] MCV 86.9 81.3 - 96.4 fL [facility] MCH 26.8(L) 27.1 - 33.3 pg [facility] MCHC 30.9(L) 32.3 - 35.7 g/dL [facility] RDW CV 13.0 11.1 - 14.9 % [facility] RDW SD 41.0 35.7 - 48.1 fL [facility] NRBC abs 0.00 0.00 - 0.01 K/cumm [facility] Blood 11/20/2024 10:5 6 AM CDT 11/20/2024 6:52 PM CDT Wiliam Callaway MD LAB BLOOD ORDERABLES Final Result Performing Organization Address [facility] Co de Phone Number [facility] [address] [facility] [place] [address] * Gamma GT (11/20/2024 10:56 AM CDT) GGT 19 10 - 50 Units/L Blood 11/20/2024 10:5 6 AM CDT 11/20/2024 6:51 PM CDT Wiliam Callaway MD LAB BLOOD ORDERABLES Final Result Performing Organization Address [facility] Co de Phone Number [facility] [address] [place] [address] * (ABNORMAL) Comprehensive metabolic panel (11/20/2024 10:56 AM CDT) Sodium 136 135 - 145 mmol/L Potassium, pl 4.6 3.3 - 4.9 mmol/L [facility] Chloride 102 97 - 110 mmol/L [facility] CO2 23 22 - 32 mmol/L [facility] Anion gap 11 2 - 15 mmol/L [facility] BUN 22 6 - 25 mg/dL [facility] Creatinine 1.18 0.80 - 1.30 mg/dL [facility] Glucose 293(H) 70 - 199 mg/dL [facility] Comment: Interpretive Data Fasting glucose >/= 126 mg/dl is diagnostic for diabetes. Fasting is defined as no caloric intake for at least 8 hours. Fasting glucose between 100 mg/dl to 125 mg/dl is diagnostic of prediabetes. In a patient with classic symptoms of hyperglycemia or hyperglycemic crisis, a random glucose >/= 200 mg/dl is diagnostic for diabetes. In the absence of unequivocal hyperglycemia, results should be confirmed by repeat testing. The classification and Diagnosis of Diabetes Diabetes Care 202; 46: S19-S40. Current interpretive data was last revised 2022. Calcium 8.9 8.5 - 10.3 mg/dL [facility] Bilirubin, total 0.3 0.1 - 1.2 mg/dL [facility] Protein, pl 7.3 6.5 - 8.5 g/dL [facility] Albumin 4.0 3.5 - 5.0 g/dL [facility] Alk phos 77 40 - 130 Units/L [facility] ALT 16 7 - 55 Units/L [facility] AST 23 10 - 50 Units/L [facility] Blood 11/20/2024 10:5 6 AM CDT 11/20/2024 6:51 PM CDT Wiliam Callaway MD LAB BLOOD ORDERABLES Final Result [facility] [address] [place] [address] * Everolimus level trough (10/22/2024 9:40 AM CDT) [facility] Everolimus trough 3.4 ng/mL Comment: Interpretive Data Testing performed by liquid chromatography-tandem mass spectrometry. Therapeutic concentrations vary depending on type of transplanted organ and time elapsed since transplant. Typical trough concentrations range from 3-8 ng/mL. This test was developed and its performance characteristics determined by the [facility] consistent with CLIA requirements. This test has not been cleared or approved by the US Food and Drug administration. Current interpretive data last reviewed 2018. Testing performed by: [facility], [address] [place]., [address] Blood 10/22/2024 9:40 AM CDT 10/22/2024 8:08 PM CDT us Wiliam Callaway MD LAB BLOOD ORDERABLES Final Result Performing Organization Address [facility] Co de Phone Number [facility] [address] [place] [address] * eGFR (10/22/2024 9:40 AM CDT) eGFR 63 >=60 mL/min/1. 73 m2 Comment: Interpretive Data Reference Interval Normal >/= 90 mL/min/1.73m2 Mildly decreased* 60 - 89 mL/min/1.73m2 Mildly to moderately decreased 45 - 59 mL/min/1.73m2 Moderately to severely decreased 30 - 44 mL/min/1.73m2 Severely decreased 15 - 29 mL/min/1.73m2 Kidney Failure < 15 mL/min/1.73m2 *Relative to young adult level Estimated glomerular filtration rate is determined by the 2020 CKD-EPI equation recommended by the National Kidney Foundation (A Unifying Approach to GFR Estimation: Recommendations of the NKF-ASK Task Force on Reassessing the Inclusion of Race in Diagnosing Kidney Disease, JASN 2020). The CKD-EPI equation should not be used for patients with unstable renal function and has not been validated in children and those over 70. Current interpretive data was last reviewed 2021. Blood 10/22/2024 9:40 AM CDT 10/22/2024 4:23 PM CDT us Wiliam Callaway MD LAB BLOOD ORDERABLES Final Result Performing Organization Address City/[facility]/ZIP Co de Phone Number [facility] [address] [place] [address] * Differential, auto (10/22/2024 9:40 AM CDT) Neutrophil abs 1.95 1.50 - 6.50 K/cumm Imm gran abs 0.01 0.00 - 0.10 K/cumm [facility] Lymphocyte abs 0.96 0.80 - 3.30 K/cumm [facility] Monocyte abs 0.50 0.20 - 0.80 K/cumm [facility] Eosinophil abs 0.11 0.00 - 0.50 K/cumm [facility] Basophil abs 0.05 0.00 - 0.10 K/cumm [facility] Neutrophil pct 54.4 % [facility] Comment: Interpretive Data Percent cell count reference ranges are not reported, since discordance with absolute values may lead to misinterpretation of CBC data. Current Interpretive Data was last revised on 2017. Imm gran pct 0.3 % [facility] Comment: Interpretive Data Percent cell count reference ranges are not reported, since discordance with absolute values may lead to misinterpretation of CBC data. Current Interpretive Data was last revised on 2017. Lymphocyte pct 26.8 % [facility] Comment: Interpretive Data Percent cell count reference ranges are not reported, since discordance with absolute values may lead to misinterpretation of CBC data. Current Interpretive Data was last revised on 2017. Monocyte pct 14.0 % [facility] Comment: Interpretive Data Percent cell count reference ranges are not reported, since discordance with absolute values may lead to misinterpretation of CBC data. Current Interpretive Data was last revised on 2017. Eosinophil pct 3.1 % [facility] Comment: Interpretive Data Percent cell count reference ranges are not reported, since discordance with absolute values may lead to misinterpretation of CBC data. Current Interpretive Data was last revised on 2017. Basophil pct 1.4 % [facility] Comment: Interpretive Data Percent cell count reference ranges are not reported, since discordance with absolute values may lead to misinterpretation of CBC data. Current Interpretive Data was last revised on 2017. Blood 10/22/2024 9:40 AM CDT 10/22/2024 3:22 PM CDT us Wiliam Callaway MD LAB BLOOD ORDERABLES Final Result [facility] [address] Department [place] [address] * Tacrolimus level trough (10/22/2024 9:40 AM CDT) Pathologist [facility] Tacrolimus trough 2.8 ng/mL Comment: Interpretive Data Testing performed by liquid chromatography-tandem mass spectrometry. Therapeutic concentrations vary depending on type of transplanted organ and time elapsed since transplant. Typical trough concentrations range from 5-15 ng/mL. This test was developed and its performance characteristics determined by the [facility] consistent with CLIA requirements. This test has not been cleared or approved by the [place] Food and Drug administration. Current interpretive data last reviewed 2019. Testing performed by: [facility], [address] [place]., [address] Blood 10/22/2024 9:40 AM CDT 10/22/2024 8:08 PM CDT Wiliam Callaway MD LAB BLOOD ORDERABLES Final Result [facility] [address] [place] [address] * (ABNORMAL) CBC with auto differential (10/22/2024 9:40 AM CDT) [facility] WBC 3.58(L) 3.80 - 9.90 K/cumm Hgb 12.9(L) 13.0 - 17.5 g/dL [facility] Hct 40.1 38.9 - 50.3 % [facility] Plt 329 150 - 400 K/cumm [facility] MPV 8.7(L) 9.1 - 12.3 fL [facility] RBC 4.64 4.30 - 5.80 M/cumm [facility] MCV 86.4 81.3 - 96.4 fL [facility] MCH 27.8 27.1 - 33.3 pg [facility] MCHC 32.2(L) 32.3 - 35.7 g/dL [facility] RDW CV 13.8 11.1 - 14.9 % [facility] RDW SD 43.6 35.7 - 48.1 fL [facility] NRBC abs 0.00 0.00 - 0.01 K/cumm [facility] Blood 10/22/2024 9:40 AM CDT 10/22/2024 3:22 PM CDT us Wiliam Callaway MD LAB BLOOD ORDERABLES Final Result Performing Organization Address [facility] Co de Phone Number [facility] [address] [facility] [place] [address] * Gamma GT (10/22/2024 9:40 AM CDT) GGT 28 10 - 50 Units/L Blood 10/22/2024 9:40 AM CDT 10/22/2024 3:22 PM CDT us Wiliam aCllaway MD LAB BLOOD ORDERABLES Final Result Performing Organization Address [facility] de Phone Number [facility] [address] [facility] [place] [address] * Comprehensive metabolic panel (10/22/2024 9:40 AM CDT) Sodium 140 135 - 145 mmol/L Potassium, pl 4.3 3.3 - 4.9 mmol/L [facility] Chloride 105 97 - 110 mmol/L [facility] CO2 24 22 - 32 mmol/L [facility] Anion gap 11 2 - 15 mmol/L [facility] BUN 23 6 - 25 mg/dL [facility] Creatinine 1.18 0.80 - 1.30 mg/dL [facility] Glucose 195 70 - 199 mg/dL [facility] Comment: Interpretive Data Fasting glucose >/= 126 mg/dl is diagnostic for diabetes. Fasting is defined as no caloric intake for at least 8 hours. Fasting glucose between 100 mg/dl to 125 mg/dl is diagnostic of prediabetes. In a patient with classic symptoms of hyperglycemia or hyperglycemic crisis, a random glucose >/= 200 mg/dl is diagnostic for diabetes. In the absence of unequivocal hyperglycemia, results should be confirmed by repeat testing. The classification and Diagnosis of Diabetes Diabetes Care 202; 46: S19-S40. Current interpretive data was last revised 2022. Calcium 8.8 8.5 - 10.3 mg/dL [facility] Bilirubin, total 0.2 0.1 - 1.2 mg/dL [facility] Protein, pl 7.4 6.5 - 8.5 g/dL [facility] Albumin 4.2 3.5 - 5.0 g/dL [facility] Alk phos 70 40 - 130 Units/L [facility] ALT 12 7 - 55 Units/L [facility] AST 19 10 - 50 Units/L [facility] Blood 10/22/2024 9:40 AM CDT 10/22/2024 3:22 PM CDT Wiliam Callaway MD LAB BLOOD ORDERABLES Final Result Performing Organization Address [facility] Co de Phone Number [facility] [address] [place] [address] * (ABNORMAL) Hemoglobin A1c (08/20/2024 9:41 AM CDT) [facility] Hgb A1C 9.3(H) 4.0 - 5.6 % Estimated Average Glucose 220 mg/dL [facility] Comment: The ADA recommends reporting an estimated Average Glucose (eAG) with all Hemoglobin A1c results using the equation derived from a study of 507 normal and diabetic adults. Minority populations were underrepresented and children were not included. (Diabetes Care 31:0258-5299, 2008). The eAG is not equivalent to a fasting glucose. Blood Venous blood specimen / Unknown 08/20/2024 9:41 AM CDT 08/20/2024 10:50 PM CDT Narrative [facility] - 08/20/2024 11:58 PM CDT Fx results to [phone] karyn walker Jonathan Barboza DO LAB BLOOD ORDERABLES Final Result Performing Organization Address [facility] Co de Phone Number [facility] [address] Department [place] [address] * Lipid panel (03/16/2024 10:26 AM CDT) Cholesterol 177 30 - 199 mg/dL Comment: Interpretive Data Ages < or = 19 years Acceptable: <170 mg/dL Borderline high: 170-199 mg/dL High: >or= 200 mg/dL Ages > or = 20 years Desirable: <200 mg/dL Borderline high: 200-239 mg/dL High: >or= 240 mg/dL Literature References: 1. Expert Panel on Integrated Guidelines for Cardiovascular Health and Risk Reduction in Children and Adolescents. Pediatrics 2011;128:S213 2. NCEP Expert Panel. Circulation 2004;110:227 Current Interpretive Data was last revised on 2018. Triglycerides 90 <=149 mg/dL [facility] Comment: Interpretive Data Ages < or = 9 years Acceptable: <75 mg/dL Borderline high: 75-99 mg/dL High: >or= 100 mg/dL Ages 10 to 20 years Acceptable: <90 mg/dL Borderline high: 90-129 mg/dL High: >or= 130 mg/dL Ages > or = 20 years Desirable: <150 mg/dL Borderline high: 150-199 mg/dL High: 200-499 mg/dL Very high: >or= 499 mg/dL Literature References: 1. Expert Panel on Integrated Guidelines for Cardiovascular Health and Risk Reduction in Children and Adolescents. Pediatrics 2011;128:S213 2. NCEP Expert Panel. Circulation 2004;110:227 Current Interpretive Data was last revised on 2018. HDL 50 >=40 mg/dL [facility] Comment: Interpretive Data Ages < or = 19 years Acceptable: >45 mg/dL Borderline low: 40-45 mg/dL Low: <40 mg/dL Ages > or = 20 years Desirable: >or= 60 mg/dL Low: <40 mg/dL Literature References: 1. Expert Panel on Integrated Guidelines for Cardiovascular Health and Risk Reduction in Children and Adolescents. Pediatrics 2011;128:S213 2. NCEP Expert Panel. Circulation 2004;110:227 Current Interpretive Data was last revised on 2018. LDL, calculated 110 <=129 mg/dL [facility] Comment: Interpretive Data Ages < or = 19 years Acceptable: <110 mg/dL Borderline high: 110-129 mg/dL High: >or= 130 mg/dL Ages > or = 20 years Optimal: <100 mg/dL Near optimal: 100-129 mg/dL Borderline high: 130-159 mg/dL High: >160 mg/dL Calculated using the Alex LDL-C estimating equation. This equation was implemented on 2024. Prior to this date LDL-C was estimated using the Friedewald equation. Literature References: 1. Expert Panel on Integrated Guidelines for Cardiovascular Health and Risk Reduction in Children and Adolescents. Pediatrics 2011;128:S213 2. NCEP Expert Panel. Circulation 2004;110:227 3. Alex Boucher et al. GIGI Cardiol. 2019September 20;5(5):540-548. doi: 10.1001/jamacardio.2020.0013 Current Interpretive Data was last revised on 2024. Non-HDL Cholesterol 127 mg/dL [facility] Comment: Interpretive Data Ages < or = 19 years Acceptable: <120 mg/dL Borderline high: 120-144 mg/dL High: >145 mg/dL Ages > or = 20 years When triglycerides are >200 mg/dL, Non-HDL cholesterol is a secondary target of therapy with treatment goals that are 30 mg/dL greater than the LDL cholesterol target. Literature References: 1. Expert Panel on Integrated Guidelines for Cardiovascular Health and Risk Reduction in Children and Adolescents. Pediatrics 2011;128:S213 2. NCEP Expert Panel. Circulation 2004;110:227 Current Interpretive Data was last revised on 2018. Chol/HDL ratio 4 [facility] Blood 03/16/2024 10:2 6 AM CDT 03/16/2024 6:17 PM CDT Wiliam Callaway MD LAB BLOOD ORDERABLES Final Result [facility] [address] [place] [address] * Hepatitis C (HCV) RNA PCR, quantitative (12/29/2022 10:04 AM CDT) [facility] HCV RNA result Not Detected [facility] Comment: The quantifiable range of this assay is 15 IU/mL to 100,000,000 IU/mL (1.18 log IU/mL to 8.00 log IU/mL). Testing was performed by the [employer]ULAL[employer] 6800 HCV Test ([employer] Testing performed at [facility] Current Interpretive Data was last revised on 2020 Testing performed by: [facility], [address] [place]., [address] Blood 12/29/2022 10:0 4 AM CDT 12/29/2022 9:59 PM CDT Petey Arguelles MD LAB MICROBIOLOGY - GENERAL ORDERABLES Final Result [facility] [address] [place] [address] from Last 3 Months or Most Recently Relevant to [place] [address] MEDICARE [facility] MEDICARE SUPPLEMENT MEDICARE MEDICARE [employer] CLAIMS OFFICE MEDICARE [facility] MEDICARE SUPPLEMENT MEDICARE [employer] CLAIMS OFFICE TRANSPLANT [employer] MEDICARE Advance Directives For more information, please contact: [phone] * Full Code (Latest Code Status on File) Date Activated Date Inactivated Comments 11/24/2022 5:33 PM 11/29/2022 8:42 PM * Full Code Date Activated Date Inactivated Comments 11/24/2022 5:25 AM 11/24/2022 5:33 PM * Full Code Date Activated Date Inactivated Comments 11/10/2022 3:57 AM 11/10/2022 2:28 PM * Full Code Date Activated Date Inactivated Comments 10/01/2022 10:54 AM 10/02/2022 1:27 PM * Full Code Date Activated Date Inactivated Comments 07/22/2021 7:57 AM 07/22/2021 9:23 PM Care Teams Greens Cutter Relationship Specialty Start Date End Date Jonathan Barboza DO PCP - General Internal Medicine 03/26/20 Celeste Deutsch MD [address] [address] DIV SURG TRANSPLANT, [address] [address] Consulting Physician Transplant 09/11/20 Parag Stokes MD PhD [address] DIV SURG TRANSPLANT, [address] [address] Medical Oncologist/Continuous Improvement Manager Medical Oncology 12/31/20 Lynsey Lima MD [address] [facility] GASTROENTEROLOGY, [facility] [address] [place] [address] Referring Physician Gastroenterology 01/01/22 Danna Goss RN [address] [facility] [address] [place] [address] Turnstile Collector 11/25/22
[2025-01-22 15:54] LABS: Hemoglobin A1C 8.0 % (<5.7)
[2025-01-22 16:14] LABS: Alanine Aminotransferase 21 U/L (6-50); Albumin Level 4.4 g/dL (3.5-5.1); Alkaline Phosphatase 69 U/L (38-126); Anion Gap 10 mmol/L (4-12); Aspartate Amino Transferase 49 U/L (17-59); Bilirubin,Total 0.6 mg/dL (0.2-1.3); Blood Urea Nitrogen 26 mg/dL (9-20); Calcium 9.2 mg/dL (8.4-10.2); Carbon Dioxide 24 mmol/L (22-30); Chloride 103 mmol/L (98-107); Estimated Glomerular Filt Rate 49; Glucose 227 mg/dL (65-110); Potassium 4.7 mmol/L (3.4-5.0); Sodium 137 mmol/L (137-145); Total Protein 7.9 g/dL (6.3-8.2)
== END 2025-01-22 12:51 | disposition home or self-care (01) ==
LOC: ANHGOSHLAB 12:52
PROVIDERS: PCP Internal Medicine; Visit Provider Clinical Nurse Specialist
DX: E78.5 Hyperlipidemia, unspecified (principal); E11.9 Type 2 diabetes mellitus without complications; Z79.4 Long term (current) use of insulin
CPT/HCPCS: 36415; 80053; 83036